=== PATIENT | female | born 1960 | race Caucasian/White ===

== ENCOUNTER → 2025-05-03 | Outpatient (CLI) | payer MEDICARE, OTHER, SELFPAY ==
[2025-05-03 18:19] LABS: Hematocrit 39.9 % (37-47); Hemoglobin 12.7 g/dL (12.0-15.0); Mean Corp Hgb Conc 31.8 g/dL (32-36); Mean Corpuscular Volume 84.9 fL (81-99); Mean Platelet Vol. 9.9 fl (6.2-12.0); Platelet Count 278 K/mm3 (150-450); RBC Distribution Width CV 14.6 % (11.6-14.6); RBC Distribution Width SD 45.5 fl (35.1-43.9)
[2025-05-03 19:02] LABS: Iron 40 ug/dL (50-170)
--- OUTSIDE RECORDS SUMMARY | 2025-05-03 23:56 | XMS RPT_ITS | CCD ---
Author Organization [facility] Care Team Providers Care Echo Tech Name Role Phone LOUIE COHEN, DR TRACEY Primary Care Physician [phone] ADAM COHEN, DR LAUREL Dunn Attending Unavailab Rosalia COHEN, DR TRACEY Primary Care Unavailable VALE ZHANG, JOHN Whitehead Attending Giorgio ZHANG, JOHN Whitehead Consulting Giorgio MEDINA MD, DR LAUREL Dunn Referring Unavailab Joan COHEN, DR LAUREL Dunn Admitting Unavailab Rosalia COHEN, DR TRACEY Primary Care Unavailable Chandni Mi Attending Unavailable Jamie SAUNDERS Admitting Unavailable Jamie SAUNDERS Primary Care Unavailable Jamie SAUNDERS Attending Unavailable KYUNG PALMA MD Admitting Unavailable KYUNG PALMA MD Primary Care Unavailable KYUNG PALMA MD Attending Unavailable Jamie SAUNDERS Admitting Unavailable Jamie SAUNDERS Primary Care Unavailable Jamie SAUNDERS Attending Unavailable CHINEDU GARCIA MD Attending Unavailable RAKESH GRAHAM Consulting Unavailable CHINEDU GARCIA MD Admitting Unavailable CHINEDU GARCIA MD Primary Care Unavailable PROVIDER, UNKNOWN Consulting Unavailable KYUNG PALMA MD Admitting Unavailable KYUNG PALMA MD Primary Care Unavailable KYUNG PALMA MD Attending Unavailable Allergies Allergy Classification Reported Allergen(s) Allergy Type Date of Onset Reaction(s) Facility (1 source) Adhesive Tape Drug allergy (disorder) 10-19-2024 [facility] Repository (1 source) Latex Drug allergy (disorder) 10-19-2024 [facility] Repository Medications Current Medications Medication Drug Class(es) Dates Sig (Normalized) Sig (Original) acetaminophen 500 mg oral tablet (1 source) Start: 3 End: 3 take 1 tablet by mouth once daily acetaminophen 500 mg oral tablet Dose : 1,000 mg = 2 tab(s), Oral, TID, PRN as needed for pain, not to exceed 3000 mg/day, X 14 day(s), # 100 tab(s), 0 Refill(s), 06/26/23 7:36:00 AM EDT, Pharmacy: [facility], 167.6, cm, 06/11/23 15:03:00 EDT, Height, kg, 06/11/23 15:03:00 EDT, Dosing Weight Start Date: 06/12/23 Stop Date: 06/26/23 Status: Ordered amLODIPine 2.5 mg oral tablet (2 sources) Dihydropyridine Calcium Channel Abram Start: 3 take 1 tablet by mouth once daily amLODIPine 2.5 mg oral tablet TAKE 1 TABLET BY MOUTH ONCE DAILY Start Date: 05/22/23 Status: Ordered aspirin 81 mg delayed release oral tablet (1 source) Platelet Aggregation Inhibitor, Nonsteroidal Anti-inflammatory Drug Start: 3 End: 3 take 1 tablet by mouth twice daily aspirin 81 mg oral delayed release tablet Dose : 81 mg = 1 tab(s), Oral, BID, Take 81 mg aspirin twice daily with food for 4 weeks postoperatively for DVT prophylaxis., # 60 tab(s), 0 Refill(s), Pharmacy: [facility], 167.6, cm, 06/11/23 15:03:00 EDT, Height, kg, 06/11/23 15:03:00 EDT, Dosing Weight Start Date: 06/12/23 Stop Date: 07/12/23 Status: Ordered docusate sodium 50 mg / sennosides, half-way 8.6 mg oral tablet (1 source) Start: 3 End: 3 take 1 tablet by mouth twice daily Senokot S 50 mg-8.6 mg oral tablet Dose = 2 tab(s), Oral, BID, Take until first bowel movement, then as needed, X 3 day(s), # 12 tab(s), 0 Refill(s), Pharmacy: [facility], 167.6, cm, 06/11/23 15:03:00 EDT, Height, kg, 06/11/23 15:03:00 EDT, Dosing Weight Start Date: 06/12/23 Stop Date: 06/15/23 Status: Ordered doxycycline hyclate 100 mg oral capsule (1 source) Tetracycline-class Drug Start: 3 End: 3 doxycycline hyclate 100 mg oral capsule Dose : 100 mg = 1 cap(s), Oral, q12h, X 14 day(s), # 28 cap(s), 0 Refill(s), 06/26/23 7:37:00 AM EDT, Pharmacy: [facility], 167.6, cm, 06/11/23 15:03:00 EDT, Height, 81.8, kg, 06/11/23 15:03:00 EDT, Dosing Weight Start Date: 06/12/23 Stop Date: 06/26/23 Status: Ordered hydroxychloroquine sulfate 200 mg oral tablet (2 sources) Antimalarial, Antirheumatic Agent Start: 3 Plaquenil 200 mg oral tablet Dose : 400 mg = 2 tab(s), Oral, qDay, # 180 tab(s), 0 Refill(s) Start Date: 05/22/23 Status: Ordered meloxicam 7.5 mg oral tablet (1 source) Nonsteroidal Anti-inflammatory Drug Start: 3 Mobic 7.5 mg oral tablet Dose : 7.5 mg = 1 tab(s), Oral, BIDM, Do not take any other nonsteroidal anti-inflammatories while on meloxicam/Mobic, # 60 tab(s), 0 Refill(s), Pharmacy: [facility], 167.6, cm, 06/11/23 15:03:00 EDT, Height, kg, 06/11/23 15:03:00 EDT, Dosing Weight Start Date: 06/12/23 Status: Ordered oxyCODONE hydrochloride 5 mg oral tablet (1 source) Opioid Agonist Start: 3 End: 3 take 1-2 tablets by mouth every four hours as needed for pain oxyCODONE 5 mg oral tablet ( IMMEDIATE release ) See Instructions, PRN as needed for pain, 1-2 tab(s) Oral q4h, # 42 tab(s), 0 Refill(s), 06/19/23 7:38:00 AM EDT, Pharmacy: [facility], History of revision of total replacement of left hip joint, 167.6, cm, 06/11/23 15:03:00 EDT, Height, 81.8, kg, 06/11/23 15:03:00 EDT, Dosing Weight Start Date: 06/12/23 Stop Date: 06/19/23 Status: Ordered pantoprazole 20 mg delayed release oral tablet (2 sources) Proton Pump Inhibitor Start: 3 pantoprazole 20 mg oral enteric coated tablet Dose : 20 mg = 1 tab(s), Oral, qDay, # 30 tab(s), 0 Refill(s) Start Date: 05/22/23 Status: Ordered sertraline 25 mg oral tablet (2 sources) Serotonin Reuptake Inhibitor Start: 3 Zoloft 25 mg oral tablet Dose : 25 mg = 1 tab(s), Oral, Daily, # 90 tab(s), 0 Refill(s) Start Date: 05/22/23 Status: Ordered Vitamin D3 25 mcg (1000 intl units) oral tablet (2 sources) Start: 3 Vitamin D3 25 mcg (1000 intl units) oral tablet Dose : 25 mcg = 1 tab(s), Oral, qDay, # 30 tab(s), 0 Refill(s) Start Date: 05/22/23 Status: Ordered Problems Active Problems Problem Classification Problem Date Documented Da te Episodic/Chronic Cardiac dysrhythmias (1 source) Sinus bradycardia; Translations: [Bradycardia, unspecified] Onset: 06-12-2023 Episodic Deficiency and other anemia (1 source) Iron deficiency anemia, unspecified; Translations: [Iron deficiency anemia, unspecified] Onset: 02-02-2025 Episodic Essential hypertension (1 source) Essential hypertension; Translations: [Essential (primary) hypertension] Onset: 06-11-2023 Chronic Fluid and electrolyte disorders (1 source) Hyperkalemia; Translations: [Hyperkalemia] Onset: 06-12-2023 Episodic Osteoarthritis (1 source) Osteoarthritis; Translations: [Unspecified osteoarthritis, unspecified site] Onset: 06-11-2023 Chronic Other connective tissue disease (1 source) Hip joint prosthesis present; Translations: [Presence of left artificial hip joint] Onset: 06-12-2023 Chronic Other screening for suspected conditions (not mental disorders or infectious disease) (1 source) Encounter for screening for lipoid disorders; Translations: [Encounter for screening for lipoid disorders] Onset: 02-02-2025 Episodic Prolapse of female genital organs (2 sources) Cystocele, unspecified; Translations: [Rectocele] Onset: 04-12-2025 Chronic Rheumatoid arthritis and related disease (1 source) Rheumatoid arthritis; Translations: [Rheumatoid arthritis, unspecified] Onset: 06-11-2023 Chronic Systemic lupus erythematosus and connective tissue disorders (1 source) Sicca syndrome, unspecified; Translations: [Sjogren syndrome, unspecified] Onset: 02-02-2025 Chronic Past or Other Problems Problem Classification Problem Date Documented Da te Episodic/Chronic Other aftercare (3 sources) Other household worker (current) drug therapy; Translations: [Other skilled nursing (current) drug therapy] Onset: 01-06-2025 Episodic Other hematologic conditions (1 source) Other abnormality of red blood cells; Translations: [Other abnormality of red blood cells] Onset: 08-19-2024 Episodic Results Test Name Value Interpretation Reference Range Facility CT HI RES CHEST W/O CONTRAST on 04-30-2025 CT HI RES CHEST W/O CONTRAST [place] [address] Patient: ABBY DE LOS SANTOS Phone#: : 1960 Age: 64 Gender: F Pt. Type: Out Account: [id number] Location: [facility] Ordering: CHINEDU GARCIA Exam Date: 04/30/2025/8:14 Family Phys: RAKESH GRAHAM Charge Code: 582822 Physician: [place] Order #: [id number] Dose#: 23.80 PROCEDURE: CT HI RES CHEST WITHOUT CONTRAST COMPARISON: None. INDICATIONS: Rheumatoid arthritis. TECHNIQUE: CT images were created without the administration of contrast material. All CT scans at this facility use dose modulation, iterative reconstruction, and/or weight based dosing when appropriate to reduce radiation dose to as low as reasonably achievable. IV CONTRAST: No IV contrast used,0ml TOTAL DOSE: 23.80 CTDIvol(mGy) FINDINGS: LUNGS: Multiple bilateral calcified granulomas are present. Granulomas vary in size from 2 millimeters to 18 millimeters. Possibility of sarcoidosis is raised. Multiple bilateral bulla are present. VASCULATURE: Normal. Thrombus cannot be excluded without intravenous contrast. LITTLE: Normal. No mass or adenopathy. MEDIASTINUM: Normal. No mass or adenopathy. CARDIAC: Normal. No enlargement, pericardial thickening, or significant calcification. PLEURA: Normal. No mass or effusion. AORTA: Normal. No aneurysm. CHEST WALL: Normal. No mass or axillary adenopathy. LIMITED ABDOMEN: Normal. Limited images of the upper abdomen are unremarkable. BONES: Normal. No bony lesion or fracture. OTHER: Negative. CONCLUSION: 1. Multiple scattered granulomatous nodules. Possibility of sarcoidosis is raised. 2. Multiple bulla present bilaterally. Dictated by: Miriam Albright MD on 04/30/2025 at 13:20 Continued Report - Page 2 of 2 Patient: ABBY DE LOS SANTOS Phone#: : 1960 Age: 64 Gender: F Pt. Type: Out Account: [id number] Location: [facility] Ordering: CHINEDU GARCIA Exam Date: 04/30/2025/8:14 Family Phys: RAKESH GRAHAM Charge Code: 500515 Physician: [place] Order #: [id number] Dose#: 23.80 Approved by: Miriam Albright MD on 04/30/2025 at 14:20 Normal [facility] BUN/CREAT eGFR (NON-)on 01-06-2025 AGE 64 years Normal [facility] Comment on above: Performed By: #### 2 97007 #### [facility],[address] [place] [address] BUN/CREAT eGFR (NON-) Normal [facility] Comment on above: Result Comment: BUN/ CREATININE eGFR NON-) Performed By: #### 2 49111 #### [facility],[address] [place] [address] Creatinine [Mass/Vol] 0.58 mg/dL Normal 0.55 - 1.02 [facility] Comment on above: Performed By: #### 2 48923 #### [address] [address] GFR/1.73 sq M.predicted among non-blacks MDRD (S/P/Bld) [Vol rate/Area] mL/min/{1.73_m2} Normal 60 - 999 [facility] Comment on above: Result Comment: ACCO RDING TO THE NATIONAL KIDNEY DISEASE EDUCATION PROGRAM(NKDE),A NORMAL eGFR IS A VALUE GREATER THAN OR EQUAL TO 60 ML/MIN/1.73 SQ METERS.KIDNEY DISEASE MAY BE PRESENT WHEN THE eGFR IS LESS THAN 60 ML/MIN/1.73 SQ METERS.VALUES LESS THEN 15 ML/MIN/1.73 SQ METERS INDICATE KIDNEY FAILURE.THIS TEST SHOULD ONLY BE USED FOR PATIENTS 18 AND OLDER. Performed By: #### 2 84062 #### [address] [address] Urea nitrogen [Mass/Vol] 15 mg/dL Normal 7 - 18 [facility] Comment on above: Performed By: #### 2 92464 #### [address] [address] C-REACTIVE PROTEINon 025 CRP 0.43 mg/dl Normal 0.00 - 0.90 [facility] Comment on above: Performed By: #### 2 21180 #### [address] [address] CBC + DIFFon 01-06-2025 Baso # 0.01 x10EE3/UL Normal 0.00 - 0.10 [facility] Comment on above: Performed By: #### 2 92650 #### [address] [address] Basophils/100 WBC (Bld) 0.2 % Normal 0.0 - 2.0 [facility] Comment on above: Performed By: #### 2 96217 #### [address] [address] CBC + DIFF Normal [facility] Comment on above: Result Comment: CBC- COMPLETE BLOOD COUNT Performed By: #### 2 71500 #### [facility],[address] [place] [address] EO # 0.10 x10EE3/UL Normal 0.00 - 0.50 [facility] Comment on above: Performed By: #### 2 65247 #### [place] [id number] Eosinophils/100 WBC (Bld) 2.6 % Normal 0.0 - 7.0 [facility] Comment on above: Performed By: #### 2 42382 #### [facility],[address] [place] [address] Erythrocyte distribution width (RBC) [Ratio] 15.7 % High 12.0 - 15.6 [facility] Comment on above: Performed By: #### 2 01135 #### [facility],[address] [place], [place] [id number] Hematocrit (Bld) [Volume fraction] 37.5 % Normal 34.0 - 46.0 [facility] Comment on above: Performed By: #### 2 00239 #### [facility],[address] [place], [place] [id number] Hemoglobin (Bld) [Mass/Vol] 13.1 g/dL Normal 12.0 - 16.0 [facility] Comment on above: Performed By: #### 2 28225 #### [address] [address] Lymph # 0.78 x10EE3/UL Low 0.80 - 2.80 [facility] Comment on above: Performed By: #### 2 38918 #### [facility],[address] [place] [address] Lymphocytes/100 WBC (Bld) 20.5 % Normal 20.0 - 45.0 [facility] Comment on above: Performed By: #### 2 67237 #### [facility],[address] [place] [address] MANUAL DIFF N/A Normal [facility] Comment on above: Performed By: #### 2 47833 #### [facility],[address] [place] [address] MCH (RBC) [Entitic mass] 29 pg Normal 27 - 33 [facility] Comment on above: Performed By: #### 2 02655 #### [facility],[address] [place] [address] MCHC 35 X10 3 Normal 32 - 36 [facility] Comment on above: Performed By: #### 2 75325 #### [facility],[address] [place] [address] MCV (RBC) [Entitic vol] 83 fL Normal 80 - 99 [facility] Comment on above: Performed By: #### 2 78289 #### [facility],[address] [place] [address] [place] # 0.31 x10EE3/UL Normal 0.20 - 1.00 [facility] Comment on above: Performed By: #### 2 97121 #### [facility],[address] [place] [address] MONOS % 8.1 % Normal 0.0 - 10.0 [facility] Comment on above: Performed By: #### 2 48510 #### [facility],[address] [place] [address] Morphology Khoi (Bld) [Interp] N/A Normal [facility] Comment on above: Performed By: #### 2 54058 #### [facility],[address] [place] [address] Neut # 2.61 x10EE3/UL Normal 1.50 - 7.10 [facility] Comment on above: Performed By: #### 2 89882 #### [facility],[address] [place], [place] [address] Neutrophils/100 WBC (Bld) 68.6 % Normal 46.0 - 76.0 [facility] Comment on above: Performed By: #### 2 61827 #### [facility],[address] [place], [place] [id number] PLATELET 266 x10EE3/UL Normal 150 - 450 [facility] Comment on above: Performed By: #### 2 14212 #### [facility],[address] [place] [address] Platelet mean volume (Bld) [Entitic vol] 8.3 fL Normal 6.6 - 10.5 [facility] Comment on above: Result Comment: AUTO MATED DIFFERENTIAL Performed By: #### 2 46360 #### [facility],[address] [place] [address] RBC 4.53 x 10EE6/UL Normal 4.10 - 5.[address] [facility] Comment on above: Performed By: #### 2 74892 #### [facility],[address] [place], [place] [phone] WBC 3.8 x 10EE3/UL Low 4.5 - 10.8 [facility] Comment on above: Performed By: #### 2 99091 #### [facility],[address] [place] [address] SEDRATEon 01-06-2025 SEDRATE 6 mm/hr Normal 0 - 30 [facility] Comment on above: Performed By: #### 2 18374 #### [facility],[address] [place] [address] SGOT (AST)on 01-06-2025 AST [Catalytic activity/Vol] 22 U/L Normal 13 - 39 [facility] Comment on above: Performed By: #### 2 79356 #### [facility],[address] [place] [address] SGPT (ALT)on 01-06-2025 ALT [Catalytic activity/Vol] 24 U/L Normal 16 - 63 [facility] Comment on above: Performed By: #### 2 78448 #### [facility],[address] [place] [id number] [facility] Office Visit Reporton 09-02-2024 [facility] Office Visit Report [facility] [place] [address] 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 Is patient in pain?: No Allergies adhesive tape (tape) Adverse Reaction (Mild, Verified 10/19/24 07:59) irritation latex Adverse Reaction (Mild, Verified 10/19/24 07:59) irritation Medications ???Medication ???Instructions ???Recorded ???Confirmed ???Type acetaminophen 500 mg tablet 500 mg PO Q6H PRN 09/02/24 09/02/24 History (Tylenol Extra Strength) amlodipine 5 mg tablet 5 mg PO QDAY 09/02/24 09/02/24 History antiarthritic combination no.2 900 mg PO 09/02/24 09/02/24 History mg tablet (glucosamine-chondroi tin) ferrous sulfate 325 mg (65 mg 325 mg PO QDAY 09/02/24 09/02/24 History iron) tablet hydroxychloroquine 200 mg tablet 200 mg PO BID 09/02/24 09/02/24 History (Plaquenil) pantoprazole 20 mg tablet,delayed 20 mg PO QDAY 09/02/24 09/02/24 History release prednisone 5 mg tablet 5 mg PO DIRECTED 09/02/24 09/02/24 History sertraline 25 mg tablet 25 mg PO QDAY 09/02/24 09/02/24 History Post menopausal: Yes Current gender identity: female [facility] Medical History History of blood transfusion Left tibial fracture Facial bone fracture Surgical History S/P ORIF (open reduction internal fixation) fracture H/O laminectomy History of laparotomy History of total vaginal hysterectomy (TVH) History of left hip replacement Family History Father Alcoholism Arthritis Autoimmune disorder Mother Cancer Fallopian tubes Myocardial infarction Sister Anesthesia complication Bleeding disorder Hypertension Osteoporosis Grandmother Diabetes Brother COPD (chronic obstructive pulmonary disease) Asbestos related Social History (Updated 10/19/24 @ 08:03 by Cary Garcia) adopted: No household members: spouse housing: house number of children: 1 service: No current occupational status: retired pets and animals: Yes pets and animals: dog(s) history of recent travel: No sexually active: Yes current gender identity: female Smoking Status: Former smoker how long ago did patient quit smokin years ago quit status: quit date established alcohol intake: current substance use type: does not use well-balanced diet: daily or most days caffeine: Yes Type: coffee Number of servings: 2 what type of physical activity do you participate in: other details: rarely mathew/hinduism: Congregation seatbelt use: always do you feel safe at home: Yes additional social history: - Bertrand HPI Encounter for routine gynecological examination Details: ABBY DE LOS SANTOS is a 63 year old who presents for annual exam. She has previous TVH due to heavy periods; she is unsure if ovaries were removed as well; no records for review thus far; request has been placed. She reports no issues or concerns today. Last PAP: 08/2013 History of abnormal PAP: None Last mammogram: 05/2024; normal. History of abnormal mammogram: none Colon cancer screening: Scheduled 10/23/24 on Saturday-Dr. Sharp. Other preventative health care screenings: PCP: Dr. Latouf. Stern. Female Reproductive History Questions: metorrhagia: No, sexually active: Yes, dyspareunia: No and PCB: No Menopausal Symptoms: No hot flashes, No night sweats, No weight change, No mood changes, No difficulty concentrating and No sleep problems ROS Const Constitutional: Denies chills, fatigue, fever(s), headache(s), night sweats or weight loss Eyes Eyes: Denies change in vision ENT ENT: Denies dizziness Cardio Card: Denies palpitations Resp Resp: Denies cough or dyspnea GI GI: Denies abdominal pain, constipation or nausea : Reports prolapse symptoms; Denies difficulty voiding, dysuria, hematuria, hot flashes, nipple discharge, pelvic pain, urinary incontinence, urinary urgency, vaginal discharge, vaginal dryness, vaginal odor or vaginal pruritus Skin Skin/Breast: Denies alopecia, rash, breast mass, breast pain, breast skin changes or nipple discharge Neuro Neuro: Denies dizziness Psych Psych: Denies anxiety, depression or difficulty concentrating Endo Endo: Denies cold intolerance, excessive sweating or heat intolerance Exam Const General: cooperative, healthy appearing, no acute distress and well groomed Nutritional Appearance: well nourished O (more content not included)... Normal [facility] CBC + DIFFon 08-19-2024 Baso # 0.02 x10EE3/UL Normal 0.00 - 0.10 [facility] Comment on above: Performed By: #### 2 10060 #### [facility],[address] [place], [place] [phone] Basophils/100 WBC (Bld) 0.5 % Normal 0.0 - 2.0 [facility] Comment on above: Performed By: #### 2 36772 #### [facility],[address] [place] [address] CBC + DIFF Normal [facility] Comment on above: Result Comment: CBC- COMPLETE BLOOD COUNT Performed By: #### 2 87508 #### [facility],[address] [place], [place] [phone] EO # 0.05 x10EE3/UL Normal 0.00 - 0.50 [facility] Comment on above: Performed By: #### 2 45384 #### [facility],[address] [place] [address] Eosinophils/100 WBC (Bld) 1.5 % Normal 0.0 - 7.0 [facility] Comment on above: Performed By: #### 2 26044 #### [facility],[address] [place], [place] [phone] Erythrocyte distribution width (RBC) [Ratio] 17.9 % High 12.0 - 15.6 [facility] Comment on above: Performed By: #### 2 82634 #### [facility],[address] [place] [address] Hematocrit (Bld) [Volume fraction] 38.5 % Normal 34.0 - 46.0 [facility] Comment on above: Performed By: #### 2 31644 #### [facility],[address] [place] [address] Hemoglobin (Bld) [Mass/Vol] 12.3 g/dL Normal 12.0 - 16.0 [facility] Comment on above: Performed By: #### 2 54503 #### [facility],[address] [place] [address] Lymph # 0.85 x10EE3/UL Normal 0.80 - 2.80 [facility] Comment on above: Performed By: #### 2 37757 #### [facility],[address] [place] [address] Lymphocytes/100 WBC (Bld) 23.7 % Normal 20.0 - 45.0 [facility] Comment on above: Performed By: #### 2 57241 #### [facility],[address] [place] [address] MANUAL DIFF N/A Normal [facility] Comment on above: Performed By: #### 2 84650 #### [facility],[address] [place], [place] [phone] MCH (RBC) [Entitic mass] 25 pg Low 27 - 33 [facility] Comment on above: Performed By: #### 2 70379 #### [facility],[address] [place] [address] MCHC 32 X10 3 Normal 32 - 36 [facility] Comment on above: Performed By: #### 2 32503 #### [facility],[address] [place] [address] MCV (RBC) [Entitic vol] 79 fL Low 80 - 99 [facility] Comment on above: Performed By: #### 2 28220 #### [facility],[address] [place] [address] [place] # 0.33 x10EE3/UL Normal 0.20 - 1.00 [facility] Comment on above: Performed By: #### 2 90213 #### [facility],[address] [place] [address] 89008 MONOS % 9.3 % Normal 0.0 - 10.0 [facility] Comment on above: Performed By: #### 2 37636 #### [facility],[address] [place] [address] 56901 Morphology Khoi (Bld) [Interp] N/A Normal [facility] Comment on above: Performed By: #### 2 92697 #### [facility],[address] [place] [address] 24796 Neut # 2.35 x10EE3/UL Normal 1.50 - 7.10 [facility] Comment on above: Performed By: #### 2 33870 #### [facility],[address] [place] [address] 31865 Neutrophils/100 WBC (Bld) 65.1 % Normal 46.0 - 76.0 [facility] Comment on above: Performed By: #### 2 31801 #### [facility],[address] [place] [address] 76454 PLATELET 284 x10EE3/UL Normal 150 - 450 [facility] Comment on above: Performed By: #### 2 61697 #### [facility],[address] [place] [address] 78331 Platelet mean volume (Bld) [Entitic vol] 8.3 fL Normal 6.6 - 10.5 [facility] Comment on above: Result Comment: AUTO MATED DIFFERENTIAL Performed By: #### 2 41657 #### [facility],[address] [place] [address] 55894 RBC 4.85 x 10EE6/UL Normal 4.10 - 5.[address] [facility] Comment on above: Performed By: #### 2 58539 #### [facility],[address] [place] [address] 83761 WBC 3.6 x 10EE3/UL Low 4.5 - 10.8 [facility] Comment on above: Performed By: #### 2 19591 #### [facility],[address] [place] [address] 78298 FERRITINon 08-19-2024 Ferritin [Mass/Vol] 21 ng/mL Normal 8 - 388 [facility] Comment on above: Performed By: #### 2 62292 #### [facility],[address] [place] [address] 64247 IRON AND TIBCon 08-19-2024 %SATURATION 10 % Normal [facility] Comment on above: Performed By: #### 2 52690 #### [facility],[address] [place] [address] 02095 Iron [Mass/Vol] 43 ug/dL Low 50 - 170 [facility] Comment on above: Performed By: #### 2 22208 #### [facility],[address] [place] [address] 10424 TIBC 442 ug/dl Normal 250 - 450 [facility] Comment on above: Performed By: #### 2 88001 #### [facility],[address] [place] [address] 00925 UIBC 399 ug/dL High 155 - 355 [facility] Comment on above: Performed By: #### 2 58354 #### [facility],[address] [place] [address] 83463 BUN/CREAT eGFR (NON-)on 07-07-2024 AGE 63 years Normal [facility] Comment on above: Performed By: #### 2 36906 #### [facility],[address] [place] [address] 68046 BUN/CREAT eGFR (NON-) Normal [facility] Comment on above: Result Comment: BUN/ CREATININE eGFR NON-) Performed By: #### 2 72591 #### [facility],[address] [place] [address] Creatinine [Mass/Vol] 0.64 mg/dL Normal 0.55 - 1.02 [facility] Comment on above: Performed By: #### 2 66355 #### [facility],[address] [place], [place] [address] GFR/1.73 sq M.predicted among non-blacks MDRD (S/P/Bld) [Vol rate/Area] mL/min/{1.73_m2} Normal 60 - 999 [facility] Comment on above: Result Comment: ACCO RDING TO THE NATIONAL KIDNEY DISEASE EDUCATION PROGRAM(NKDE),A NORMAL eGFR IS A VALUE GREATER THAN OR EQUAL TO 60 ML/MIN/1.73 SQ METERS.KIDNEY DISEASE MAY BE PRESENT WHEN THE eGFR IS LESS THAN 60 ML/MIN/1.73 SQ METERS.VALUES LESS THEN 15 ML/MIN/1.73 SQ METERS INDICATE KIDNEY FAILURE.THIS TEST SHOULD ONLY BE USED FOR PATIENTS 18 AND OLDER. Performed By: #### 2 47141 #### [facility],[address] [place] [address] 47031 Urea nitrogen [Mass/Vol] 14 mg/dL Normal 7 - 18 [facility] Comment on above: Performed By: #### 2 31736 #### [facility],[address] [place] [address] 51557 C-REACTIVE PROTEINon 024 CRP 0.92 mg/dl High 0.00 - 0.90 [facility] Comment on above: Performed By: #### 2 41314 #### [facility],[address] [place], [place] [address] CBC + DIFFon 07-07-2024 Baso # 0.02 x10EE3/UL Normal 0.00 - 0.10 [facility] Comment on above: Performed By: #### 2 43465 #### [facility],[address] [place] [address] 73522 Basophils/100 WBC (Bld) 0.5 % Normal 0.0 - 2.0 [facility] Comment on above: Performed By: #### 2 93304 #### [facility],[address] [place] [address] 61083 CBC + DIFF Normal [facility] Comment on above: Result Comment: CBC- COMPLETE BLOOD COUNT Performed By: #### 2 38276 #### [facility],[address] [place] [address] EO # 0.07 x10EE3/UL Normal 0.00 - 0.50 [facility] Comment on above: Performed By: #### 2 11588 #### [facility],[address] [place] [address] 81575 Eosinophils/100 WBC (Bld) 1.4 % Normal 0.0 - 7.0 [facility] Comment on above: Performed By: #### 2 58246 #### [facility],[address] [place], [place] [address] Erythrocyte distribution width (RBC) [Ratio] 16.6 % High 12.0 - 15.6 [facility] Comment on above: Performed By: #### 2 24474 #### [facility],[address] [place] [address] Hematocrit (Bld) [Volume fraction] 38.1 % Normal 34.0 - 46.0 [facility] Comment on above: Performed By: #### 2 68392 #### [facility],[address] [place] [address] 65882 Hemoglobin (Bld) [Mass/Vol] 12.4 g/dL Normal 12.0 - 16.0 [facility] Comment on above: Performed By: #### 2 64952 #### [facility],[address] [place] [address] Lymph # 1.03 x10EE3/UL Normal 0.80 - 2.80 [facility] Comment on above: Performed By: #### 2 71162 #### [facility],[address] [place], [place] [address] Lymphocytes/100 WBC (Bld) 21.1 % Normal 20.0 - 45.0 [facility] Comment on above: Performed By: #### 2 51856 #### [facility],[address] [place] [address] MANUAL DIFF N/A Normal [facility] Comment on above: Performed By: #### 2 93040 #### [facility],[address] [place] [address] MCH (RBC) [Entitic mass] 25 pg Low 27 - 33 [facility] Comment on above: Performed By: #### 2 09783 #### [facility],[address] [place] [address] 95378 MCHC 33 X10 3 Normal 32 - 36 [facility] Comment on above: Performed By: #### 2 66781 #### [facility],[address] [place] [address] 13370 MCV (RBC) [Entitic vol] 76 fL Low 80 - 99 [facility] Comment on above: Performed By: #### 2 95415 #### [facility],[address] [place] [address] 16227 Marin # 0.35 x10EE3/UL Normal 0.20 - 1.00 [facility] Comment on above: Performed By: #### 2 31570 #### [facility],[address] [place] [address] 71245 MONOS % 7.0 % Normal 0.0 - 10.0 [facility] Comment on above: Performed By: #### 2 88232 #### [facility],[address] [place] [address] 54006 Morphology Khoi (Bld) [Interp] N/A Normal [facility] Comment on above: Performed By: #### 2 50430 #### [facility],[address] [place] [address] 29910 Neut # 3.44 x10EE3/UL Normal 1.50 - 7.10 [facility] Comment on above: Performed By: #### 2 34860 #### [facility],[address] [place] [address] 79085 Neutrophils/100 WBC (Bld) 70.1 % Normal 46.0 - 76.0 [facility] Comment on above: Performed By: #### 2 96721 #### [facility],[address] [place] [address] 85991 PLATELET 294 x10EE3/UL Normal 150 - 450 [facility] Comment on above: Performed By: #### 2 60338 #### [facility],[address] [place] [address] 76802 Platelet mean volume (Bld) [Entitic vol] 8.2 fL Normal 6.6 - 10.5 [facility] Comment on above: Result Comment: AUTO MATED DIFFERENTIAL Performed By: #### 2 18534 #### [facility],[address] [place] [address] 37791 RBC 5.04 x 10EE6/UL Normal 4.10 - 5.[address] [facility] Comment on above: Performed By: #### 2 49854 #### [facility],[address] [place] [address] 64240 WBC 4.9 x 10EE3/UL Normal 4.5 - 10.8 [facility] Comment on above: Performed By: #### 2 30608 #### [facility],[address] [place] [address] 57731 SEDRATEon 07-07-2024 SEDRATE 7 mm/hr Normal 0 - 30 [facility] Comment on above: Performed By: #### 2 63330 #### [facility],[address] [place], [place] [address] SGOT (AST)on 07-07-2024 AST [Catalytic activity/Vol] 21 U/L Normal 13 - 39 [facility] Comment on above: Performed By: #### 2 91676 #### [facility],[address] [place], [place] [address] SGPT (ALT)on 07-07-2024 ALT [Catalytic activity/Vol] 18 U/L Normal 16 - 63 [facility] Comment on above: Performed By: #### 2 31921 #### [facility],[address] [place] [address] .Auto Diffon 06-12-2023 Basophil, Absolute 0.0 10 3/mcL Normal 0.0-0.2 [facility] ([place]) Comment on above: Performed By: #### A DIFF, ANEU, BMP, CBC, GFR #### [address] [address] Basophils/100 WBC (Bld) 0.1 % Normal 0.0-2.5 [facility] ([place]) Comment on above: Performed By: #### A DIFF, ANEU, BMP, CBC, GFR #### [address] [address] Eosinophil, Absolute 0.0 10 3/mcL Normal 0.0-0.4 [facility] ([place]) Comment on above: Performed By: #### A DIFF, ANEU, BMP, CBC, GFR #### [address] [address] Eosinophils/100 WBC (Bld) 0.0 % Normal 0.0-7.0 [facility] ([place]) Comment on above: Performed By: #### A DIFF, ANEU, BMP, CBC, GFR #### [address] [address] Lymphocyte, Absolute 0.6 10 3/mcL Low 0.8-3.9 [facility] ([place]) Comment on above: Performed By: #### A DIFF, ANEU, BMP, CBC, GFR #### [address] [address] Lymphocytes/100 WBC (Bld) 6.7 % Low 10.0-50.0 [facility] ([place]) Comment on above: Performed By: #### A DIFF, ANEU, BMP, CBC, GFR #### [address] [address] Monocyte, Absolute 0.5 10 3/mcL Normal 0.2-1.0 [facility] ([place] Comment on above: Performed By: #### A DIFF, ANEU, BMP, CBC, GFR #### [address] [address] Monocytes/100 WBC (Bld) 6.2 % Normal 1.7-13.0 [facility] ([place]) Comment on above: Performed By: #### A DIFF, ANEU, BMP, CBC, GFR #### [address] [address] Neutrophils/100 WBC (Bld) 87.0 % High 37.0-80.0 [facility] ([place]) Comment on above: Performed By: #### A DIFF, ANEU, BMP, CBC, GFR #### [address] [address] .GFRon 06-12-2023 GFR Non- 86 ml/min/1.73sqm Normal [facility] ([place]) Comment on above: Result Comment: GFR Population mean for , Non- Americans Ages 20-29 = 116 mL/min/1.73 sq.m. Ages 30-39 = 107 mL/min/1.73 sq.m. Ages 40-49 = 99 mL/min/1.73 sq.m. Ages 50-59 = 93 mL/min/1.73 sq.m. Ages 60-69 = 85 mL/min/1.73 sq.m. Ages 70+ = 75 mL/min/1.73 sq.m. Chronic Kidney Disease: Less than 60 mL/min/1.73 square meters End Stage Renal Disease: Less than 15 mL/min/1.73 square meters Performed By: #### A DIFF, ANEU, BMP, CBC, GFR #### [address] [address] GFR 104 ml/min/1.73sqm Normal [facility] ([place]) Comment on above: Result Comment: GFR Population mean for , Non- Americans Ages 20-29 = 116 mL/min/1.73 sq.m. Ages 30-39 = 107 mL/min/1.73 sq.m. Ages 40-49 = 99 mL/min/1.73 sq.m. Ages 50-59 = 93 mL/min/1.73 sq.m. Ages 60-69 = 85 mL/min/1.73 sq.m. Ages 70+ = 75 mL/min/1.73 sq.m. Chronic Kidney Disease: Less than 60 mL/min/1.73 square meters End Stage Renal Disease: Less than 15 mL/min/1.73 square meters Performed By: #### A DIFF, ANEU, BMP, CBC, GFR #### [address] [address] .NEUABSon 06-12-2023 Neutrophil, Absolute 7.5 10 3/mcL High 2.9-6.2 [facility] ([place]) Comment on above: Performed By: #### A DIFF, ANEU, BMP, CBC, GFR #### [address] [address] BMPon 06-12-2023 BUN/Creatinine Ratio 14 ratio Normal 7-27 [facility] ([place]) Comment on above: Performed By: #### A DIFF, ANEU, BMP, CBC, GFR #### [address] [address] Calcium [Mass/Vol] 8.3 mg/dL Low 8.4-10.2 [facility] ([place]) Comment on above: Performed By: #### A DIFF, ANEU, BMP, CBC, GFR #### [address] [address] Chloride [Moles/Vol] 106 mmol/L Normal 98-107 [facility] ([place]) Comment on above: Performed By: #### A DIFF, ANEU, BMP, CBC, GFR #### [address] [address] CO2 [Moles/Vol] 30 mmol/L Normal 23-31 [facility] ([place]) Comment on above: Performed By: #### A DIFF, ANEU, BMP, CBC, GFR #### [address] [address] Creatinine [Mass/Vol] 0.69 mg/dL Normal 0.55-1.02 [facility] ([place]) Comment on above: Performed By: #### A DIFF, ANEU, BMP, CBC, GFR #### [address] [address] Electrolyte Balance 5.0 mEq/L Normal 4.0-15.0 [facility] ([place]) Comment on above: Performed By: #### A DIFF, ANEU, BMP, CBC, GFR #### [address] [address] Glucose [Mass/Vol] 111 mg/dL Normal 80-115 [facility] ([place]) Comment on above: Performed By: #### A DIFF, ANEU, BMP, CBC, GFR #### [address] [address] Potassium [Moles/Vol] 5.5 mmol/L High 3.5-5.1 [facility] ([place]) Comment on above: Performed By: #### A DIFF, ANEU, BMP, CBC, GFR #### [address] [address] Sodium [Moles/Vol] 141 mmol/L Normal 136-145 [facility] ([place]) Comment on above: Performed By: #### A DIFF, ANEU, BMP, CBC, GFR #### [address] [address] Urea nitrogen [Mass/Vol] 10 mg/dL Normal 7-18 [facility] ([place]) Comment on above: Performed By: #### A DIFF, ANEU, BMP, CBC, GFR #### [address] [address] CBCon 06-12-2023 Erythrocyte distribution width (RBC) [Ratio] 15.8 % High 11.5-14.5 [facility] ([place]) Comment on above: Performed By: #### A DIFF, ANEU, BMP, CBC, GFR #### [address] [address] Hematocrit (Bld) [Volume fraction] 34.1 % Low 37.0-47.0 [facility] ([place]) Comment on above: Performed By: #### A DIFF, ANEU, BMP, CBC, GFR #### [place] [id number] Hgb 11.2 G/dL Low 12.0-16.0 [facility] ([place] Comment on above: Performed By: #### A DIFF, ANEU, BMP, CBC, GFR #### [address] [address] MCH (RBC) [Entitic mass] 26.9 pg Low 27.0-31.2 [facility] ([place]) Comment on above: Performed By: #### A DIFF, ANEU, BMP, CBC, GFR #### [place] [id number] MCHC 32.9 G/dL Low 33.0-37.0 [facility] ([place] Comment on above: Performed By: #### A DIFF, ANEU, BMP, CBC, GFR #### [address] [address] MCV (RBC) [Entitic vol] 81.6 fL Normal 80.0-94.0 [facility] ([place]) Comment on above: Performed By: #### A DIFF, ANEU, BMP, CBC, GFR #### [address] [address] Platelet 220 10 3/mcL Normal 130-400 [facility] ([place] Comment on above: Performed By: #### A DIFF, ANEU, BMP, CBC, GFR #### [place] [id number] Platelet mean volume (Bld) [Entitic vol] 8.3 fL Normal 7.4-10.4 [facility] ([place]) Comment on above: Performed By: #### A DIFF, ANEU, BMP, CBC, GFR #### [place] [address] [place], [place] [address] RBC 4.18 10 6/mcL Low 4.20-5.40 [facility] ([place]) Comment on above: Performed By: #### A DIFF, ANEU, BMP, CBC, GFR #### [place] [address] [place], [place] [address] WBC 8.7 10 3/mcL Normal 4.6-10.8 [facility] ([place]) Comment on above: Performed By: #### A DIFF, ANEU, BMP, CBC, GFR #### [address] [address] LABORATORYOrdered By: SYSTEM SYSTEM on 06-12-2023 Basophil, Absolute 0.0 103/mcL Invalid Interpretation Code 0.0 - 0.2 10^3/mcL AO Workflow SS Basophils/100 WBC (Bld) 0.1 % Invalid Interpretation Code 0.0 - 2.5 % AO Workflow SS Calcium [Mass/Vol] 8.3 mg/dL Invalid Interpretation Code 8.4 - 10.2 mg/dL AO ADM SS Chloride [Moles/Vol] 106 mmol/L Invalid Interpretation Code 98 - 107 mmol/L AO ADM SS CO2 [Moles/Vol] 30 mmol/L Invalid Interpretation Code 23 - 31 mmol/L AO ADM SS Creatinine [Mass/Vol] 0.69 mg/dL Invalid Interpretation Code 0.55 - 1.02 mg/dL AO ADM SS Electrolyte Balance 5.0 mEq/L Invalid Interpretation Code 4.0 - 15.0 mEq/L AO ADM SS Eosinophil, Absolute 0.0 103/mcL Invalid Interpretation Code 0.0 - 0.4 10^3/mcL AO Workflow SS Eosinophils/100 WBC (Bld) 0.0 % Invalid Interpretation Code 0.0 - 7.0 % AO Workflow SS Erythrocyte distribution width (RBC) [Ratio] 15.8 % Invalid Interpretation Code 11.5 - 14.5 % AO Workflow SS GFR/1.73 sq M.predicted among blacks MDRD (S/P/Bld) [Vol rate/Area] 104 ml/min/1.73sqm Invalid Interpretation Code AO Chemistry S Comment on above: Interpretive Data: GFR Population mean for , Non- Americans Ages 20-29 = 116 mL/min/1.73 sq.m. Ages 30-39 = 107 mL/min/1.73 sq.m. Ages 40-49 = 99 mL/min/1.73 sq.m. Ages 50-59 = 93 mL/min/1.73 sq.m. Ages 60-69 = 85 mL/min/1.73 sq.m. Ages 70+ = 75 mL/min/1.73 sq.m. Chronic Kidney Disease: Less than 60 mL/min/1.73 square meters End Stage Renal Disease: Less than 15 mL/min/1.73 square meters GFR/1.73 sq M.predicted among non-blacks MDRD (S/P/Bld) [Vol rate/Area] 86 ml/min/1.73sqm Invalid Interpretation Code AO Chemistry S Comment on above: Interpretive Data: GFR Population mean for , Non- Americans Ages 20-29 = 116 mL/min/1.73 sq.m. Ages 30-39 = 107 mL/min/1.73 sq.m. Ages 40-49 = 99 mL/min/1.73 sq.m. Ages 50-59 = 93 mL/min/1.73 sq.m. Ages 60-69 = 85 mL/min/1.73 sq.m. Ages 70+ = 75 mL/min/1.73 sq.m. Chronic Kidney Disease: Less than 60 mL/min/1.73 square meters End Stage Renal Disease: Less than 15 mL/min/1.73 square meters Glucose [Mass/Vol] 111 mg/dL Invalid Interpretation Code 80 - 115 mg/dL AO ADM SS Hematocrit (Bld) [Volume fraction] 34.1 % Invalid Interpretation Code 37.0 - 47.0 % AO Workflow SS Hemoglobin (Bld) [Mass/Vol] 11.2 G/dL Invalid Interpretation Code 12.0 - 16.0 G/dL AO Workflow SS Lymphocyte, Absolute 0.6 103/mcL Invalid Interpretation Code 0.8 - 3.9 10^3/mcL AO Workflow SS Lymphocytes/100 WBC (Bld) 6.7 % Invalid Interpretation Code 10.0 - 50.0 % AO Workflow SS MCH (RBC) [Entitic mass] 26.9 pg Invalid Interpretation Code 27.0 - 31.2 pg AO Workflow SS MCHC 32.9 G/dL Invalid Interpretation Code 33.0 - 37.0 G/dL AO Workflow SS MCV (RBC) [Entitic vol] 81.6 fL Invalid Interpretation Code 80.0 - 94.0 fL AO Workflow SS Monocyte, Absolute 0.5 103/mcL Invalid Interpretation Code 0.2 - 1.0 10^3/mcL AO Workflow SS Monocytes/100 WBC (Bld) 6.2 % Invalid Interpretation Code 1.7 - 13.0 % AO Workflow SS Neutrophil, Absolute 7.5 103/mcL Invalid Interpretation Code 2.9 - 6.2 10^3/mcL AO Workflow SS Neutrophils/100 WBC (Bld) 87.0 % Invalid Interpretation Code 37.0 - 80.0 % AO Workflow SS Platelet mean volume (Bld) [Entitic vol] 8.3 fL Invalid Interpretation Code 7.4 - 10.4 fL AO Workflow SS Platelets (Bld) [#/Vol] 220 103/mcL Invalid Interpretation Code 130 - 400 10^3/mcL AO Workflow SS Potassium [Moles/Vol] 5.5 mmol/L Invalid Interpretation Code 3.5 - 5.1 mmol/L AO ADM SS RBC (Bld) [#/Vol] 4.18 106/mcL Invalid Interpretation Code 4.20 - 5.40 10^6/mcL AO Workflow SS Sodium [Moles/Vol] 141 mmol/L Invalid Interpretation Code 136 - 145 mmol/L AO ADM SS Urea nitrogen [Mass/Vol] 10 mg/dL Invalid Interpretation Code 7 - 18 mg/dL AO ADM SS Urea nitrogen/Creatinine [Mass ratio] 14 ratio Invalid Interpretation Code 7 - 27 ratio AO ADM SS WBC (Bld) [#/Vol] 8.7 103/mcL Invalid Interpretation Code 4.6 - 10.8 10^3/mcL AO Workflow SS XR FLUORO 1-2 HRS TECH TIMEo n 06-12-2023 XR FLUORO 1-2 HRS TECH TIME ORIGINAL Images acquired, not reported on this accession number. Normal [facility] ([place]) Gel ABOon 06-11-2023 ABO/Rh Interp Positive Invalid Interpretation Code [facility] ([place]) Comment on above: Performed By: #### A NSG, ABOG ####[id number] [place], [place] [address] Gel ABSon 06-11-2023 Antibody Screen Gel Negative Normal [facility] ([place]) Comment on above: Performed By: #### A JOCELYNN ENGLISH ####[id number] [place], [place] [address] LABORATORYOrdered By: Hermilo Ford on 06-11-2023 ABO/Rh Interp Positive Invalid Interpretation Code AO BB SS Antibody Screen Gel Negative ABSC (06/11/23 8:47 AM) Invalid Interpretation Code AO BB SS No Panel Informationon 06-11 AFS Acid Fast Smear from Concentrated Specimen: Negative [facility] Culture Tissue No growth to date [facility] FUNSM No fungal elements observed by calcofluor white stain. [facility] GS 2+ White Blood Cells No organisms seen. [facility] AFS Acid Fast Smear from Concentrated Specimen: Negative [facility] Culture Tissue No growth to date [facility] FUNSM No fungal elements observed by calcofluor white stain. [facility] GS 2+ Polymorphonuclear cells No organisms seen. [facility] AFS Acid Fast Smear from Concentrated Specimen: Negative [facility] Culture Tissue No growth to date [facility] FUNSM No fungal elements observed by calcofluor white stain. [facility] GS 2+ White Blood Cells No organisms seen. [facility] XR HIP LEFT W/PELVIS 4 VIEWS on 06-11-2023 XR HIP LEFT W/PELVIS 4 VIEWS ORIGINAL EXAMINATION: 3 XRAY VIEWS OF THE LEFT HIP.06/11/2023 2:21 pm COMPARISON: None HISTORY: ORDERING SYSTEM PROVIDED HISTORY: Reason for Exam: Status Post Arthroplasty FINDINGS: The pelvis appears intact. Left hip arthroplasty is in near anatomic alignment. Expected periarticular and subcutaneous gas are noted. No acute fracture or dislocation. IMPRESSION: Expected postoperative findings of left hip arthroplasty. Interpreted by: James Baetty DO Preliminary Report By: James Beatty DO Electronically signed By James Beatty DO Dictated Date: 06/11/2023 2:45:21 PM Prelim Date: 06/11/2023 2:46:00 PM Sign Date: 06/11/2023 2:46:00 PM Ordering Provider: LAUREL MEDINA [facility] ([place]) XR CHEST 2 VIEWSon 3 XR CHEST 2 VIEWS ORIGINAL EXAMINATION: TWO XRAY VIEWS OF THE CHEST05/22/2023 2:16 pm COMPARISON: None HISTORY: ORDERING SYSTEM PROVIDED HISTORY: Reason for Exam: Pre-admission testing, URI 3 weeks ago. Long history of smoking FINDINGS: Heart and mediastinum: Cardiomediastinal silhouette is normal. Lungs and pleura: No consolidation or edema. No effusion or pneumothorax. Calcified granuloma in the left lower lobe. Bones: No acute bony abnormality. Degenerative spine. Mildly prominent costochondral calcifications. IMPRESSION: No acute cardiopulmonary process. I have personally reviewed the images of this examination and agree with the resident's findings and interpretation. Interpreted by: Fernando Mcgovern MD Preliminary Report By: Narendra Martini Electronically signed By Fernando Mcgovern MD Dictated Date: 05/23/2023 2:09:13 PM Prelim Date: 05/23/2023 4:28:47 PM Sign Date: 05/23/2023 4:28:47 PM Ordering Provider: LAUREL MEDINA [facility] ([place]) .Auto Diffon 05-22-2023 Basophil, Absolute 0.0 10 3/mcL Normal 0.0-0.2 [facility] ([place]) Comment on above: Performed By: #### A BOG, ADIFF, GFR, ANEU, CBC, BMP, ALB, ANSG ####[address] [place], [place] [address] Basophils/100 WBC (Bld) 0.6 % Normal 0.0-2.5 [facility] ([place]) Comment on above: Performed By: #### A BOG, ADIFF, GFR, ANEU, CBC, BMP, ALB, ANSG ####[address] [place], [place] [address] Eosinophil, Absolute 0.1 10 3/mcL Normal 0.0-0.4 [facility] ([place]) Comment on above: Performed By: #### A BOG, ADIFF, GFR, ANEU, CBC, BMP, ALB, ANSG ####Chance [address] [place], [place] [address] Eosinophils/100 WBC (Bld) 3.0 % Normal 0.0-7.0 [facility] ([place]) Comment on above: Performed By: #### A BOG, ADIFF, GFR, ANEU, CBC, BMP, ALB, ANSG ####Chance [address] [place], [place] [address] Lymphocyte, Absolute 0.9 10 3/mcL Normal 0.8-3.9 [facility] ([place]) Comment on above: Performed By: #### A BOG, ADIFF, GFR, ANEU, CBC, BMP, ALB, ANSG ####Chance [id number] [place], [place] [address] Lymphocytes/100 WBC (Bld) 20.7 % Normal 10.0-50.0 [facility] ([place]) Comment on above: Performed By: #### A BOG, ADIFF, GFR, ANEU, CBC, BMP, ALB, ANSG ####[address]ance [address] [place], [place] [address] Monocyte, Absolute 0.4 10 3/mcL Normal 0.2-1.0 [facility] ([place]) Comment on above: Performed By: #### A BOG, ADIFF, GFR, ANEU, CBC, BMP, ALB, ANSG ####[address]ance [id number] [place], [place] [address] Monocytes/100 WBC (Bld) 8.3 % Normal 1.7-13.0 [facility] ([place]) Comment on above: Performed By: #### A BOG, ADIFF, GFR, ANEU, CBC, BMP, ALB, ANSG ####Chance [address] [place], [place] [address] Neutrophils/100 WBC (Bld) 67.4 % Normal 37.0-80.0 [facility] ([place]) Comment on above: Performed By: #### A BOG, ADIFF, GFR, ANEU, CBC, BMP, ALB, ANSG ####Chance [address] [place], [place] [address] .GFRon 05-22-2023 GFR 108 ml/min/1.73sqm Normal [facility] ([place]) Comment on above: Result Comment: GFR Population mean for , Non- Americans Ages 20-29 = 116 mL/min/1.73 sq.m. Ages 30-39 = 107 mL/min/1.73 sq.m. Ages 40-49 = 99 mL/min/1.73 sq.m. Ages 50-59 = 93 mL/min/1.73 sq.m. Ages 60-69 = 85 mL/min/1.73 sq.m. Ages 70+ = 75 mL/min/1.73 sq.m. Chronic Kidney Disease: Less than 60 mL/min/1.73 square meters End Stage Renal Disease: Less than 15 mL/min/1.73 square meters Performed By: #### A BOG, ADIFF, GFR, ANEU, CBC, BMP, ALB, ANSG ####Chance [address] [place], [place] [address] GFR Non- 89 ml/min/1.73sqm Normal [facility] ([place]) Comment on above: Result Comment: GFR Population mean for , Non- Americans Ages 20-29 = 116 mL/min/1.73 sq.m. Ages 30-39 = 107 mL/min/1.73 sq.m. Ages 40-49 = 99 mL/min/1.73 sq.m. Ages 50-59 = 93 mL/min/1.73 sq.m. Ages 60-69 = 85 mL/min/1.73 sq.m. Ages 70+ = 75 mL/min/1.73 sq.m. Chronic Kidney Disease: Less than 60 mL/min/1.73 square meters End Stage Renal Disease: Less than 15 mL/min/1.73 square meters Performed By: #### A BOG, ADIFF, GFR, ANEU, CBC, BMP, ALB, ANSG ####[address] [place], [place] [address] .NEUABSon 05-22-2023 Neutrophil, Absolute 3.0 10 3/mcL Normal 2.9-6.2 [facility] ([place]) Comment on above: Performed By: #### A BOG, ADIFF, GFR, ANEU, CBC, BMP, ALB, ANSG ####[address]ance [address] [place], [place] [address] ALBon 05-22-2023 Albumin Level 4.3 G/dL Normal 3.4-4.8 [facility] ([place]) Comment on above: Performed By: #### A BOG, ADIFF, GFR, ANEU, CBC, BMP, ALB, ANSG ####[address]ance [address] [place], [place] [address] BMPon 05-22-2023 BUN/Creatinine Ratio 27 ratio Normal 7-27 [facility] ([place]) Comment on above: Performed By: #### A BOG, ADIFF, GFR, ANEU, CBC, BMP, ALB, ANSG ####Chance [address] [place], [place] [address] Calcium [Mass/Vol] 9.3 mg/dL Normal 8.4-10.2 [facility] ([place]) Comment on above: Performed By: #### A BOG, ADIFF, GFR, ANEU, CBC, BMP, ALB, ANSG ####[address] [place], [place] [address] Chloride [Moles/Vol] 104 mmol/L Normal 98-107 [facility] ([place]) Comment on above: Performed By: #### A BOG, ADIFF, GFR, ANEU, CBC, BMP, ALB, ANSG ####[address]ance [address] [place], [place] [address] CO2 [Moles/Vol] 28 mmol/L Normal 23-31 [facility] ([place]) Comment on above: Performed By: #### A BOG, ADIFF, GFR, ANEU, CBC, BMP, ALB, ANSG ####[address] [place], [place] [address] Creatinine [Mass/Vol] 0.67 mg/dL Normal 0.55-1.02 [facility] ([place]) Comment on above: Performed By: #### A BOG, ADIFF, GFR, ANEU, CBC, BMP, ALB, ANSG ####[address] [place], [place] [address] Electrolyte Balance 9.0 mEq/L Normal 4.0-15.0 [facility] ([place]) Comment on above: Performed By: #### A BOG, ADIFF, GFR, ANEU, CBC, BMP, ALB, ANSG ####[address] [place], [place] [address] Glucose [Mass/Vol] 90 mg/dL Normal 80-115 [facility] ([place]) Comment on above: Performed By: #### A BOG, ADIFF, GFR, ANEU, CBC, BMP, ALB, ANSG ####[address] [place], [place] [address] Potassium [Moles/Vol] 4.8 mmol/L Normal 3.5-5.1 [facility] ([place]) Comment on above: Performed By: #### A BOG, ADIFF, GFR, ANEU, CBC, BMP, ALB, ANSG ####[address]ance [address] [place], [place] [address] Sodium [Moles/Vol] 141 mmol/L Normal 136-145 [facility] ([place]) Comment on above: Performed By: #### A BOG, ADIFF, GFR, ANEU, CBC, BMP, ALB, ANSG ####[address] [place], [place] [address] Urea nitrogen [Mass/Vol] 18 mg/dL Normal 7-18 [facility] ([place]) Comment on above: Performed By: #### A BOG, ADIFF, GFR, ANEU, CBC, BMP, ALB, ANSG ####[address] [place], [place] [address] CBCon 05-22-2023 Erythrocyte distribution width (RBC) [Ratio] 15.7 % High 11.5-14.5 [facility] ([place]) Comment on above: Order Comment: Pre-A dmission Testing Performed By: #### A BOG, ADIFF, GFR, ANEU, CBC, BMP, ALB, ANSG ####[address] [place], [place] [address] Hematocrit (Bld) [Volume fraction] 40.6 % Normal 37.0-47.0 [facility] ([place]) Comment on above: Order Comment: Pre-A dmission Testing Performed By: #### A BOG, ADIFF, GFR, ANEU, CBC, BMP, ALB, ANSG ####[address] [place], [place] [address] Hgb 13.1 G/dL Normal 12.0-16.0 [facility] ([place]) Comment on above: Order Comment: Pre-A dmission Testing Performed By: #### A BOG, ADIFF, GFR, ANEU, CBC, BMP, ALB, ANSG ####[address] [place], [place] [address] MCH (RBC) [Entitic mass] 26.5 pg Low 27.0-31.2 [facility] ([place]) Comment on above: Order Comment: Pre-A dmission Testing Performed By: #### A BOG, ADIFF, GFR, ANEU, CBC, BMP, ALB, ANSG ####[address] [place], [place] [address] MCHC 32.2 G/dL Low 33.0-37.0 [facility] ([place]) Comment on above: Order Comment: Pre-A dmission Testing Performed By: #### A BOG, ADIFF, GFR, ANEU, CBC, BMP, ALB, ANSG ####[address] [place], [place] [address] MCV (RBC) [Entitic vol] 82.4 fL Normal 80.0-94.0 [facility] ([place]) Comment on above: Order Comment: Pre-A dmission Testing Performed By: #### A BOG, ADIFF, GFR, ANEU, CBC, BMP, ALB, ANSG ####[address] [place], [place] [address] Platelet 259 10 3/mcL Normal 130-400 [facility] ([place]) Comment on above: Order Comment: Pre-A dmission Testing Performed By: #### A BOG, ADIFF, GFR, ANEU, CBC, BMP, ALB, ANSG ####[address] [place], [place] [address] Platelet mean volume (Bld) [Entitic vol] 8.1 fL Normal 7.4-10.4 [facility] ([place]) Comment on above: Order Comment: Pre-A dmission Testing Performed By: #### A BOG, ADIFF, GFR, ANEU, CBC, BMP, ALB, ANSG ####[address] [place], [place] [address] RBC 4.92 10 6/mcL Normal 4.20-5.40 [facility] ([place]) Comment on above: Order Comment: Pre-A dmission Testing Performed By: #### A BOG, ADIFF, GFR, ANEU, CBC, BMP, ALB, ANSG ####[address] [place], [place] [address] WBC 4.4 10 3/mcL Low 4.6-10.8 [facility] ([place]) Comment on above: Order Comment: Pre-A dmission Testing Performed By: #### A BOG, ADIFF, GFR, ANEU, CBC, BMP, ALB, ANSG ####[address] [place], [place] [address] Gel ABOon 05-22-2023 ABO/Rh Interp Positive Invalid Interpretation Code [facility] ([place]) Comment on above: Performed By: #### A BOG, ADIFF, GFR, ANEU, CBC, BMP, ALB, ANSG ####[address] [place], [place] [address] Gel ABSon 05-22-2023 Antibody Screen Gel Negative Normal [facility] ([place]) Comment on above: Performed By: #### A BOG, ADIFF, GFR, ANEU, CBC, BMP, ALB, ANSG ####[address] [place], [place] [address] LABORATORYOrdered By: Marcia Butterfield on 05-22-2023 ABO/Rh Interp Positive Invalid Interpretation Code AO BB SS Antibody Screen Gel Negative ABSC (05/22/23 1:52 PM) Invalid Interpretation Code AO BB SS LABORATORYOrdered By: SYSTEM SYSTEM on 05-22-2023 Albumin BCP dye [Mass/Vol] 4.3 G/dL Invalid Interpretation Code 3.4 - 4.8 G/dL AO ADM SS Basophil, Absolute 0.0 103/mcL Invalid Interpretation Code 0.0 - 0.2 10^3/mcL AO Workflow SS Basophils/100 WBC (Bld) 0.6 % Invalid Interpretation Code 0.0 - 2.5 % AO Workflow SS Calcium [Mass/Vol] 9.3 mg/dL Invalid Interpretation Code 8.4 - 10.2 mg/dL AO ADM SS Chloride [Moles/Vol] 104 mmol/L Invalid Interpretation Code 98 - 107 mmol/L AO ADM SS CO2 [Moles/Vol] 28 mmol/L Invalid Interpretation Code 23 - 31 mmol/L AO ADM SS Creatinine [Mass/Vol] 0.67 mg/dL Invalid Interpretation Code 0.55 - 1.02 mg/dL AO ADM SS Electrolyte Balance 9.0 mEq/L Invalid Interpretation Code 4.0 - 15.0 mEq/L AO ADM SS Eosinophil, Absolute 0.1 103/mcL Invalid Interpretation Code 0.0 - 0.4 10^3/mcL AO Workflow SS Eosinophils/100 WBC (Bld) 3.0 % Invalid Interpretation Code 0.0 - 7.0 % AO Workflow SS Erythrocyte distribution width (RBC) [Ratio] 15.7 % Invalid Interpretation Code 11.5 - 14.5 % AO Workflow SS GFR/1.73 sq M.predicted among blacks MDRD (S/P/Bld) [Vol rate/Area] 108 ml/min/1.73sqm Invalid Interpretation Code AO Chemistry S Comment on above: Interpretive Data: GFR Population mean for , Non- Americans Ages 20-29 = 116 mL/min/1.73 sq.m. Ages 30-39 = 107 mL/min/1.73 sq.m. Ages 40-49 = 99 mL/min/1.73 sq.m. Ages 50-59 = 93 mL/min/1.73 sq.m. Ages 60-69 = 85 mL/min/1.73 sq.m. Ages 70+ = 75 mL/min/1.73 sq.m. Chronic Kidney Disease: Less than 60 mL/min/1.73 square meters End Stage Renal Disease: Less than 15 mL/min/1.73 square meters GFR/1.73 sq M.predicted among non-blacks MDRD (S/P/Bld) [Vol rate/Area] 89 ml/min/1.73sqm Invalid Interpretation Code AO Chemistry S Comment on above: Interpretive Data: GFR Population mean for , Non- Americans Ages 20-29 = 116 mL/min/1.73 sq.m. Ages 30-39 = 107 mL/min/1.73 sq.m. Ages 40-49 = 99 mL/min/1.73 sq.m. Ages 50-59 = 93 mL/min/1.73 sq.m. Ages 60-69 = 85 mL/min/1.73 sq.m. Ages 70+ = 75 mL/min/1.73 sq.m. Chronic Kidney Disease: Less than 60 mL/min/1.73 square meters End Stage Renal Disease: Less than 15 mL/min/1.73 square meters Glucose [Mass/Vol] 90 mg/dL Invalid Interpretation Code 80 - 115 mg/dL AO ADM SS Hematocrit (Bld) [Volume fraction] 40.6 % Invalid Interpretation Code 37.0 - 47.0 % AO Workflow SS Hemoglobin (Bld) [Mass/Vol] 13.1 G/dL Invalid Interpretation Code 12.0 - 16.0 G/dL AO Workflow SS Lymphocyte, Absolute 0.9 103/mcL Invalid Interpretation Code 0.8 - 3.9 10^3/mcL AO Workflow SS Lymphocytes/100 WBC (Bld) 20.7 % Invalid Interpretation Code 10.0 - 50.0 % AO Workflow SS MCH (RBC) [Entitic mass] 26.5 pg Invalid Interpretation Code 27.0 - 31.2 pg AO Workflow SS MCHC 32.2 G/dL Invalid Interpretation Code 33.0 - 37.0 G/dL AO Workflow SS MCV (RBC) [Entitic vol] 82.4 fL Invalid Interpretation Code 80.0 - 94.0 fL AO Workflow SS Monocyte, Absolute 0.4 103/mcL Invalid Interpretation Code 0.2 - 1.0 10^3/mcL AO Workflow SS Monocytes/100 WBC (Bld) 8.3 % Invalid Interpretation Code 1.7 - 13.0 % AO Workflow SS Neutrophil, Absolute 3.0 103/mcL Invalid Interpretation Code 2.9 - 6.2 10^3/mcL AO Workflow SS Neutrophils/100 WBC (Bld) 67.4 % Invalid Interpretation Code 37.0 - 80.0 % AO Workflow SS Platelet mean volume (Bld) [Entitic vol] 8.1 fL Invalid Interpretation Code 7.4 - 10.4 fL AO Workflow SS Platelets (Bld) [#/Vol] 259 103/mcL Invalid Interpretation Code 130 - 400 10^3/mcL AO Workflow SS Potassium [Moles/Vol] 4.8 mmol/L Invalid Interpretation Code 3.5 - 5.1 mmol/L AO ADM SS RBC (Bld) [#/Vol] 4.92 106/mcL Invalid Interpretation Code 4.20 - 5.40 10^6/mcL AO Workflow SS Sodium [Moles/Vol] 141 mmol/L Invalid Interpretation Code 136 - 145 mmol/L AO ADM SS Urea nitrogen [Mass/Vol] 18 mg/dL Invalid Interpretation Code 7 - 18 mg/dL AO ADM SS Urea nitrogen/Creatinine [Mass ratio] 27 ratio Invalid Interpretation Code 7 - 27 ratio AO ADM SS WBC (Bld) [#/Vol] 4.4 103/mcL Invalid Interpretation Code 4.6 - 10.8 10^3/mcL AO Workflow SS LABORATORYOrdered By: Kevin Hillman on 05-22-2023 MRSA DNA EDGAR+probe Ql (Unsp spec) Detected 1 *ABN* (05/22/23 1:52 PM) Invalid Interpretation Code Not Detected Auto Viro/Sero SS Comment on above: Result Comment: [place] [id number] MRSA PCR Int Staph aureus DNA detected by Real-Time Polymerase Chain Reaction (PCR). Organism viability can not be determined since free bacterial DNA may persist in the absence of viable organisms.As with all PCR based in vitro diagnostic tests, extremely low levels of target below the limit of detection of the assay may be detected, but results may not be reproducible, and the clinical significance unknown.Infection control will be notified. Invalid Interpretation Code Auto Viro/Sero SS MRSAPCRon 05-22-2023 MRSA (PCR) Detected Abnormal Not Detected [facility] ([place]) Comment on above: Result Comment: [place] s [id number] Performed By: #### M RSAPCR ####[address] [place] [id number] MRSA PCR Int Normal [facility] ([place]) Comment on above: Result Comment: Stap h aureus DNA detected by Real-Time Polymerase Chain Reaction (PCR). Organism viability can not be determined since free bacterial DNA may persist in the absence of viable organisms. As with all PCR based in vitro diagnostic tests, extremely low levels of target below the limit of detection of the assay may be detected, but results may not be reproducible, and the clinical significance unknown. Infection control will be notified. See Below Performed By: #### M RSAPCR ####[address] [place] [id number] Vital Signs Date Time Vital Sign Value Performing Clinician Mallory grimm 06-12-2023 12:02-0400 Body temperature 97.52 [degF] DR LAUREL MEDINA MD [facility] 06-12-2023 12:02-0400 Diastolic Blood Pressure Non-Invasive [address] LAUREL MEDINA MD [facility] 06-12-2023 12:02-0400 Heart rate 48 /min DR LAUREL MEDINA MD [facility] 06-12-2023 12:02-0400 Respiratory rate 16 /min DR LAUREL MEDINA MD [facility] 06-12-2023 12:02-0400 Systolic Blood Pressure Non-Invasive [address] LAUREL MEDINA MD [facility] 06-12-2023 06:15-0400 Body temperature 97.88 [degF] DR LAUREL MEDINA MD [facility] 06-12-2023 06:15-0400 Diastolic Blood Pressure Non-Invasive [address] LAUREL MEDINA MD [facility] 06-12-2023 06:15-0400 Heart rate 51 /min DR LAUREL MEDINA MD [facility] 06-12-2023 06:15-0400 Respiratory rate 16 /min DR LAUREL MEDINA MD [facility] 06-12-2023 06:15-0400 Systolic Blood Pressure Non-Invasive [address] LAUREL MEDINA MD [facility] 06-12-2023 04:36-0400 Body temperature 97.7 [degF] DR LAUREL MEDINA MD [facility] 06-12-2023 04:36-0400 Diastolic Blood Pressure Non-Invasive [address] LAUREL MEDINA MD [facility] 06-12-2023 04:36-0400 Heart rate 48 /min DR LAUREL MEDINA MD [facility] 06-12-2023 04:36-0400 Respiratory rate 16 /min DR LAUREL MEDINA MD [facility] 06-12-2023 04:36-0400 Systolic Blood Pressure Non-Invasive [address] LAUREL MEDINA MD [facility] 06-11-2023 23:37-0400 Heart rate 61 /min DR LAUREL MEDINA MD [facility] 06-11-2023 19:00-0400 Heart rate 62 /min DR LAUREL MEDINA MD [facility] 06-11-2023 15:23-0400 Heart rate 58 /min DR LAUREL MEDINA MD [facility] 06-11-2023 15:03-0400 Body height 167.[address] LAUREL MEDINA MD [facility] 06-11-2023 15:03-0400 Body weight 81.[address] LAUREL MEDINA MD [facility] 06-11-2023 15:03-0400 Body weight 29.12 kg/m2 DR LAUREL MEDINA MD [facility] 06-11-2023 13:52-0400 Body temperature 96.08 [degF] DR LAUREL MEDINA MD [facility] 06-11-2023 13:30-0400 Respiratory Rate - Anes 11 br/min DR LAUREL MEDINA MD [facility] 06-11-2023 13:25-0400 Respiratory Rate - Anes 10 br/min DR LAUREL MEDINA MD [facility] 06-11-2023 13:20-0400 Respiratory Rate - Anes 10 br/min DR LAUREL MEDINA MD [facility] 06-11-2023 08:35-0400 Blood Pressure Cuff Size DR LAUREL MEDINA MD [facility] 06-11-2023 08:35-[address] LAUREL MEDINA MD [facility] 06-11-2023 08:35-[address] LAUREL Leone [facility] 06-11-2023 08:35-0400 Body height 167.[address] LAUREL MEDINA MD [facility] 06-11-2023 08:35-0400 Body temperature 96.62 [degF] DR LAUREL MEDINA MD [facility] 06-11-2023 08:35-0400 Body weight 81.[address] LAUREL MEDINA MD [facility] 06-11-2023 08:35-0400 Body weight 29.12 kg/m2 DR LAUREL MEDINA MD [facility] 05-22-2023 13:16-0400 Blood Pressure Cuff Size DR LAUREL MEDINA MD [facility] 05-22-2023 13:16-[address] LAUREL MEDINA MD [facility] 05-22-2023 13:16-[address] LAUREL Leone [facility] 05-22-2023 13:16-0400 Body height 167.[address] LAUREL MEDINA MD [facility] 05-22-2023 13:16-0400 Body weight 79.[address] LAUREL MEDINA MD [facility] 05-22-2023 13:16-0400 Body weight 28.3 kg/m2 DR LAUREL MEDINA MD [facility] 05-22-2023 13:16-0400 Diastolic Blood Pressure Non-Invasive [address] LAUREL MEDINA MD [facility] 05-22-2023 13:16-0400 Heart rate 59 /min DR LAUREL MEDINA MD [facility] 05-22-2023 13:16-0400 Systolic Blood Pressure Non-Invasive [address] LAUREL MEDINA MD [facility] Encounters Encounter Date Encounter Type Care Provider Facility Start: 04-30-2025 End: 04-30-2025 ambulatory CHINEDU COHEN [facility] Start: 04-12-2025 Encounter for gynecological examination (general) (routine) [facility]: 02-02-[facility]25 ambulatory KYUNG COHEN [facility] Start: 01-06-2025 End: 01-06-2025 ambulatory [facility] Start: 10-19-2024 End: 10-19-2024 ambulatory [facility] Facility[facility] Start: 08-19-2024 End: 08-19-2024 ambulatory KYUNG COHEN [facility] Start: 07-07-2024 End: 07-07-2024 ambulatory [facility] Start: 06-11-2023 End: 06-12-2023 Evaluation and management of inpatient JOHN COLLAZO [employer] Facility:[facility] Start: 06-11-2023 End: 06-12-2023 Evaluation and management of inpatient DR LAUREL MEDINA MD [facility] Start: 05-22-2023 End: 05-23-[address] LAUREL MEDINA MD Facility:[facility] Start: 05-22-2023 End: 05-22-[address] LAUREL MEDINA MD [facility] Procedures Date Procedure Procedure Detail Performing Clinician Start: 06-11-2023 Revision of left tot al hip arthroplasty DR LAUREL MEDINA MD Hysterectomy DR LAUREL Fisher MD Index finger structu re (body structure) DR LAUREL MEDINA MD Comment on above: RIGHT Laminectomy DR LAUREL Fisher MD Comment on above: L5-S1 Laparotomy DR LAUREL Fisher MD Comment on above: X3 Open reduction of fr acture with internal fixation DR LAUREL MEDINA MD Comment on above: LEFT TIB/FIB Operation on facial bone DR LAUREL MEDINA MD Repair of musculoten dinous cuff of shoulder DR LAUREL MEDINA MD Comment on above: LEFT Total replacement of hip DR LAUREL MEDINA MD Payers Date Payer Category Payer Private Health Insurance [id number] 2024 Medicare [id number] 2024 Self-pay 2023 Unknown [id number] 1959 Unknown [id number] 2.16.8 [id number] 1959 Unknown [id number] 2.16.8 [id number] 1959 Unknown [id number] 2.16.8 [id number] 1959 Unknown [id number] 2.16.8 [id number] 1959 Unknown [id number] 2.16.8 [id number] 1959 Unknown [id number] 2.16.8 [id number] 1959 Unknown [id number] 2.16.8 [id number] Unknown [id number] 2.16.8 [id number] Social History Date Type Detail Facility Start: 05-22-2023 Tobacco smoking status Never s moked tobacco (finding) [facility] Sex Assigned At Sex [facility] Functional Status Date Assessment Result Facility 06-12-2023 Functional Status Front wheeled walker [facility] 06-12-2023 Functional Status 3 [facility] 06-12-2023 Functional Status Door open, Room check performed [facility] 06-12-2023 Functional Status [facility] 06-11-2023 Functional Status [facility] 06-11-2023 Functional Status [facility] 06-11-2023 Functional Status [facility] 06-11-2023 Functional Status [facility] 06-11-2023 Functional Status Single level home [facility] 06-11-2023 Functional Status ice chips and sips take n [facility]-11-2023 [facility] Status Sensory Deficits None A [facility] Mental Status Date Assessment Result Facility 06-12-2023 Mental Status Oriented x 4 [facility] 06-12-2023 Mental Status [facility] 06-11-2023 Mental Status [facility] 06-11-2023 Mental Status [facility] Clinical Notes 05-18-2023 to 08-08-2023 Note Date & Type Note Facility 08-08-2023 Note . MICRO - Microbiology PROCEDURE: Acid Fast Bacilli Culture w Stain if Ind [*1] SOURCE: Tissue BODY SITE: Hip L COLLECTED DATE/TIME: 06/11/2023 12:05 EDT RECEIVED DATE/TIME: 06/11/2023 21:14 EDT START DATE/TIME: 06/11/2023 21:14 EDT FREE TEXT SOURCE: 1. ANTERIOR SYNOVIUM FINAL REPORTS Final Report [] Verified Date/Time/Personnel: 08/08/2023 15:42 EDT No growth of Acid Fast Bacilli PRELIMINARY REPORTS Preliminary Report [] Verified Date/Time/Personnel: 07/25/2023 09:54 EDT No growth of Acid Fast Bacilli to date. Final report to follow at 8 weeks. STAINS AFS [] Verified Date/Time/Personnel: 06/12/2023 13:04 EDT Acid Fast Smear from Concentrated Specimen: Negative Performing Locations *1: This test was performed at: [address], [id number]- , [facility] ([place]) 08-08-2023 Note . MICRO - Microbiology PROCEDURE: Acid Fast Bacilli Culture w Stain if Ind [*1] SOURCE: Tissue BODY SITE: Hip L COLLECTED DATE/TIME: 06/11/2023 12:11 EDT RECEIVED DATE/TIME: 06/11/2023 21:14 EDT START DATE/TIME: 06/11/2023 21:14 EDT FREE TEXT SOURCE: 3. ACETABULAR MEMBRANE FINAL REPORTS Final Report [] Verified Date/Time/Personnel: 08/08/2023 15:42 EDT No growth of Acid Fast Bacilli PRELIMINARY REPORTS Preliminary Report [] Verified Date/Time/Personnel: 07/25/2023 09:54 EDT No growth of Acid Fast Bacilli to date. Final report to follow at 8 weeks. STAINS AFS [] Verified Date/Time/Personnel: 06/12/2023 13:04 EDT Acid Fast Smear from Concentrated Specimen: Negative Performing Locations *1: This test was performed at: [address], [facility]- , [facility] ([place]) 08-08-2023 Note . MICRO - Microbiology PROCEDURE: Acid Fast Bacilli Culture w Stain if Ind [*1] SOURCE: Tissue BODY SITE: Hip L COLLECTED DATE/TIME: 06/11/2023 12:26 EDT RECEIVED DATE/TIME: 06/11/2023 21:15 EDT START DATE/TIME: 06/11/2023 21:15 EDT FREE TEXT SOURCE: 2. FEMORAL HEAD MEMBRANE FINAL REPORTS Final Report [] Verified Date/Time/Personnel: 08/08/2023 15:42 EDT No growth of Acid Fast Bacilli PRELIMINARY REPORTS Preliminary Report [] Verified Date/Time/Personnel: 07/25/2023 09:54 EDT No growth of Acid Fast Bacilli to date. Final report to follow at 8 weeks. STAINS AFS [] Verified Date/Time/Personnel: 06/12/2023 13:04 EDT Acid Fast Smear from Concentrated Specimen: Negative Performing Locations *1: This test was performed at: [address], [facility]- , [facility] ([place]) 07-09-2023 Note . MICRO - Microbiology PROCEDURE: Fungal Culture with Stain if Ind [*1] SOURCE: Tissue BODY SITE: Hip L COLLECTED DATE/TIME: 06/11/2023 12:05 EDT RECEIVED DATE/TIME: 06/11/2023 21:14 EDT START DATE/TIME: 06/11/2023 21:14 EDT FREE TEXT SOURCE: 1. ANTERIOR SYNOVIUM FINAL REPORTS Final Report [] Verified Date/Time/Personnel: 07/09/2023 08:46 EDT No fungus isolated in 4 weeks. PRELIMINARY REPORTS Preliminary Report [] Verified Date/Time/Personnel: 06/14/2023 07:36 EDT No fungus isolated to date. Final report to follow. STAINS FUNSM [] Verified Date/Time/Personnel: 06/12/2023 13:06 EDT No fungal elements observed by calcofluor white stain. Performing Locations *1: This test was performed at: [address], [facility]- , [facility] ([place]) 07-09-2023 Note . MICRO - Microbiology PROCEDURE: Fungal Culture with Stain if Ind [*1] SOURCE: Tissue BODY SITE: Hip L COLLECTED DATE/TIME: 06/11/2023 12:26 EDT RECEIVED DATE/TIME: 06/11/2023 21:15 EDT START DATE/TIME: 06/11/2023 21:15 EDT FREE TEXT SOURCE: 2. FEMORAL HEAD MEMBRANE FINAL REPORTS Final Report [] Verified Date/Time/Personnel: 07/09/2023 08:46 EDT No fungus isolated in 4 weeks. PRELIMINARY REPORTS Preliminary Report [] Verified Date/Time/Personnel: 06/14/2023 07:36 EDT No fungus isolated to date. Final report to follow. STAINS FUNSM [] Verified Date/Time/Personnel: 06/12/2023 13:06 EDT No fungal elements observed by calcofluor white stain. Performing Locations *1: This test was performed at: [address], [facility] , [facility] ([place]) 07-09-2023 Note . MICRO - Microbiology PROCEDURE: Fungal Culture with Stain if Ind [*1] SOURCE: Tissue BODY SITE: Hip L COLLECTED DATE/TIME: 06/11/2023 12:11 EDT RECEIVED DATE/TIME: 06/11/2023 21:14 EDT START DATE/TIME: 06/11/2023 21:14 EDT FREE TEXT SOURCE: 3. ACETABULAR MEMBRANE FINAL REPORTS Final Report [] Verified Date/Time/Personnel: 07/09/2023 08:46 EDT No fungus isolated in 4 weeks. PRELIMINARY REPORTS Preliminary Report [] Verified Date/Time/Personnel: 06/14/2023 07:36 EDT No fungus isolated to date. Final report to follow. STAINS FUNSM [] Verified Date/Time/Personnel: 06/12/2023 13:06 EDT No fungal elements observed by calcofluor white stain. Performing Locations *1: This test was performed at: [address], [facility]- , [facility] ([place]) 06-18-2023 Note . MICRO - Microbiology PROCEDURE: Culture Tissue [*1] SOURCE: Tissue BODY SITE: Hip L COLLECTED DATE/TIME: 06/11/2023 12:26 EDT RECEIVED DATE/TIME: 06/11/2023 21:15 EDT START DATE/TIME: 06/11/2023 21:15 EDT FREE TEXT SOURCE: 3. ACETABULAR MEMBRANE FINAL REPORTS Final Report [] Verified Date/Time/Personnel: 06/18/2023 07:13 EDT No aerobes or anaerobes isolated at 7 days. PRELIMINARY REPORTS Preliminary Report [] Verified Date/Time/Personnel: 06/12/2023 11:44 EDT No growth to date STAINS GS [] Verified Date/Time/Personnel: 06/11/2023 23:11 EDT 2+ White Blood Cells No organisms seen. Performing Locations *1: This test was performed at: [address], [facility]- , [facility] ([place]) 06-18-2023 Note . MICRO - Microbiology PROCEDURE: Culture Tissue [*1] SOURCE: Tissue BODY SITE: Hip L COLLECTED DATE/TIME: 06/11/2023 12:11 EDT RECEIVED DATE/TIME: 06/11/2023 21:14 EDT START DATE/TIME: 06/11/2023 21:14 EDT FREE TEXT SOURCE: 1. ANTERIOR SYNOVIUM FINAL REPORTS Final Report [] Verified Date/Time/Personnel: 06/18/2023 07:11 EDT No aerobes or anaerobes isolated at 7 days. PRELIMINARY REPORTS Preliminary Report [] Verified Date/Time/Personnel: 06/12/2023 11:43 EDT No growth to date STAINS GS [] Verified Date/Time/Personnel: 06/11/2023 23:10 EDT 2+ Polymorphonuclear cells No organisms seen. Performing Locations *1: This test was performed at: [address], [facility]- , [facility] ([place]) 06-18-2023 Note . MICRO - Microbiology PROCEDURE: Culture Tissue [*1] SOURCE: Tissue BODY SITE: Hip L COLLECTED DATE/TIME: 06/11/2023 12:05 EDT RECEIVED DATE/TIME: 06/11/2023 21:14 EDT START DATE/TIME: 06/11/2023 21:14 EDT FREE TEXT SOURCE: 2. FEMORAL HEAD MEMBRANE FINAL REPORTS Final Report [] Verified Date/Time/Personnel: 06/18/2023 07:11 EDT No aerobes or anaerobes isolated at 7 days. PRELIMINARY REPORTS Preliminary Report [] Verified Date/Time/Personnel: 06/12/2023 11:43 EDT No growth to date STAINS GS [] Verified Date/Time/Personnel: 06/11/2023 23:13 EDT 2+ White Blood Cells No organisms seen. Performing Locations *1: This test was performed at: , [address] [place] [address], [id number] , [facility] ([place]) 06-12-2023 Note Discharge Instructions Thank you for allowing [facility] to assist you with your healthcare needs. The following is important discharge information regarding your hospital visit. Your Care Team Dr Medina Your Diagnosis Bradycardia History of revision of total replacement of left hip joint HTN (hypertension) Hyperkalemia Osteoarthritis Rheumatoid arthritis What to do next Follow Up Appointments Follow Up with RUTH LUCAS PA-C, Orthopedic When 06/24/2023 09:45 AM EDT Why: This is your post-op appointment. Follow-up as scheduled. Where: [facility] [address] [place] [id number]- Follow Up with [facility] When 06/14/2023 09:00 AM EDT Why: This is your first physical therapy appointment. Follow-up as scheduled. Where: [address] [place] [phone] The Following Activity and Diet Have Been Ordered for You Diet: No changes were made to your diet. Activity: Weight bearing as tolerated. The Following Treatments Have Been Ordered for You Discharge Labs No qualifying data available. Discharge Radiology No qualifying data available. Other Therapies No qualifying data available. Post Acute Orders No qualifying data available. Allergies No Known Medication Allergies Medications Please ask your primary doctor or pharmacist before taking any other medication not listed, including over the counter drugs, herbal medications, vitamins and or supplements as they may interact with your home medications. What How Much When Why Instructions Last Dose New acetaminophen (acetaminophen 500 mg oral tablet) 2 tab(s) by mouth Three (3) times a day as needed for as needed for pain Duration: 14 Days not to exceed 3000 mg/ day Pickup at [facility] [id number] 8/9/23 at 12n New aspirin (aspirin 81 mg oral delayed release tablet) 1 tab(s) by mouth Two (2) times a day Duration: 30 Days Take 81 mg aspirin twice daily with food for 4 weeks postoperatively for DVT prophylaxis. Pickup at [facility] 1724 06/12/23 at 0809 New docusate-senna (Senokot S 50 mg-8.6 mg oral tablet) 2 tab(s) by mouth Two (2) times a day Duration: 3 Days Take until first bowel movement, then as needed Pickup at [facility] 1724 06/12/23 at 0809 New doxycycline (doxycycline hyclate 100 mg oral capsule) 1 cap by mouth Every 12 hours Duration: 14 Days Pickup at [facility] 172 06/12/23 at 0809 New meloxicam (Mobic 7.5 mg oral tablet) 1 tab(s) by mouth Twice daily with meals Do not take any other nonsteroidal anti-inflammatories while on meloxicam/ Mobic Pickup at [facility] 1724 start tomorrow New oxyCODONE (oxyCODONE 5 mg oral tablet ( IMMEDIATE release )) See instructions History of revision of total replacement of left hip joint 1-2 tab(s) Oral q4h Pickup at [facility] 1724 06/12/23 at 0809 Unchanged amLODIPine (amLODIPine 2.5 mg oral tablet) TAKE 1 TABLET BY MOUTH ONCE DAILY 06/12/23 at 0809 Unchanged cholecalciferol (Vitamin D3 25 mcg (1000 intl units) oral tablet) 1 tab(s) by mouth Once a day none today Unchanged hydroxychloroquine (Plaquenil 200 mg oral tablet) 2 tab(s) by mouth Once a day 06/12/23 at 0809 Unchanged pantoprazole (pantoprazole 20 mg oral enteric coated tablet) 1 tab(s) by mouth Once a day 06/12/23 at 0545 Unchanged sertraline (Zoloft 25 mg oral tablet) 1 tab(s) by mouth Every day 06/12/23 at 0809 Pharmacy Information [facility]: [address] [place], [place] [id number] [phone] Please take this list to your next doctor s visit. Bring all medications you take, including over the counter medications, herbals and other supplements with you to your doctor s visit. Patients and families are reminded to discard old lists and to update any records with all medication providers or retail pharmacies. Education Materials [facility] Post-operative Instructions PLEASE FOLLOW [facility] POST-OP INSTRUCTIONS GIVEN WATCH FOR SIGNS OF INFECTION: call the office ([phone]) if experencing any of the following: (Usually appears 36-48 hours after surgery) Increased temperature (101 degrees Fahrenheit or higher) Redness or swelling Increased uncontrolled pain Foul odor or drainage Calf discomfort Significant swelling Or if having any chest pain, shortness of breath, or difficulty breathing or swallowing call the office or go the nearest Emergency Room. If you have any questions, please call your doctor at the number listed on your follow up instructions. Form: 338A (63804) R: 03/10 Additional Information VACCINATE! IT SAVES LIVES! Members of the community who have not yet received the COVID-19 vaccine and would like to receive it can visit one of [facility] vaccine clinics. There are many vaccine clinic locations within the [facility]. For locations and available times, please visit [email or web address].o hio.gov/. It is important to note that some COVID mobile vaccine clinics are held outdoors and may be canceled in rainy or stormy conditions. To learn more about pediatric vaccinations (ages 5-11), we invite you to visit the [facility] webpage. [email or web address] [email or web address] To learn more about the COVID-19 vaccine, we invite you to visit the CDC website for a list of frequently asked questions.https://www.cdc.gov/co ronavirus/2019-ncov/vaccines/faq .html [facility] Patient [facility] Access Instructions: Stay connected with your healthcare team and access your personal medical information anytime with the [facility] Patient Portal. Please follow the directions below to create your [facility] account: 1.Access the email account you provided upon registration to the hospital/physician office.2.Look for an invitation email from .3.Open the email and access the invitation link: Accept Invitation to [facility].4.Fill in the required casper to create your account. To access your account, visit [email or web address]. Click the blue button labeled Access Patient Portal and then log in with the username and password that you created in the steps above. You will be able to view your test results, lab results, a summary of your visits, upcoming appointments and more. There is also a convenient messaging option where you can send secure messages to your provider. In addition, you will have the ability to download any documents or summaries to your computer and/or send the information securely to a physician. Remember that your healthcare information is confidential, so carefully consider who you will allow to register on the [facility] Patient Portal for access to your information. You can also access the [facility] Patient Portal on the [facility] christine. Simply click on Patient Portal and then log into your account. If you would like to receive a full copy of your medical records, please contact the Medical Records Department by calling [phone], Saturday through Saturday between 8 a.m. and 4:30 p.m. HOW TO SAFELY DISPOSE OF PRESCRIPTION MEDICATIONS Please use one of the following methods to safely dispose of your unused medications. 1.Use a drug disposal kit: the drug disposal pouch allows you to safely discard your old and unused drugs. Ask your nurse to give you one when you are discharged.2.Visit a local take-back location: Many local pharmacies and police departments have programs that collect old and unwanted prescription drugs. Call your local pharmacy or go to http://FedBid.Auctions by Wallace/[email or web address] to find one close to you.3.Make use of household items: Use cat litter or old coffee grounds to dispose medications if other options are not available. Mix your drugs with these household products, seal them in an airtight container and throw it into the garbage. Call [facility]: [phone] to be sure your drugs can be disposed of in this way. Some medicines may require a different approach.4.Never flush your medications down the toilet. IF YOU HAVE BEEN PRESCRIBED AN OPIOID FOR PAIN If you have been prescribed an opioid (such as hydrocodone, oxycodone or morphine), it is critical to understand the possible side effects and risks of opioid pain medications. Even when taken as directed, opioids can have several side effects including: Tolerance, meaning you might need to take more of a medication for the same pain relief. Nausea, vomiting and/or constipation. Sleepiness, dizziness, dry mouth, confusion, depression or itching. Physical dependence, meaning you have withdrawal symptoms when a medication is stopped, can develop within a few days. KNOW YOUR RESPONSIBILITIES It is important to know exactly how much and how often to take the opioid pain medications you are prescribed. Never take opioids in higher amounts or more often than prescribed. Do not combine opioids with alcohol or other drugs that cause drowsiness, such as benzodiazepines, also known as benzos, including diazepam and alprazolam, muscle relaxants or sleep aids. Never sell or share prescription opioids. This is illegal. Store opioids in a secure place and out of reach of others (including children, family, friends and visitors). The last page of this document has been signed and retained as a CHART COPY. Signatures Patient Education Materials 5 - [facility] Post-op Instruction 06/2017 (00539) Medication Leaflets My discharge plan and instructions have been reviewed and explained to me and I,ABBY DE LOS SANTOS understand my current condition and have read and understand these discharge instructions. I have received a written copy of the plan/instructions. If I have questions, I am aware that I should contact my doctor. Patient/Director Of Primary Care Signature: Date/Time: Relationship to Patient: Witness Name/Signature: Date/Time: [facility] 06-12-2023 Hospital Discharg e instructions Patient Education 06/12/2023 07:36:03 5 - [facility] Post-op Instruction 06/2017 (35192) [facility] Post-operative Instructions PLEASE FOLLOW [facility] POST-OP INSTRUCTIONS GIVEN WATCH FOR SIGNS OF INFECTION: call the office ([phone]) if experencing any of the following: (Usually appears 36-48 hours after surgery) Increased temperature (101 degrees Fahrenheit or higher) Redness or swelling Increased uncontrolled pain Foul odor or drainage Calf discomfort Significant swelling Or if having any chest pain, shortness of breath, or difficulty breathing or swallowing call the office or go the nearest Emergency Room. If you have any questions, please call your doctor at the number listed on your follow up instructions. Form: 338A (55408) R: 03/10 Follow Up Care 05/20/2023 12:40:04 With:[facility] Address: [address] [place] [phone] When:06/14/2023 09:00:00 Comments:This is your first physical therapy appointment. Follow-up as scheduled. With:RUTH LUCAS PA-C, Orthopedic Address: [facility] [address] [place] [phone]- When:06/24/2023 09:45:00 Comments:This is your post-op appointment. Follow-up as scheduled. [facility] 06-12-2023 Note Date of Service June 12, 2023 Subjective The patient was sitting in bed upon examination. Patient denies any chest pain, shortness of breath, dizziness, lightheadedness, nausea or vomiting, or calf pain. No adverse overnight events. Pain has been controlled on medications. Patient overall is doing very well this morning. She has no significant complaints. Her pain has been well-controlled. She is only required 1 oxycodone so far. She does complain of some thigh soreness. She had a slight increase in her potassium but is currently asymptomatic on clinical exam. Objective Vitals and Measurements T: 36.5 C (Oral) TMIN: 35.6 C (Temporal Artery) TMAX: 36.5 C (Oral) HR: 48(Apical) RR: 16 BP: 128/68 SpO2: 95% HT: 167.6 cm WT: 81.8 kg BMI: 29.12 Intake and Output 7AM Yesterday to 7AM Today Intake and Output (Last 24 hours) Intake Administration Information 1914. Supplement Intake 240.00 Output Intra-Op EBL 250.00 Urine Count 3.00 Total Summary Total Intake 2155.85 Total Output 250.00 Fluid Balance 1905.85 Physical Exam Vital signs stable, afebrile. Currently on room air in no distress. She did require CPAP overnight SCDs and YOLI hose are in place bilaterally Left hip is soft and supple Patient is able to plantarflex and dorsiflex actively Sensation is intact to saphenous, sural, superficial and deep peroneal, and tibial distribution Dressing is clean dry and intact Negative signs and symptoms of DVT, negative Homans bilaterally Weight Dosing Weight: 81.8 kg (06/11/23) Dosing Weight: 81.8 kg (06/11/23) Medications Medications (25) Active Scheduled: (15) acetaminophen 500 mg Tablet 1,000 mg 2 tab(s), Oral, q6h amLODIPine 5 mg tablet 2.5 mg 0.5 tab(s), Oral, qDay aspirin 81 mg EC 81 mg 1 tab(s), Oral, BIDM bisacodyl 5 mg EC tablet 10 mg 2 tab(s), Oral, Once docusate sodium 100 mg Capsule 100 mg 1 cap(s), Oral, BID docusate-senna (Senokot S) 50 mg-8.6 mg Tablet 2 tab(s), Oral, BID doxycycline hyclate 100 mg Capsule 100 mg 1 cap(s), Oral, q12h famotidine 20 mg tablet 20 mg 1 tab(s), Oral, qDay hydroxychloroquine 200 mg tablet 400 mg 2 tab(s), Oral, qDay magnesium hydroxide 8% Suspension 30 mL UD 30 mL, Oral, Daily meloxicam 7.5 mg tablet 7.5 mg 1 tab(s), Oral, BIDM multivitamin (Myadec) with minerals Therapeutic Multiple Vitamins with Minerals Tablet 1 tab(s), Oral, qDayM ondansetron 2 mg/ 1 mL 2 mL INJ 4 mg 2 mL, IV Push, q8h pantoprazole 20 mg EC tablet 20 mg 1 tab(s), Oral, qDay sertraline 50 mg tablet 25 mg 0.5 tab(s), Oral, Daily Continuous: (0) PRN: (10) acetaminophen 325 mg Tablet 650 mg 2 tab(s), Oral, q4h diphenhydramine 25 mg tablet 25 mg 1 tab(s), Oral, q6h diphenhyDRAMINE 50 mg/mL (1 mL) INJ 25 mg 0.5 mL, IV Push, q6h ketorolac 30 mg/mL (1 mL) vial 15 mg 0.5 mL, IV Push, q6h morphine 2 mg/mL 1 mL syringe 2 mg 1 mL, IV Push, q1h ondansetron 2 mg/ 1 mL 2 mL INJ 4 mg 2 mL, IV Push, q8h oxycodone 5 mg tablet (immediate release) 5 mg 1 tab(s), Oral, q4h oxycodone 5 mg tablet (immediate release) 10 mg 2 tab(s), Oral, q4h prochlorperazine 10 mg/2 mL vial 5 mg 1 mL, IV Push, q6h sodium biphosphate-sodium phosphate 19 gm-7 gm Enema 133 mL, Rectal, qDay Lab Results 06/12 05:21 WBC: 8.7 Hgb: 11.2 L Hct: 34.1 L Platelet: 220 Neutrophil %: 87.0 H Glucose Level: 111 Sodium Level: 141 Potassium Level: 5.5 H BUN: 10 Creatinine Lvl (s): 0.69 EKG No qualifying data available. Assessment/Plan HTN (hypertension) Osteoarthritis Rheumatoid arthritis 1. Status post left revision total hip arthroplasty involving femoral and acetabular component postop day #1 2. Continue pain medications: Tylenol, meloxicam, oxycodone. Do not take any other nonsteroidal anti-inflammatories while on meloxicam/Mobic 3. DVT prophylaxis: Take 81 mg aspirin twice daily with food for 4 weeks postoperatively for DVT prophylaxis. 4. Physical therapy: Weightbearing as tolerated with walker 5. H & H: 11.2/34.1, asymptomatic. Postoperative anemia from surgery without intraoperative complications. At this time there is no need for treatment. 6. Continue antibiotics while following cultures: Patient will continue with doxycycline for 2 weeks postoperatively while following cultures. Microbiology results were reviewed and there is currently been no growth and no organisms seen. I discussed with the patient potential side effects with the doxycycline including hypersensitivity to the sunlight and must take appropriate precautions. Also recommended probiotic while taking the antibiotic for 2 weeks postoperatively. Patient voiced understanding and agreement. 7. Encouraged incentive spirometry 8. Continue postoperative medical management per medicine: Patient did have slight increase in her potassium and currently is 5.5. At preop potassium was 4.8. She is currently asymptomatic. I would appreciate recommendations from medicine at this time for discharge planning. 9. Disposition: Orthopedically patient is doing well this morning. Her pain has been well-controlled. Plan will be for possible discharge home this afternoon as long as she has cleared by medicine, pain is well-controlled, and she tolerates physical therapy. We discussed anterior hip precautions. She also inquired about driving. Explained to the patient she can begin driving once she has stopped all narcotics and she can walk 100 feet without the use of cane or walker. She would like her medications E scribed to [facility] in [facility]. She has outpatient physical therapy established. She will follow-up her postoperative instructions. I did explain to her that we will continue to follow the microbiology specimens and if there are any changes we will contact her if she has been discharged from the hospital. Otherwise upon discharge if she does have any complications she will contact our office. I have reviewed the [place] Automated Rx Reporting System (OARRS) report for this patient for refill pattern and other prescriber involvement as part of the appropriate surveillance for the provision of acute and chronic controlled medications. The report was requested and reviewed on the date of this entry, and was considered in the prescribing process This dictation was created using voice recognition software. Phonetic and/or grammatical errors may exist. Digitally Signed by RUTH LUCAS PA-C on 06/12/2023 07:35 AM [facility] 06-11-2023 Note ORIGINAL EXAMINATION: 3 XRAY VIEWS OF THE LEFT HIP.06/11/2023 2:21 pm COMPARISON: None HISTORY: ORDERING SYSTEM PROVIDED HISTORY: Reason for Exam: Status Post Arthroplasty FINDINGS: The pelvis appears intact. Left hip arthroplasty is in near anatomic alignment. Expected periarticular and subcutaneous gas are noted. No acute fracture or dislocation. IMPRESSION: Expected postoperative findings of left hip arthroplasty. Interpreted by: James Beatty DO Preliminary Report By: James Beatty DO Electronically signed By James Beatty DO Dictated Date: 06/11/2023 2:45:21 PM Prelim Date: 06/11/2023 2:46:00 PM Sign Date: 06/11/2023 2:46:00 PM Ordering Provider: LAUREL MEDINA [facility] 06-11-2023 Note ORIGINAL Images acquired, not reported on this accession number. [facility] 06-11-2023 Anesthesiology Consult note Patient: ABBY DE LOS SANTOS Age: 62 years Sex: Female : 1960 Associated Diagnoses: None Author: FRANCINE OCASIO Preoperative Information Time of last food or liquid consumption: 06/11/2023 00:00:00 Anesthesia history Patient's history: negative. Family's history: negative. Review of Systems Ear/Nose/Mouth/Throat: Negative. Respiratory: Sleep apnea. Cardiovascular: Negative. Gastrointestinal: Reflux, obese. Genitourinary: Negative. Endocrine: Negative. Musculoskeletal: OA. Integumentary: Negative. Neurologic: Negative. Health Status Allergies: Allergic Reactions (Selected) No Known Medication Allergies, Allergies (1) ActiveReaction No Known Medication AllergiesNone Documented Current medications: (Selected) Inpatient Medications Ordered Betadine 10% topical solution: 17.5 mL, mL/hr, Topical (INT), PREOP pharm Decadron: 10 mg, 1 mL, IV Push, AsDirected LR 1,000 mL: 20 mL/hr, Intravenous, Stop: 06/11/23 23:59:00 EDT Naropin 100 mg + Toradol 15 mg + EPINEPHrine 1 mg/mL injectable solution 0.3 mg + morphine 2.5 mg...: 100 mg, 20 mL, mL/hr, Other, PREOP pharm Naropin 100 mg + Toradol 15 mg + EPINEPHrine 1 mg/mL injectable solution 0.3 mg + morphine 2.5 mg...: 100 mg, 20 mL, mL/hr, Other, PREOP pharm ceFAZolin: 2 gram(s), 200 mL/hr, IV Piggyback, PREOP pharm heparin 5000 units/mL injection: 30,000 unit(s), 6 mL, 0 mL/hr, Miscellaneous, PREOP pharm tranexamic acid 1 g / 100 mL 0.7% NaCl PMX: 1 gram(s), 100 mL, 300 mL/hr, IV Piggyback, AsDirected tranexamic acid 1 g / 100 mL 0.7% NaCl PMX: 1 gram(s), 100 mL, 300 mL/hr, IV Piggyback, AsDirected Documented Medications Documented Plaquenil 200 mg oral tablet: 400 mg, 2 tab(s), Oral, qDay, 180 tab(s), 0 Refill(s) Vitamin D3 25 mcg (1000 intl units) oral tablet: 25 mcg, 1 tab(s), Oral, qDay, 30 tab(s), 0 Refill(s) Zoloft 25 mg oral tablet: 25 mg, 1 tab(s), Oral, Daily, 90 tab(s), 0 Refill(s) amLODIPine 2.5 mg oral tablet: TAKE 1 TABLET BY MOUTH ONCE DAILY pantoprazole 20 mg oral enteric coated tablet: 20 mg, 1 tab(s), Oral, qDay, 30 tab(s), 0 Refill(s), Medications (9) Active Scheduled: (8) ceFAZolin 2 gram(s), IV Piggyback, PREOP pharm dexamethasone 10 mg/mL (1mL) SDV 10 mg 1 mL, IV Push, AsDirected heparin 30,000 unit(s) 6 mL, Miscellaneous, PREOP pharm povidone iodine topical 17.5 mL, Topical (INT), PREOP pharm ropivacaine 100 mg + ketorolac 15 mg + epinephrine 0.3 mg + morphine 2.5 mg 100 mg 20 mL, Other, PREOP pharm ropivacaine 100 mg + ketorolac 15 mg + epinephrine 0.3 mg + morphine 2.5 mg 100 mg 20 mL, Other, PREOP pharm tranexamic acid PMX 1 gram(s) 100 mL, IV Piggyback, AsDirected tranexamic acid PMX 1 gram(s) 100 mL, IV Piggyback, AsDirected Continuous: (1) Lactated Ringers 1,000 mL 1,000 mL, Intravenous, 20 mL/hr PRN: (0) Problem list: Active Problems (7) Campos's palsy GERD (gastroesophageal reflux disease) Osteoarthritis Pneumonia Rheumatoid arthritis Sjogren's disease Sleep apnea Histories Past Medical History: No active or resolved past medical history items have been selected or recorded. Family History: No family history items have been selected or recorded. Procedure history: Hysterectomy ([id number]). Open reduction and internal fixation of fracture ([id number]). Comments: 05/22/2023 13:04 China Taylor RN LEFT TIB/FIB Facial bone operation ([id number]). Index finger ([id number]). Comments: 05/22/2023 13:05 China Taylor RN RIGHT Laparotomy ([id number]). Comments: 05/22/2023 13:05 China Taylor RN X3 Laminectomy ([id number]). Comments: 05/22/2023 13:04 China Taylor RN L5-S1 Rotator cuff repair ([id number]). Comments: 05/22/2023 13:05 China Taylor RN LEFT Total hip replacement ([id number]). Social History Social & Psychosocial Habits Alcohol 05/22/2023 Use: Current Frequency: 1-2 times per month Substance Abuse 05/22/2023 Use: Never Tobacco 05/22/2023 Tobacco Use: Never (less than 100 in l Home/Environment 05/22/2023 Domestic Concerns None Living situation: Home/Independent . Physical Examination Vital Signs 06/11/2023 11:35 EDT Heart Rate Monitored 56 bpm bpm Respiratory Rate - Anes 13 br/min br/min Systolic Blood Pressure Non-Invasive 108 mmHg mmHg Diastolic Blood Pressure Non-Invasive 66 mmHg mmHg 06/11/2023 11:30 EDT Heart Rate Monitored 58 bpm bpm Respiratory Rate - Anes 4 br/min br/min Systolic Blood Pressure Non-Invasive 127 mmHg mmHg Diastolic Blood Pressure Non-Invasive 73 mmHg mmHg 06/11/2023 11:25 EDT Respiratory Rate - Anes 0 br/min br/min Systolic Blood Pressure Non-Invasive 171 mmHg mmHg Diastolic Blood Pressure Non-Invasive 94 mmHg mmHg 06/11/2023 11:20 EDT Respiratory Rate - Anes 0 br/min br/min Systolic Blood Pressure Non-Invasive 201 mmHg mmHg Diastolic Blood Pressure Non-Invasive 90 mmHg mmHg 06/11/2023 8:35 EDT Temperature Temporal Artery 35.9 DegC Apical Heart Rate 61 bpm Respiratory Rate 14 br/min Systolic Blood Pressure Non-Invasive 165 mmHg HI Diastolic Blood Pressure Non-Invasive 88 mmHg Blood Pressure Method Automatic Blood Pressure Location Left arm Blood Pressure Cuff Size Medium Vital Signs(last 24 hrs) Last Charted Heart Rate [id number] bpm (JUN 11 11:35) Resp Rate 14 br/min (JUN 11:35) [id number] mmHg (JUN 11:35) DBP66 mmHg (JUN 11:35) BMI29.12 (JUN 11:35) Measurements from flowsheet : Measurements 06/11/2023 8:35 EDT Height 167.6 cm Admission Weight 81.8 kg Weight Method Stated [place] Body Weight 59.26 kg Body Mass Index 29.12 kg/m2 Body Mass Index 29.12 kg/m2 Pain assessment: Pain Assessment 06/11/2023 8:35 EDT Primary Pain Intensity 0 Pain Scale Type 0-10 Pain scale . General: Alert and oriented. Airway: Normal temporomandibular joint mobility. Mallampati classification: II (soft palate, fauces, uvula visible). Head: Normocephalic. Dentition Evaluation: Own teeth. Neck: Supple. Respiratory: Lungs are clear to auscultation. Cardiovascular: Normal rate. Heart Sounds: Normal. Gastrointestinal: Soft. Musculoskeletal Normal range of motion. Integumentary: Intact. Neurologic: Alert, Oriented. Review / Management Results review: No qualifying data available , Lab results 06/11/2023 11:38 EDT SN - CAt - Case Attendee SN - CAt - Case Attendee SN - CAt - Role Performed Other 06/11/2023 11:38 EDT SN - SP - Prep Agents Chloraprep SN - SP - HR - Method Clipped in OR 06/11/2023 11:37 EDT SN - LA - Route of Administration Local SN - LA - Route of Administration Local SN - LA - By (Single) SN - LA - By (Single) SN - LA - By (Single) SN - LA - By (Single) 06/11/2023 11:35 EDT Heart Rate Monitored 56 bpm bpm Respiratory Rate - Anes 13 br/min br/min Systolic Blood Pressure Non-Invasive 108 mmHg mmHg Diastolic Blood Pressure Non-Invasive 66 mmHg mmHg Oxygen Saturation 100 % % 06/11/2023 11:30 EDT Heart Rate Monitored 58 bpm bpm Respiratory Rate - Anes 4 br/min br/min Systolic Blood Pressure Non-Invasive 127 mmHg mmHg Diastolic Blood Pressure Non-Invasive 73 mmHg mmHg Oxygen Saturation 94 % % 06/11/2023 11:25 EDT Respiratory Rate - Anes 0 br/min br/min Systolic Blood Pressure Non-Invasive 171 mmHg mmHg Diastolic Blood Pressure Non-Invasive 94 mmHg mmHg 06/11/2023 11:20 EDT Respiratory Rate - Anes 0 br/min br/min Systolic Blood Pressure Non-Invasive 201 mmHg mmHg Diastolic Blood Pressure Non-Invasive 90 mmHg mmHg SN - CTm - Anesthesia Start Time Anesthesia Start 06/11/2023 11:13 EDT SN - XI - X-Ray Type C-Arm 06/11/2023 11:11 EDT SN - Proc - Actual Procedure REVISION LEFT TOTAL HIP ARTHROPLASTY, ANTERIOR APPROACH 06/11/2023 11:10 EDT SN - Irl - Irrigant Normal Saline SN - Irl - Irrigant Normal Saline SN - Irl - Irrigant Sterile Water SN - IrI - Volume In 500 mL SN - IrI - Volume In 450 mL SN - Irl - Additive BETADINE (POVIDONE IODINE) SOLUT SN - Irl - Additive IRRIGATION CHG 0.05% IRRISEPT 12/CA [id number] SN - IrI - Volume Out 500 mL SN - IrI - Volume Out 450 mL 06/11/2023 11:08 EDT SN - PP - Body Position Supine Standard Intra-op 06/11/2023 11:06 EDT SN - Assess - LOC Alert, Awake SN - Assess - Orientation Oriented X 3 SN - Assess - Post-op Skin Integrity Intact/Dry 06/11/2023 11:03 EDT SN - GCD - Post-operative Diagnosis DISLOCATION OF INTERNAL HIP PROSTHESIS, LEFT SN - GCD - Case Level Level 5 06/11/2023 11:01 EDT SN - CAt - Case Attendee SN - CAt - Case Attendee SN - CAt - Case Attendee SN - CAt - Case Attendee SN - CAt - Case Attendee SN - CAt - Case Attendee SN - CAt - Case Attendee SN - CAt - Case Attendee SN - CAt - Case Attendee SN - CAt - Case Attendee SN - CAt - Case Attendee SN - CAt - Case Attendee SN - CAt - Case Attendee SN - CAt - Case Attendee SN - CAt - Case Attendee SN - CAt - Case Attendee SN - CAt - Case Attendee SN - CAt - Case Attendee SN - CAt - Role Performed Primary Surgeon SN - CAt - Role Performed Wallpaper Remover Steam 2 SN - CAt - Role Performed Wallpaper Remover Steam 1 SN - CAt - Role Performed Scrub 1 SN - CAt - Role Performed Picker Feeder 1 SN - CAt - Role Performed HUMAN RESOURCES PROFESSIONAL SN - CAt - Role Performed Corporate Webmaster SN - CAt - Role Performed Physician Gut Dropper SN - CAt - Role Performed Unionmelt Operator 06/11/2023 9:06 EDT SN - Preop - CTm Pt in SDS Room 06/11/2023 8:28 SN - Preop - CTm Pt Ready for OR/Proced 06/11/2023 9:06 06/11/2023 8:53 EDT celecoxib 400 mg mg 06/11/2023 8:49 EDT famotidine 20 mg mg vancomycin 1,250 mg mg Lactated Ringers Injection 1,000 mL mL Sodium Chloride 0.9% 250 mL mL 06/11/2023 8:47 EDT ABO/Rh Interp O POS Antibody Screen Gel Negative ABSC Forearm Left 06/11/2023 20 gauge Peripheral IV Activity: Insert new site Peripheral IV Dressing Condition: Clean, Dry, Intact Peripheral IV Dressing Activity: Applied, Transparent dressing Peripheral IV Line Status/Patency: Flushes easily Peripheral IV Site Condition: No complications Peripheral IV Equipment: Extension set, PRN Adaptor 06/11/2023 8:39 EDT IV Present Present Allergies No Anesthesia Extension Set Applied Yes Microscopist On Yes Consent Form Signed Yes Patient Dressed In Hospital gown CHG Preoperative Wash/Wipe Night before procedure, Day of procedure, Site specific wipe Preop Nasal Swab Povidone-Iodine CHG Skin Prep Completed for Eligible Surgery History & Physical Update On Chart Yes History & Physical On Chart Yes Obstructive Sleep Apnea Assess Completed Yes Belongings At Bedside Glasses, Pants, Shirt, Shoes, Undergarments NPO Status Maintained Allergy Band on and Verified No Patient ID Band on and Verified Yes Implants Verified Yes Pacemaker/AICD Verified Yes Site Verified by Patient/Family Yes Anesthesia Consent Signed Yes Blood Consent Signed Yes Last Fluid Intake 06/10/2023 20:00 Last Food Intake 06/10/2023 18:00 Last Void 06/11/2023 8:41 Patient Cleared for Surgery By KYUNG PALMA MD 06/11/2023 8:35 EDT Designated Person #1 We May Share RAMÓN DE LOS SANTOS [phone] Designated Person #1 Relationship Spouse Privacy Restrictions Requested None Height 167.6 cm Admission Weight 81.8 kg Weight Method Stated [place] Body Weight 59.26 kg Body Mass Index 29.12 kg/m2 Body Mass Index 29.12 kg/m2 Temperature Temporal Artery 35.9 DegC Apical Heart Rate 61 bpm Respiratory Rate 14 br/min Systolic Blood Pressure Non-Invasive 165 mmHg HI Diastolic Blood Pressure Non-Invasive 88 mmHg Blood Pressure Method Automatic Blood Pressure Location Left arm Blood Pressure Cuff Size Medium Primary Pain Intensity 0 Pain Scale Type 0-10 Pain scale Heart Rhythm Regular Respirations Unlabored Respiratory Pattern Regular Oxygen Therapy Room air Oxygen Saturation 95 % Abdomen Description Non-distended Abdomen Palpation Non-Tender Bowel Sounds All Quadrants Present Urinary Elimination Voiding, no difficulties Status No, per patient Skin Temperature Warm Skin Description [place], Dry Skin Integrity Intact Neurological Symptoms Patient denies Extremity Movement Equal Characteristics of Speech Clear Level of Consciousness Alert Strength All Extremities Strong Tone All Extremities Normal Sensation All Extremities Intact Affect/Behavior Appropriate Orientation Oriented x 4 Sensory Deficits None Sleep Apnea Snore No Sleep Apnea Tired No Sleep Apnea Obstruction No Sleep Apnea Pressure Yes Sleep Apnea BMI No Sleep Apnea Age Yes Sleep Apnea Neck No Sleep Apnea Gender No Sleep Apnea Score 2 High Risk for Sleep Apnea No Diagnosed With Sleep Apnea No Advanced Directives No - refuses information Infectious Disease Symptoms Patient states no symptoms Infectious Disease Recent Exposure No Alcohol and Drug Use No Employee of Institutional Living No Health Care Employee No History of Exposure to TB No History of Positive Chest X-Ray for TB No History of Positive TB Skin Test No Homeless No Known Immunosuppression No Recent Immigrant No Resident of Institutional Living No Bloody Sputum No Fatigue No Fever No Loss of Appetite No Night Sweats No Persistent Cough > 3 Weeks No Weight Loss No Barriers to Learning None evident Teaching Method Explanation, Printed materials Preferred Spoken Language Mauritanian Preferred Written Language Mauritanian Teaching Evaluation Verbalizes/Nonverbally indicates understanding Safety Brochure Information Reviewed Unable to complete Chance Zayas Video Viewed No Information Given by Patient Patient's Current Physicians Patient's Current Physicians Discharge To, Anticipated Home independently Prev Test Positive/Diagnosis w/COVID-19 No Current Quarantine/Isolated any Illness No Any Contact with Sick Animals/Birds No Traveled Anywhere in Last 30 Days No Lost Weight Unintentionally Recently No Eat Poorly Due to Decreased Appetite No Total MST Score 0 No Personal Devices, Patient Valuables Glasses Anesthesia/Transfusions Prior anesthesia Admission Note-Nursing Same Day Patient History 06/11/2023 8:30 EDT citric acid-sodium citrate Not Done: Not Appropriate at this Time (Not Done) . Assessment and Plan [employer] Anesthesiologists (ASA) physical status classification: Class II. Anesthetic Preoperative Plan Premedication: intravenous. Anesthetic technique: Spinal. Induction: intravenously. Maintenance airway: 40% FM. Regional: Spinal. Postoperative pain management: Per surgeon. Informed consent: signed by patient. Digitally Signed by FRACNINE OCASIO on 06/11/2023 11:48 AM [facility] 05-18-2023 Note . MICRO - Microbiology PROCEDURE: Blood Culture (bacterial) [*1] SOURCE: Blood BODY SITE: COLLECTED DATE/TIME: 05/12/2023 01:36 EDT RECEIVED DATE/TIME: 05/13/2023 08:03 EDT START DATE/TIME: 05/13/2023 08:04 EDT FREE TEXT SOURCE: refrigerated overnight FINAL REPORTS Final Report [] Verified Date/Time/Personnel: 05/18/2023 08:59 EDT Blood Culture: No Growth at 5 days. PRELIMINARY REPORTS Preliminary Report [] Verified Date/Time/Personnel: 05/13/2023 08:59 EDT Culture has been received in lab and is no growth to date. Routine cultures are held for 5 days. Performing Locations *1: This test was performed at: [address] ([place]) 05-18-2023 Note . MICRO - Microbiology PROCEDURE: Blood Culture (bacterial) [*1] SOURCE: Blood BODY SITE: COLLECTED DATE/TIME: 05/12/2023 02:50 EDT RECEIVED DATE/TIME: 05/13/2023 08:05 EDT START DATE/TIME: 05/13/2023 08:06 EDT FREE TEXT SOURCE: refrigerated overnight FINAL REPORTS Final Report [] Verified Date/Time/Personnel: 05/18/2023 08:59 EDT Blood Culture: No Growth at 5 days. PRELIMINARY REPORTS Preliminary Report [] Verified Date/Time/Personnel: 05/13/2023 08:59 EDT Culture has been received in lab and is no growth to date. Routine cultures are held for 5 days. Performing Locations *1: This test was performed at: , [address] [place] [address], [place], [address] , [place] [facility] ([place]) Evaluation + Plan note Future Appointments [facility] Hospital course Narrative No data available for this section [facility] Hospital Discharge instructions No data available for this section [facility] Progress note No data available for this section [facility] Summary Purpose Family History No Family History Records Found Advance Directives No Advanced Directives Records FoundNo Advanced Directives Records FoundNo Advanced Directives Records Found Additional Source Comments Patient Care team informatio n (unrecognized section and content) Care Team Personnel Name: KYUNG PALMA MD Member Role: Primary Care Physician Address: Address: [address] [place] [address]- Care Team Related Persons Name: BERTRAND DE LOS SANTOS Care Team Personnel Name: KYUNG PALMA MD Member Role: Primary Care Physician Address: Address: [address] [place], [place] [id number]- Care Team Related Persons Name: BERTRAND DE LOS SANTOS INFORMATION SOURCE (unrecogn ized section and content) DATE CREATED AUTHOR 08/12/2023 [facility] ([place]) DATE CREATED AUTHOR AUTHOR'S ORGANIZ ATION 04/13/[address] [facility] DATE CREATED AUTHOR AUTHOR'S ORGANIZ ATION 05/01/2025 [facility] FOR RECORDS PERTAINING TO PATIENTS WHO ARE OR HAVE BEEN ENROLLED IN A CHEMICAL DEPENDENCY/SUBSTANCEABUSE PROGRAM, SOME INFORMATION MAY BE OMITTED. This clinical summary was aggregated from multiple sources. Caution should be exercised in using it in the provision of clinical care. This summary normalizes information from multiple sources, and as a consequence, information in this document may materially change the coding, format and clinical context of patient data. In addition, data may be omitted in some cases. CLINICAL DECISIONS SHOULD BE BASED ON THE PRIMARY CLINICAL RECORDS. [facility] [facility]. provides no warranty or guarantee of the accuracy or completeness of information in this document.
== END | disposition home or self-care (01) ==
LOC: MTLAB 14:08
PROVIDERS: PCP Internal Medicine; Referring Provider Internal Medicine Gastroenterology; Visit Provider Internal Medicine Gastroenterology
DX: K62.5 Hemorrhage of anus and rectum (principal)
CPT/HCPCS: 36415; 83540; 85027

== ENCOUNTER → 2025-10-27 | Outpatient (CLI) | payer MEDICARE, OTHER, SELFPAY ==
--- OUTSIDE RECORDS SUMMARY | 2025-10-27 13:16 | XMS RPT_ITS | CCD ---
Author Organization [facility] Care Team Providers Care Public Health Officer Name Role Phone ELENA COHEN, DR TRACEY Primary Care Physician ADAM COHEN, DR LAUREL Dunn Attending Unavailab farzad PARKER MD, DR TRACEY Primary Care Unavailable VALE WOODALLSENIOR TAX ANALYST, JOHN Whitehead Attending Giorgio ZHANG, JOHN Whitehead Consulting Giorgio MEDINA MD, DR LAUREL Dunn Referring Unavailab farzad MEDINA MD, DR LAUREL Dunn Admitting Unavailab farzad PARKER MD, DR TRACEY Primary Care Unavailable Elena COHEN, Dr. Tracey Primary Care Provider Aron COHEN, Dr. Cherry Attending Provider Aron COHEN, Dr. Cherry Referring Provider Chandni Mi Attending Unavailable Dilip Ruiz Referring Unavailable Dilip Ruiz Attending Unavailable Kyung Parker Primary Care Unavailable February SENIOR TAX ANALYST Primary Care Unavailable BCFebruary SENIOR TAX ANALYST Attending Unavailable BCFebruary SENIOR TAX ANALYST Admitting Unavailable RAKESH GRAHAM K Consulting Unavailable PROVIDER, UNKNOWN Consulting Unavailable CHINEDU GRACIA MD Primary Care Unavailable CHINEDU GARCIA MD Attending Unavailable RAKESH GRAHAM K Consulting Unavailable CHINEDU GARCIA MD Admitting Unavailable PROVIDER, UNKNOWN Consulting Unavailable BCFebruary SENIOR TAX ANALYST Primary Care Unavailable BCFebruary SENIOR TAX ANALYST Attending Unavailable BCFebruary SENIOR TAX ANALYST Admitting Unavailable GLADYS RAKESH K Consulting Unavailable PROVIDER, UNKNOWN Consulting Unavailable DILIP RUIZ Primary Care Unavailable DILIP RUIZ Attending Unavailable DILIP RUIZ Admitting Unavailable KYUNG PARKER MD Primary Care Unavailable KYUNG PARKER MD Attending Unavailable KYUNG PARKER MD Admitting Unavailable GLADYS RAKESH K Consulting Unavailable PROVIDER, UNKNOWN Consulting Unavailable BCFebruary [facility] Primary Care Unavailable BC, FEBRUARY SENIOR TAX ANALYST Attending Unavailable BC, FEBRUARY SENIOR TAX ANALYST Admitting Unavailable BC, FEBRUARY [facility] Primary Care Unavailable BC, FEBRUARY [facility] Attending Unavailable BC, FEBRUARY [facility] Admitting Unavailable RAKESH GRAHAM Consulting Unavailable PROVIDER, UNKNOWN Consulting Unavailable KYUNG PARKER MD Primary Care Unavailable KYUNG PARKER MD Attending Unavailable KYUNG PARKER MD Admitting Unavailable Jamie SAUNDERS Primary Care Unavailable Jamie SAUNDERS Attending Unavailable Jamie SAUNDERS Admitting Unavailable Jamie SAUNDERS Primary Care Unavailable Jamie SAUNDERS Attending Unavailable Jamie SAUNDERS Admitting Unavailable BC, FEBRUARY SENIOR TAX ANALYST Primary Care Unavailable BC, FEBRUARY [facility] Attending Unavailable BC, FEBRUARY [facility] Admitting Unavailable RAKESH GRAHAM Consulting Unavailable PROVIDER, UNKNOWN Consulting Unavailable DR KYUNG PARKER MD Primary Care Unavailable RADHA COHEN, CHINEDU Garcia Attending Unavailable LILLIANA CHING MD Consulting Unavailable Allergies Allergy Classification Reported Allergen(s) Allergy Type Date of Onset Reaction(s) Facility (2 sources) Adhesive Tape; Translations: [adhesive tape] Propensity to adverse reactions 4 [facility] (1 source) Latex Propensity to adverse reactions 4 [facility] (1 source) Latex Drug allergy (disorder) [address] [place] [address] Repository Medications Current Medications Medication Drug Class(es) Dates Sig (Normalized) Sig (Original) acetaminophen 500 mg oral tablet (2 sources) Start: 09-02-2024 take 1 tablet by mouth every six hours as needed Acetaminophen (Tylenol Extra Strength) 500 mg tablet Active 500 mg PO EVERY 6 HOURS as needed September 02, 2024 12:00am Start: 06-12-2023 End: 06-26-2023 take 1 tablet by mouth once daily acetaminophen 500 mg oral tablet Dose : 1,000 mg = 2 tab(s), Oral, TID, PRN as needed for pain, not to exceed 3000 mg/day, X 14 day(s), # 100 tab(s), 0 Refill(s), 06/26/23 7:36:00 AM EDT, Pharmacy: [id number], 167.6, cm, 06/11/23 15:03:00 EDT, Height, kg, 06/11/23 15:03:00 EDT, Dosing Weight Start Date: 06/12/23 Stop Date: 06/26/23 Status: Ordered amLODIPine 5 mg oral tablet (4 sources) Dihydropyridine Calcium Channel Abram Start: 08-20-2025 amLODIPine 5 mg oral tablet Dose : 5 mg = 1 tab(s), Oral, qDay, 0 Refill(s) Start Date: 08/20/25 Status: Ordered Medication Dispense Status: Completed Total Allowed Fills: 1 Fills Dispensed: 0 Start: 09-02-2024 take 1 tablet by adiel th once daily Amlodipine 5 mg tablet Active 5 mg PO daily September 02, 2024 12:00am Start: 05-22-2023 take 1 tablet by adiel th once daily amLODIPine 2.5 mg oral tablet TAKE 1 TABLET BY MOUTH ONCE DAILY Start Date: 05/22/23 Status: Ordered Antiarthritic Combination No.2 (Glucosamine-Chondroitin) 900 mg tablet (1 source) Start: 09-02-2024 Antiarthritic Combination No.2 (Glucosamine-Chondroitin) 900 mg tablet Active mg PO September 02, 2024 12:00am aspirin 81 mg delayed release oral tablet (1 source) Platelet Aggregation Inhibitor, Nonsteroidal Anti-inflammat ory Drug Start: 06-12-2023 End: 07-12-2023 take 1 tablet by mouth twice daily aspirin 81 mg oral delayed release tablet Dose : 81 mg = 1 tab(s), Oral, BID, Take 81 mg aspirin twice daily with food for 4 weeks postoperatively for DVT prophylaxis., # 60 tab(s), 0 Refill(s), Pharmacy: [id number], 167.6, cm, 06/11/23 15:03:00 EDT, Height, kg, 06/11/23 15:03:00 EDT, Dosing Weight Start Date: 06/12/23 Stop Date: 07/12/23 Status: Ordered balsalazide disodium 750 mg oral capsule (1 source) Aminosalicylat e Start: 08-20-2025 balsalazide 750 mg oral capsule Dose : 2,250 mg = 3 cap(s), Oral, TID, 0 Refill(s) Start Date: 08/20/25 Status: Ordered Medication Dispense Status: Completed Total Allowed Fills: 1 Fills Dispensed: 0 Chondroitin Sulfates / Glucosamine (1 source) Start: 08-20-2025 take 1 capsule by mouth once daily Glucosamine Chondroitin Dose = 2 cap(s), Oral, qDay, 0 Refill(s) Start Date: 08/20/25 Status: Ordered Medication Dispense Status: Completed Total Allowed Fills: 1 Fills Dispensed: 0 docusate sodium 50 mg / sennosides, senior living 8.6 mg oral tablet (1 source) Start: 06-12-2023 End: 06-15-2023 take 1 tablet by mouth twice daily Senokot S 50 mg-8.6 mg oral tablet Dose = 2 tab(s), Oral, BID, Take until first bowel movement, then as needed, X 3 day(s), # 12 tab(s), 0 Refill(s), Pharmacy: [id number], 167.6, cm, 06/11/23 15:03:00 EDT, Height, kg, 06/11/23 15:03:00 EDT, Dosing Weight Start Date: 06/12/23 Stop Date: 06/15/23 Status: Ordered doxycycline hyclate 100 mg oral capsule (1 source) Tetracycline-c lass Drug Start: 06-12-2023 End: 06-26-2023 doxycycline hyclate 100 mg oral capsule Dose : 100 mg = 1 cap(s), Oral, q12h, X 14 day(s), # 28 cap(s), 0 Refill(s), 06/26/23 7:37:00 AM EDT, Pharmacy: [facility], 167.6, cm, 06/11/23 15:03:00 EDT, Height, 81.8, kg, 06/11/23 15:03:00 EDT, Dosing Weight Start Date: 06/12/23 Stop Date: 06/26/23 Status: Ordered ferrous sulfate 325 mg delayed release oral tablet (2 sources) Start: 08-20-2025 ferrous sulfate 325 mg (65 mg elemental iron) oral delayed release tablet Dose : 325 mg = 1 tab(s), Oral, qDay, 0 Refill(s) Start Date: 08/20/25 Status: Ordered Medication Dispense Status: Completed Total Allowed Fills: 1 Fills Dispensed: 0 Start: 09-02-2024 take 1 tablet by mouth once da jun Ferrous Sulfate 325 mg (65 mg iron) tablet Active 325 mg PO daily September 02, 2024 12:00am hydroxychloroquine sulfate 200 mg oral tablet (4 sources) Antimalarial, Antirheumatic Agent Start: 05-22-2023 take 1 tablet by mouth twice daily Hydroxychloroquine (Plaquenil) 200 mg tablet Active 200 mg PO TWICE A DAY September 02, 2024 12:00am meloxicam 7.5 mg oral tablet (1 source) Nonsteroidal Anti-inflammatory Drug Start: 06-12-2023 Mobic 7.5 mg oral tablet Dose : 7.5 mg = 1 tab(s), Oral, BIDM, Do not take any other nonsteroidal anti-inflammatories while on meloxicam/Mobic, # 60 tab(s), 0 Refill(s), Pharmacy: [facility], 167.6, cm, 06/11/23 15:03:00 EDT, Height, kg, 06/11/23 15:03:00 EDT, Dosing Weight Start Date: 06/12/23 Status: Ordered mesalamine 66.7 mg/ml enema (1 source) Aminosalicylate Start: 08-20-2025 mesalamine 4 g/60 mL rectal enema Dose : 4 gram(s) = 1 EA, Rectal, qHS, # 1 EA, 0 Refill(s) Start Date: 08/20/25 Status: Ordered Medication Dispense Status: Completed Quantity: 1.0 Unit: EA Total Allowed Fills: 1 Fills Dispensed: 0 mometasone furoate 0.05 mg/actuat metered dose nasal spray (1 source) Corticosteroid Start: 08-20-2025 take 1 dose nasal route once daily Nasonex 50 mcg/inh nasal spray Dose = 1 spray(s), Nostril, each, qDay, # 17 gram(s), 0 Refill(s) Start Date: 08/20/25 Status: Ordered Medication Dispense Status: Completed Quantity: 17.0 Unit: g Total Allowed Fills: 1 Fills Dispensed: 0 oxyCODONE hydrochloride 5 mg oral tablet (1 source) Opioid Agonist Start: 06-12-2023 End: 06-19-2023 take 1-2 tablets by mouth every four hours as needed for pain oxyCODONE 5 mg oral tablet ( IMMEDIATE release ) See Instructions, PRN as needed for pain, 1-2 tab(s) Oral q4h, # 42 tab(s), 0 Refill(s), 06/19/23 7:38:00 AM EDT, Pharmacy: [id number], History of revision of total replacement of left hip joint, 167.6, cm, 06/11/23 15:03:00 EDT, Height, 81.8, kg, 06/11/23 15:03:00 EDT, Dosing Weight Start Date: 06/12/23 Stop Date: 06/19/23 Status: Ordered pantoprazole 20 mg delayed release oral tablet (4 sources) Proton Pump Inhibitor Start: 05-22-2023 take 1 tablet by mouth once daily Pantoprazole 20 mg tablet,delayed release (DR/EC) Active 20 mg PO daily September 02, 2024 12:00am predniSONE 5 mg oral tablet (1 source) Start: 09-02-2024 Prednisone 5 mg tablet Active 5 mg PO As Directed September 02, 2024 12:00am PRN sertraline 25 mg oral tablet (4 sources) Serotonin Reuptake Inhibitor Start: 05-22-2023 take 1 tablet by mouth once daily Sertraline 25 mg tablet Active 25 mg PO daily September 02, 2024 12:00am turmeric extract 500 mg oral capsule (1 source) Start: 08-20-2025 turmeric 500 mg oral capsule Dose : 500 mg = 1 cap(s), Oral, Daily, 0 Refill(s) Start Date: 08/20/25 Status: Ordered Medication Dispense Status: Completed Total Allowed Fills: 1 Fills Dispensed: 0 Vitamin C 500 mg oral tablet (1 source) Start: 08-20-2025 Vitamin C 500 mg oral tablet Dose : 1,000 mg = 2 tab(s), Oral, qDay, 0 Refill(s) Start Date: 08/20/25 Status: Ordered Medication Dispense Status: Completed Total Allowed Fills: 1 Fills Dispensed: 0 Vitamin D3 25 mcg (1000 intl units) oral tablet (2 sources) Start: 05-22-2023 Vitamin D3 25 mcg (1000 intl units) oral tablet Dose : 25 mcg = 1 tab(s), Oral, qDay, # 30 tab(s), 0 Refill(s) Start Date: 05/22/23 Status: Ordered Problems Active Problems Problem Classification Problem Date Documented Da te Episodic/Chronic Cardiac dysrhythmias (1 source) Sinus bradycardia; Translations: [Bradycardia, unspecified] Onset: 3 Episodic Deficiency and other anemia (1 source) Iron deficiency anemia, unspecified; Translations: [Iron deficiency anemia, unspecified] Onset: 5 Episodic Esophageal disorders (1 source) Gastroesophageal reflux disease; Translations: [Gastro-esophageal reflux disease without esophagitis] 09-02-2024 Chronic Essential hypertension (2 sources) Essential hypertension; Translations: [Essential (primary) hypertension] Onset: 3 Chronic Fluid and electrolyte disorders (1 source) Hyperkalemia; Translations: [Hyperkalemia] Onset: 3 Episodic Gastrointestinal hemorrhage (1 source) Hemorrhage of anus and rectum; Translations: [Hemorrhage of anus and rectum] Onset: 5 Episodic Osteoarthritis (3 sources) Osteoarthritis; Translations: [Unspecified osteoarthritis, unspecified site] Onset: 3 Chronic Other connective tissue disease (1 source) Hip joint prosthesis present; Translations: [Presence of left artificial hip joint] Onset: 3 Chronic Other ear and sense organ disorders (1 source) Hearing difficulty; Translations: [Unspecified hearing loss, unspecified ear] 09-02-2024 Chronic Other screening for suspected conditions (not mental disorders or infectious disease) (1 source) Encounter for screening for lipoid disorders; Translations: [Encounter for screening for lipoid disorders] Onset: 5 Episodic Prolapse of female genital organs (3 sources) Cystocele; Translations: [Cystocele, unspecified] Onset: 5 10-19-2024 Chronic Comment on above: stage 3 cystocele; s tage 2 rectocele Rheumatoid arthritis and related disease (2 sources) Rheumatoid arthritis; Translations: [Rheumatoid arthritis, unspecified] Onset: 3 Chronic Spondylosis; intervertebral disc disorders; other back problems (1 source) Back problem; Translations: [Dorsopathy, unspecified] 09-02-2024 Episodic Systemic lupus erythematosus and connective tissue disorders (2 sources) Sjogren's syndrome; Translations: [Sicca syndrome, unspecified] Onset: 09-02-2024 Chronic Past or Other Problems Problem Classification Problem Date Documented Da te Episodic/Chronic Other aftercare (3 sources) Other group home (current) drug therapy; Translations: [Other non destructive evaluation manager (current) drug therapy] Onset: 01-06-2025 Episodic Other hematologic conditions (1 source) Other abnormality of red blood cells; Translations: [Other abnormality of red blood cells] Onset: 08-19-2024 Episodic Results Test Name Value Interpretation Reference Range Facility Final Surgical Pathology Rep kasandra 08-24-2025 Final Surgical Pathology Report . Pathology Reports Accession: Collected Date/Time: Received Date/Time: Pathologist: [id number] 08/20/2025 11:20 EDT 08/20/2025 14:08 EDT JEFF NICHOLSON MD Final Surgical Pathology Report DIAGNOSIS: LUNG NODULE, NEEDLE CORE BIOPSY: - NODULAR AMYLOIDOSIS. CONGO RED STAIN SHOWS APPLE GREEN BIREFRINGENCE UNDER POLARIZED LIGHT CLINICAL INFORMATION: RLL NODULE Procedure: LUNG BX SPECIMEN: A RIGHT LUNG - 6 CORES GROSS DESCRIPTION: All parts labelled with patient name and [id number] Received in formalin labelled lung Are multiple red cylindrical lung core biopsies and core fragments ranging from less than 0.1 to 0.5 cm. TS-1 Isak Coronado, Pathologists' Electrostatic Paint Operator (ASCP) Performed by ISAK CORONADO MICROSCOPIC DESCRIPTION: The microscopic examination is performed, except in the case of Gross Only. Verified by Pathology Report verified by [facility] JEFF NICHOLSON Sign out Date: 08/24/2025 13:05 Performing Lab: [facility], [address] [place] [address] Pathology Dept Disclaimer If ancillary studies were utilized, the following Laboratory Developed Test (LDT) disclaimer will apply: Under CLIA requirements, [facility] Pathology Laboratory is qualified to perform high complexity testing. For all ancillary, histochemical, in situ hybridization and immunostains, the controls are reviewed by the case pathologist, prior to and/or concurrent with the patients results to ensure appropriate staining the meets the performance specifications considered acceptable for patient testing. Performance characteristics of immunohistochemical and chromogenic in situ hybridization tests have been determined by [facility]. These tests are used for clinical purposes, they should not be regarded as investigational or for research. Normal [facility] .Auto Diffon 08-20-2025 Basophil, Absolute 0.0 10 3/mcL Normal 0.0-0.3 [facility] Comment on above: Performed By: #### A DIFF, CBC, ANEU, PRO #### [address] [address] Basophils/100 WBC (Bld) 0.6 % Normal 0.0-2.5 [facility] Comment on above: Performed By: #### A DIFF, CBC, ANEU, PRO #### [address] [address] Eosinophil, Absolute 0.1 10 3/mcL Normal 0.0-0.7 [facility] Comment on above: Performed By: #### A DIFF, CBC, ANEU, PRO #### [address] [address] Eosinophils/100 WBC (Bld) 2.4 % Normal 0.0-6.0 [facility] Comment on above: Performed By: #### A DIFF, CBC, ANEU, PRO #### [address] [address] Lymphocyte, Absolute 0.6 10 3/mcL Low 0.9-4.3 [facility] Comment on above: Performed By: #### A DIFF, CBC, ANEU, PRO #### [address] [address] Lymphocytes/100 WBC (Bld) 19.2 % Low 20.0-40.0 [facility] Comment on above: Performed By: #### A DIFF, CBC, ANEU, PRO #### [address] [address] Monocyte, Absolute 0.4 10 3/mcL Normal 0.1-1.4 [facility] Comment on above: Performed By: #### A DIFF, CBC, ANEU, PRO #### [address] [address] Monocytes/100 WBC (Bld) 10.7 % Normal 2.0-13.0 [facility] Comment on above: Performed By: #### A DIFF, CBC, ANEU, PRO #### [address] [address] Neutrophils/100 WBC (Bld) 67.1 % Normal 50.0-75.0 [facility] Comment on above: Performed By: #### A DIFF, CBC, ANEU, PRO #### [address] [address] .NEUABSon 08-20-2025 Neutrophil, Absolute 2.2 10 3/mcL Low 2.3-8.1 [facility] Comment on above: Performed By: #### A DIFF, CBC, ANEU, PRO #### [address] [address] CBCon 08-20-2025 Erythrocyte distribution width (RBC) [Ratio] 16.0 % High 11.5-15.5 [facility] Comment on above: Performed By: #### A DIFF, CBC, ANEU, PRO #### [place] [address] Hematocrit (Bld) [Volume fraction] 38.8 % Normal 34.0-46.0 [facility] Comment on above: Performed By: #### A DIFF, CBC, ANEU, PRO #### [place] [address] Hgb 12.3 G/dL Normal 12.0-16.0 [facility] Comment on above: Performed By: #### A DIFF, CBC, ANEU, PRO #### [address] [address] MCH (RBC) [Entitic mass] 26.4 pg Low 27.0-33.0 [facility] Comment on above: Performed By: #### A DIFF, CBC, ANEU, PRO #### [place] [address] MCHC 31.7 G/dL Low 32.0-36.0 [facility] Comment on above: Performed By: #### A DIFF, CBC, ANEU, PRO #### [place] [address] MCV (RBC) [Entitic vol] 83.4 fL Normal 80.0-99.0 [facility] Comment on above: Performed By: #### A DIFF, CBC, ANEU, PRO #### [facility] [address] [place] [address] Platelet 234 10 3/mcL Normal 150-450 [facility] Comment on above: Performed By: #### A DIFF, CBC, ANEU, PRO #### [facility] [address] [place] [address] Platelet mean volume (Bld) [Entitic vol] 7.4 fL Normal 6.6-10.5 [facility] Comment on above: Performed By: #### A DIFF, CBC, ANEU, PRO #### [facility] [address] [place] [address] RBC 4.65 10 6/mcL Normal 4.10-5.30 [facility] Comment on above: Performed By: #### A DIFF, CBC, ANEU, PRO #### [address] [address] WBC 3.3 10 3/mcL Low 4.5-10.8 [facility] Comment on above: Performed By: #### A DIFF, CBC, ANEU, PRO #### [facility] [address] [place] [id number] IR BIOPSY LUNGon 08-20-2025 IR BIOPSY LUNG ORIGINAL EXAMINATION: SP BX LUNG PERCUT [id number]/20/2025 2:09 pm SP BX LUNG PERCUT NEEDLE COMPARISON: CT chest dated 04/30/2025 CT abdomen pelvis dated 05/27/2025 HISTORY: ORDERING SYSTEM PROVIDED HISTORY: Reason for Exam: RUL NODULE 20 min sedation, 6 cores TECHNIQUE: INTERVENTIONALIST(S): Lilliana Ching MD CONSENT: The patient/patient's POA/next of kin was informed of the nature of the proposed procedure. The purposes, alternatives, risks, and benefits were explained and discussed. All questions were answered and consent was obtained. SEDATION: Moderate conscious IV sedation services (supervision of administration, induction, and maintenance) were provided by the physician performing the procedure for 20 mins. The physician was assisted by an independent trained observer, an interventional radiology nurse, in the continuous monitoring of patient level of consciousness and physiologic status. RADIATION EXPOSURE: DLP: 299.06 mGy*cm MEDICATION: None. TIME OUT: A time out was performed immediately prior to procedure start with the interventional team, correctly identifying the patient name, date of , MRN, procedure, anatomy (including marking of site and side), patient position, procedure consent form, relevant laboratory and imaging test results, antibiotic administration, safety precautions, and procedure-specific equipment needs. COMPLICATIONS: No immediate adverse events identified. FINDINGS: The patient was position in the right lateral decubitus position. Limited axial CT images were obtained through the chest for the purposes of needle guidance were taken. The images demonstrate a partially calcified nodule within the right lower lobe, which was targeted for CT-guided biopsy. Patient was prepped in the usual sterile manner. Lidocaine was used for local anesthesia. Six passes were made using a 20 g cutting needle via a coxial needle technique. A BioSentry device was utilized to prevent enlarging pneumothorax formation. Postprocedure images demonstrated no evidence of sizeable pneumothorax. A small perilesional hemorrhage was identified. The specimens were sent to pathology for further analysis. The patient tolerated the procedure well without any immediate complications. A chest x-ray is to be performed 2 hours after the procedure. Patient remained asymptomatic following the procedure. IMPRESSION: 1. Uncomplicated CT-guided biopsy of a right lower lobe partially calcified pulmonary nodule. The patient tolerated the procedure well without any immediate complications. The specimens were sent to pathology for further analysis. Interpreted by: Lilliana Ching Preliminary Report By: Lilliana Ching Electronically signed By Lilliana Ching Dictated Date: 08/20/2025 4:37:54 PM Prelim Date: 08/20/2025 4:39:32 PM Sign Date: 08/20/2025 4:39:32 PM Ordering Provider: CHINEDU GARCIA [facility] MAIN LABORATORYOrdered By: SYSTEM SYSTEM on 08-20-2025 Basophils (Bld) [#/Vol] 0.0 103/mcL Normal 0.0 - 0.3 10^3/mcL AH Workflow SS Basophils/100 WBC (Bld) 0.6 % Normal 0.0 - 2.5 % AH Workflow SS Eosinophils (Bld) [#/Vol] 0.1 103/mcL Normal 0.0 - 0.7 10^3/mcL AH Workflow SS Eosinophils/100 WBC (Bld) 2.4 % Normal 0.0 - 6.0 % AH Workflow SS Erythrocyte distribution width (RBC) [Ratio] 16.0 % High 11.5 - 15.5 % Workflow SS Hematocrit (Bld) [Volume fraction] 38.8 % Normal 34.0 - 46.0 % Workflow SS Hemoglobin (Bld) [Mass/Vol] 12.3 G/dL Normal 12.0 - 16.0 G/dL Workflow SS Lymphocytes (Bld) [#/Vol] 0.6 103/mcL Low 0.9 - 4.3 10^3/mcL Workflow SS Lymphocytes/100 WBC (Bld) 19.2 % Low 20.0 - 40.0 % Workflow SS MCH (RBC) [Entitic mass] 26.4 pg Low 27.0 - 33.0 pg Workflow SS MCHC 31.7 G/dL Low 32.0 - 36.0 G/dL Workflow SS MCV (RBC) [Entitic vol] 83.4 fL Normal 80.0 - 99.0 fL Workflow SS Monocytes (Bld) [#/Vol] 0.4 103/mcL Normal 0.1 - 1.4 10^3/mcL Workflow SS Monocytes/100 WBC (Bld) 10.7 % Normal 2.0 - 13.0 % Workflow SS Neutrophils (Bld) [#/Vol] 2.2 103/mcL Low 2.3 - 8.1 10^3/mcL Workflow SS Neutrophils/100 WBC (Bld) 67.1 % Normal 50.0 - 75.0 % Workflow SS Platelet mean volume (Bld) [Entitic vol] 7.4 fL Normal 6.6 - 10.5 fL Workflow SS Platelets (Bld) [#/Vol] 234 103/mcL Normal 150 - 450 10^3/mcL Workflow SS PT Coag (PPP) [Time] 10.9 s Normal 9.0 - 1 4.4 seconds [facility] Comment on above: Interpretive Data: E ffective 05/18/08, Protime results may be affected by some antibiotics (i.e. Ciprofloxacin, Azithromycin, Bactrim) which may potentiate the action of oral anticoagulants, with further increases in Protime/INR. PT International Ratio 0.9 ratio Invalid Interpretation Code [facility] Comment on above: Interpretive Data: Trudi bailey [employer] (CHEST, 1992, 102:312S-25S) recommended therapeutic range for oral anticoagulant therapy is: LOW RISK: Prophylaxis of venous thrombosis INR: 2.0-3.0 Treatment of pulmonary embolism 2.0-3.0 Prevention of systemic embolism 2.0-3.0 HIGH RISK: Mechanical prosthetic valves 2.5-3.5 RBC (Bld) [#/Vol] 4.65 106/mcL Normal 4.10 - 5.3 0 10^6/mcL AH Workflow SS WBC (Bld) [#/Vol] 3.3 103/mcL Low 4.5 - 10.8 10^3/mcL AH Workflow SS PROon 08-20-2025 INR Coag (PPP) [Relative time] 0.9 {INR} Normal [facility] Comment on above: Result Comment: [employer] (CHEST, 1991, 102:312S-25S) recommended therapeutic range for oral anticoagulant therapy is: LOW RISK: Prophylaxis of venous thrombosis INR: 2.0-3.0 Treatment of pulmonary embolism 2.0-3.0 Prevention of systemic embolism 2.0-3.0 HIGH RISK: Mechanical prosthetic valves 2.5-3.5 Performed By: #### A DIFF, CBC, ANEU, PRO #### [facility] [address] [place] [address] 50685 PT Coag (PPP) [Time] 10.9 s Normal 9.0-14.4 [facility] Comment on above: Result Comment: Effe ctive 05/18/08, Protime results may be affected by some antibiotics (i.e. Ciprofloxacin, Azithromycin, Bactrim) which may potentiate the action of oral anticoagulants, with further increases in Protime/INR. Performed By: #### A DIFF, CBC, ANEU, PRO #### [facility] [address] [place] [address] 10716 XR CHEST 1 VIEWon 08-20-2025 XR CHEST 1 VIEW ORIGINAL EXAMINATION: ONE XRAY VIEW OF THE CHEST 08/20/2025 1:41 pm COMPARISON: May 22, 2023 HISTORY: ORDERING SYSTEM PROVIDED HISTORY: Reason for Exam: lung biopsy FINDINGS: Heart is normal in size and there is no vascular congestion present. Minimal infiltrative changes present at the lateral right lung base, presumably post biopsy change. No pleural fluid or air seen. No other contributory finding. IMPRESSION: No post biopsy pneumothorax seen. Interpreted by: Sinan Casas MD Preliminary Report By: Sinan Casas MD Electronically signed By Sinan Casas MD Dictated Date: 08/20/2025 1:50:17 PM Prelim Date: 08/20/2025 1:51:17 PM Sign Date: 08/20/2025 1:51:17 PM Ordering Provider: LILLIANA CHING [facility] OVA & PARASITE EXAM [CCL]on 06-18-2025 OVA AND PARASITE EXAM See Below [facility] Comment on above: Result Comment: OVA AND PARASITE EXAM No Parasites Seen This test can not identify the presence of Cryptosporidium, Cyclospora or Cystoisospora (order CRYSPO); Microsporidia (order MICSPO) or consider ordering STGIPI (molecular test to detect common infectious causes of diarrhea). A single negative test result does not rule out a parasitic infection. Due to intermittent shedding of parasites, it is recommended that three specimens collected over a 7 day period are submitted to improve detection sensitivity. SOURCE: Stool [facility] [address] [place] [address] Bo Lilly III, M.D. [id number] Performed By: #### 2 [id number] #### [place] [id number] C DIFF COMPLETEon 06-15-2025 C DIFF COMPLETE C DIFF COMPLETE 0{ C-DIFF TOXIN _NEGATIVE__ (NRL: NEGATIVE ) 06/15/25.1109.JLN. C-DIFF AG NEGATIVE INTERNAL NEG QC PASS INTERNAL POS QC PASS EXTERNAL QC DONE? YES INTERPRETATION: POSITIVE Ag,POSITIVE Tox = C. Diff is present & producing toxins POSITIVE Ag,NEGATIVE Tox = C. Diff is present NEGATICE Ag,NEGATICE Tox = C. Diff is not present A low percentage of specimens may test negative for antigen but positive for toxin. A fresh specimen should be resumbitted for retesting. [facility] Comment on above: Performed By: #### 2 95419 #### [address] [address] C-REACTIVE PROTEINon 025 CRP 0.67 mg/dl Normal 0.00 - 0.90 [facility] Comment on above: Performed By: #### 2 45524 #### [facility],[address] [place] [address] CBC + DIFFon 06-07-2025 Baso # 0.01 x10EE3/UL Normal 0.00 - 0.10 [facility] Comment on above: Performed By: #### 2 95427 #### [facility],[address] [place], [place] [id number] Basophils/100 WBC (Bld) 0.2 % Normal 0.0 - 2.0 [facility] Comment on above: Performed By: #### 2 66022 #### [facility],[address] [place] [address] CBC + DIFF Normal [facility] Comment on above: Result Comment: CBC- COMPLETE BLOOD COUNT Performed By: #### 2 18626 #### [facility],[address] [place] [address] EO # 0.28 x10EE3/UL Normal 0.00 - 0.50 [facility] Comment on above: Performed By: #### 2 18370 #### [facility],[address] [place] [address] 34556 Eosinophils/100 WBC (Bld) 4.3 % Normal 0.0 - 7.0 [facility] Comment on above: Performed By: #### 2 71543 #### [facility],[address] [place] [address] Erythrocyte distribution width (RBC) [Ratio] 15.9 % High 12.0 - 15.6 [facility] Comment on above: Performed By: #### 2 65491 #### [facility],[address] [place] [address] Hematocrit (Bld) [Volume fraction] 35.5 % Normal 34.0 - 46.0 [facility] Comment on above: Performed By: #### 2 10264 #### [facility],[address] [place] [address] 23911 Hemoglobin (Bld) [Mass/Vol] 11.7 g/dL Low 12.0 - 16.0 [facility] Comment on above: Performed By: #### 2 30688 #### [facility],[address] [place], [place] [id number] Lymph # 1.11 x10EE3/UL Normal 0.80 - 2.80 [facility] Comment on above: Performed By: #### 2 70195 #### [facility],[address] [place] [address] 04874 Lymphocytes/100 WBC (Bld) 17.3 % Low 20.0 - 45.0 [facility] Comment on above: Performed By: #### 2 26570 #### [facility],[address] [place], [place] [id number] MANUAL DIFF N/A Normal [facility] Comment on above: Performed By: #### 2 10877 #### [facility],[address] [place] [address] 74423 MCH (RBC) [Entitic mass] 27 pg Normal 27 - 33 [facility] Comment on above: Performed By: #### 2 49262 #### [facility],[address] [place] [address] 99125 MCHC 33 X10 3 Normal 32 - 36 [facility] Comment on above: Performed By: #### 2 84477 #### [facility],[address] [place] [address] 38427 MCV (RBC) [Entitic vol] 82 fL Normal 80 - 99 [facility] Comment on above: Performed By: #### 2 87509 #### [facility],[address] [place] [address] 82046 [place] # 0.69 x10EE3/UL Normal 0.20 - 1.00 [facility] Comment on above: Performed By: #### 2 33731 #### [facility],[address] [place] [address] 24252 MONOS % 10.7 % High 0.0 - 10.0 [facility] Comment on above: Performed By: #### 2 23500 #### [facility],[address] [place] [address] 55159 Morphology Khoi (Bld) [Interp] N/A Normal [facility] Comment on above: Performed By: #### 2 22234 #### [facility],[address] [place] [address] 47057 Neut # 4.31 x10EE3/UL Normal 1.50 - 7.10 [facility] Comment on above: Performed By: #### 2 49607 #### [facility],[address] [place] [address] 95308 Neutrophils/100 WBC (Bld) 67.4 % Normal 46.0 - 76.0 [facility] Comment on above: Performed By: #### 2 94101 #### [facility],[address] [place] [address] 09893 PLATELET 258 x10EE3/UL Normal 150 - 450 [facility] Comment on above: Performed By: #### 2 88521 #### [facility],[address] [place] [address] 34122 Platelet mean volume (Bld) [Entitic vol] 7.2 fL Normal 6.6 - 10.5 [facility] Comment on above: Result Comment: AUTO MATED DIFFERENTIAL Performed By: #### 2 19115 #### [facility],[address] [place] [address] 55136 RBC 4.33 x 10EE6/UL Normal 4.10 - 5.30 [facility] Comment on above: Performed By: #### 2 73650 #### [facility],[address] [place] [address] 14937 WBC 6.4 x 10EE3/UL Normal 4.5 - 10.8 [facility] Comment on above: Performed By: #### 2 80897 #### [facility],[address] [place] [address] 78690 CMP with eGFRon 06-07-2025 AGE 64 years Normal [facility] Comment on above: Performed By: #### 2 84590 #### [facility],[address] [place] [address] 52655 Albumin [Mass/Vol] 3.5 g/dL Normal 3.4 - 5.0 [facility] Comment on above: Performed By: #### 2 40618 #### [facility],[address] [place] [address] 76424 Albumin/Globulin [Mass ratio] 1.1 {ratio} Normal 0.9 - 1.6 [facility] Comment on above: Performed By: #### 2 28155 #### [facility],[address] [place] [address] 24502 ALK PHOS 23 U/L Low 46 - 116 [facility] Comment on above: Performed By: #### 2 02463 #### [facility],[address] [place] [address] 30234 ALT [Catalytic activity/Vol] 24 U/L Normal 16 - 63 [facility] Comment on above: Performed By: #### 2 36634 #### [facility],[address] [place] [address] 13866 Anion gap [Moles/Vol] 11 mmol/L Normal 10 - 20 [facility] Comment on above: Performed By: #### 2 22392 #### [facility],[address] [place] [address] 31205 AST [Catalytic activity/Vol] 25 U/L Normal 13 - 39 [facility] Comment on above: Performed By: #### 2 31467 #### [facility],[address] [place] [address] 30429 B/C RATIO 11 ratio Normal 0 - 30 [facility] Comment on above: Performed By: #### 2 65396 #### [facility],[address] [place] [address] 64860 Bilirubin [Mass/Vol] 0.5 mg/dL Normal 0.2 - 1.0 [facility] Comment on above: Performed By: #### 2 72130 #### [facility],[address] [place] [address] 49737 Calcium [Mass/Vol] 8.5 mg/dL Normal 8.5 - 10.1 [facility] Comment on above: Performed By: #### 2 19827 #### [facility],[address] [place] [address] 80633 Chloride [Moles/Vol] 105 mmol/L Normal 98 - 107 [facility] Comment on above: Performed By: #### 2 64451 #### [facility],[address] [place] [address] 28864 CMP with eGFR Normal [facility] Comment on above: Result Comment: COMP REHENSIVE METABOLIC PANEL Performed By: #### 2 78142 #### [facility],[address] [place] [address] 51715 CO2 [Moles/Vol] 28.2 mmol/L Normal 21.0 - 32.0 [facility] Comment on above: Performed By: #### 2 06549 #### [facility],[address] [place] [address] 64652 Creatinine [Mass/Vol] 0.64 mg/dL Normal 0.55 - 1.02 [facility] Comment on above: Performed By: #### 2 47783 #### [facility],[address] [place] [address] 90272 GFR/1.73 sq M.predicted among non-blacks MDRD (S/P/Bld) [Vol rate/Area] mL/min/{1.73_m2} Normal 60 - 999 [facility] Comment on above: Performed By: #### 2 56919 #### [facility],[address] [place] [address] 04847 Result Comment: ACCO RDING TO THE NATIONAL KIDNEY DISEASE EDUCATION PROGRAM(NKDE), A NORMAL eGFR IS A VALUE GREATER THAN OR EQUAL TO 60 ML/MIN/1.73 SQ METERS. CHRONIC KIDNEY DISEASE: <60mL/MIN/1.73 SQ METERS KIDNEY FAILURE: <15mL/MIN/1.73 SQ METERS THIS TEST SHOULD ONLY BE USED FOR PATIENTS 18 YEARS OF AGE AND OLDER. Globulin (S) [Mass/Vol] 3.3 g/dL Normal 1.5 - 3.8 [facility] Comment on above: Performed By: #### 2 34219 #### [address] [address] Glucose [Mass/Vol] 73 mg/dL Low 74 - 106 [facility] Comment on above: Performed By: #### 2 98806 #### [address] [address] Potassium [Moles/Vol] 3.9 mmol/L Normal 3.5 - 5.1 [facility] Comment on above: Performed By: #### 2 89318 #### [address] [address] Protein [Mass/Vol] 6.8 g/dL Normal 6.4 - 8.2 [facility] Comment on above: Performed By: #### 2 30851 #### [facility],[address] [place] [address] 25537 Sodium [Moles/Vol] 140 mmol/L Normal 136 - 145 [facility] Comment on above: Performed By: #### 2 38074 #### [address] [address] Urea nitrogen [Mass/Vol] 7 mg/dL Normal 7 - 18 [facility] Comment on above: Performed By: #### 2 39449 #### [facility],[address] [place] [address] 30513 SEDRATEon 08-04-2025 SEDRATE 20 mm/hr Normal 0 - 30 [facility] Comment on above: Performed By: #### 2 73616 #### [facility],[address] [place] [address] ABDOMEN/PELVIS Won 2024 CT ABDOMEN/PELVIS W [address] [address] Patient: ABBY DE LOS SANTOS Phone#: : 1960 Age: 64 Gender: F Pt. Type: Out Account: [id number] Location: [facility] Ordering: DESEAN James YANCEY Exam Date: 05/27/2025/14:54 Family Phys: RAKESH GLADYS Charge Code: [id number] Physician: Brooke Order #: [id number] Dose#: 18.20 mGy PROCEDURE: CT ABDOMEN/PELVIS WITH CONTRAST COMPARISON: [facility], CT, HI RES CHEST W/O CON, 04/30/2025, 8:14. [facility], CT, CHEST PE W CON, 05/12/2023, 3:07. INDICATIONS: lower abdom pain TECHNIQUE: After obtaining the patient's consent, CT images were created with non-ionic intravenous contrast and oral contrast material. All CT scans at this facility use dose modulation, iterative reconstruction, and/or weight based dosing when appropriate to reduce radiation dose to as low as reasonably achievable. IV CONTRAST: Omnipaque 350,80ml TOTAL DOSE: 18.20 CTDIvol(mGy) FINDINGS: LIVER: Normal. No enlargement, atrophy, abnormal density, or significant focal lesion. BILIARY: Gallbladder is present. PANCREAS: Normal. No lesion, fluid collection, ductal dilatation, or atrophy. SPLEEN: Normal. No enlargement or focal lesion. Splenule is present adjacent to the lower pole. KIDNEYS: Kidneys enhance and excrete contrast symmetrically. Hydronephrosis. Low- attenuation lesions throughout the kidneys, too small to characterize; five on the right and three on the left. ADRENALS: Normal. No mass or enlargement. AORTA/VASCULAR: No aortic aneurysm. RETROPERITONEUM: There are reactive. Aortic lymph nodes. BOWEL/MESENTERY: Oral contrast is present in the stomach, small and large bowel. Oral contrast reaches the hepatic flexure. There is moderate to large stool burden. The appendix is unremarkable in size it contains air. The perirectal fat is hazy and indistinct. There are few small perirectal lymph nodes. There is mild thickening of the rectal wall and sigmoid colon. There is thickening of a segment of the sigmoid colon, series 2, image 66 and series 6 Continued Report - Page 2 of 2 Patient: ABBY DE LOS SANTOS Phone#: : 1960 Age: 64 Gender: F Pt. Type: Out Account: [id number] Location: [facility] Ordering: FebruaryCOX MONETT Exam Date: 05/27/2025/14:54 Family Phys: RAKESH GRAHAM Charge Code: [id number] Physician: Brooke Order #: [id number] Dose#: 18.20 mGy image 77 to 72 which may represent diverticulitis versus colitis, cannot exclude underlying lesion. ABDOMINAL WALL: Small fat containing umbilical hernia URINARY BLADDER: Urinary bladder is partially filled. PELVIC NODES: Normal. No adenopathy. PELVIC ORGANS: Uterus is absent. No adnexal mass. BONES: Left hip arthroplasty streak artifact limits evaluation at the involved levels. Right hip degenerative change with large subchondral cysts in the femoral head and femoral head spurring. Multilevel disc height loss, specifically T12- L1, L1-2, L2-3, and L5-S1. Facet arthropathy in the lumbar spine. LUNG BASES: Multiple pleural cysts in the lung bases. Calcified granulomas in the lower lobes. Partially calcified nodules in the lower lobes. 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 The left a partially calcified nodule measures 1.2 x 0.7 cm. Largest right lower lobe imaged partially calcified nodule measures 2.2 x 1.5 cm, series 2, image 11, previously 1.6 x 1.2 cm. OTHER: Negative. CONCLUSION: 1. Thickening of the sigmoid colon to the rectum. Findings most concerning for proctocolitis; differential also includes diverticulitis though no focal inflamed diverticulum identified. 2. When the patient's acute symptoms have resolved recommend correlation with colorectal cancer screening as several non-specific perirectal lymph nodes are identified. 3. Multiple lung cysts and calcified and partially calcified pleural nodules. 4. Constipation Dictated by: Iliana Mathis MD on 05/27/2025 at 15:31 Approved by: Iliana Mathis MD on 05/27/2025 at 15:50 Normal [facility] CBC + DIFFon 05-24-2025 Baso # 0.02 x10EE3/UL Normal 0.00 - 0.10 [facility] Comment on above: Performed By: #### 2 94139 #### [facility],[address] [place] [address] Basophils/100 WBC (Bld) 0.3 % Normal 0.0 - 2.0 [facility] Comment on above: Performed By: #### 2 89352 #### [facility],[address] [place] [address] CBC + DIFF Normal [facility] Comment on above: Result Comment: CBC- COMPLETE BLOOD COUNT Performed By: #### 2 54964 #### [facility],[address] [place] [address] EO # 0.36 x10EE3/UL Normal 0.00 - 0.50 [facility] Comment on above: Performed By: #### 2 37708 #### [facility],[address] [place] [address] 74561 Eosinophils/100 WBC (Bld) 6.1 % Normal 0.0 - 7.0 [facility] Comment on above: Performed By: #### 2 67525 #### [facility],[address] [place], [place] [id number] Erythrocyte distribution width (RBC) [Ratio] 15.1 % Normal 12.0 - 15.6 [facility] Comment on above: Performed By: #### 2 57034 #### [facility],[address] [place] [address] Hematocrit (Bld) [Volume fraction] 37.3 % Normal 34.0 - 46.0 [facility] Comment on above: Performed By: #### 2 10604 #### [facility],[address] [place] [address] 32119 Hemoglobin (Bld) [Mass/Vol] 12.9 g/dL Normal 12.0 - 16.0 [facility] Comment on above: Performed By: #### 2 86167 #### [facility],[address] [place], [place] [address] Lymph # 0.94 x10EE3/UL Normal 0.80 - 2.80 [facility] Comment on above: Performed By: #### 2 68298 #### [facility],[address] [place], [place] [address] Lymphocytes/100 WBC (Bld) 15.8 % Low 20.0 - 45.0 [facility] Comment on above: Performed By: #### 2 05693 #### [facility],[address] [place], [place] [id number] MANUAL DIFF N/A Normal [facility] Comment on above: Performed By: #### 2 73855 #### [facility],[address] [place] [address] 23277 MCH (RBC) [Entitic mass] 28 pg Normal 27 - 33 [facility] Comment on above: Performed By: #### 2 77589 #### [facility],[address] [place] [address] 71757 MCHC 35 X10 3 Normal 32 - 36 [facility] Comment on above: Performed By: #### 2 99253 #### [facility],[address] [place] [address] 99337 MCV (RBC) [Entitic vol] 82 fL Normal 80 - 99 [facility] Comment on above: Performed By: #### 2 27535 #### [facility],[address] [place] [address] 88146 [place] # 0.60 x10EE3/UL Normal 0.20 - 1.00 [facility] Comment on above: Performed By: #### 2 55484 #### [facility],[address] [place] [address] 73607 MONOS % 10.1 % High 0.0 - 10.0 [facility] Comment on above: Performed By: #### 2 33442 #### [facility],[address] [place] [address] 06857 Morphology Khoi (Bld) [Interp] N/A Normal [facility] Comment on above: Performed By: #### 2 29130 #### [facility],[address] [place] [address] 63736 Neut # 4.04 x10EE3/UL Normal 1.50 - 7.10 [facility] Comment on above: Performed By: #### 2 35041 #### [facility],[address] [place] [address] 12773 Neutrophils/100 WBC (Bld) 67.7 % Normal 46.0 - 76.0 [facility] Comment on above: Performed By: #### 2 09690 #### [facility],[address] [place] [address] 63779 PLATELET 241 x10EE3/UL Normal 150 - 450 [facility] Comment on above: Performed By: #### 2 06994 #### [facility],[address] [place] [address] 90131 Platelet mean volume (Bld) [Entitic vol] 7.6 fL Normal 6.6 - 10.5 [facility] Comment on above: Result Comment: AUTO MATED DIFFERENTIAL Performed By: #### 2 25927 #### [facility],[address] [place] [address] 31630 RBC 4.56 x 10EE6/UL Normal 4.10 - 5.30 [facility] Comment on above: Performed By: #### 2 62478 #### [facility],[address] [place] [address] 91376 WBC 6.0 x 10EE3/UL Normal 4.5 - 10.8 [facility] Comment on above: Performed By: #### 2 79100 #### [facility],[address] [place] [address] 87777 CMP with eGFRon 05-24-2025 AGE 64 years Normal [facility] Comment on above: Performed By: #### 2 83877 #### [facility],[address] [place] [address] 12868 Albumin [Mass/Vol] 4.0 g/dL Normal 3.4 - 5.0 [facility] Comment on above: Performed By: #### 2 48364 #### [facility],[address] [place] [address] 68882 Albumin/Globulin [Mass ratio] 1.1 {ratio} Normal 0.9 - 1.6 [facility] Comment on above: Performed By: #### 2 68843 #### [facility],[address] [place] [address] 69432 ALK PHOS 36 U/L Low 46 - 116 [facility] Comment on above: Performed By: #### 2 57479 #### [facility],[address] [place] [address] 56631 ALT [Catalytic activity/Vol] 22 U/L Normal 16 - 63 [facility] Comment on above: Performed By: #### 2 45688 #### [facility],[address] [place] [address] 12361 Anion gap [Moles/Vol] 13 mmol/L Normal 10 - 20 [facility] Comment on above: Performed By: #### 2 34064 #### [facility],[address] [place] [address] 89525 AST [Catalytic activity/Vol] 20 U/L Normal 13 - 39 [facility] Comment on above: Performed By: #### 2 81771 #### [facility],[address] [place] [address] 54997 B/C RATIO 23 ratio Normal 0 - 30 [facility] Comment on above: Performed By: #### 2 64914 #### [facility],[address] [place] [address] 32359 Bilirubin [Mass/Vol] 0.6 mg/dL Normal 0.2 - 1.0 [facility] Comment on above: Performed By: #### 2 17130 #### [facility],[address] [place] [address] 65626 Calcium [Mass/Vol] 8.6 mg/dL Normal 8.5 - 10.1 [facility] Comment on above: Performed By: #### 2 94985 #### [facility],[address] [place], [place] [id number] Chloride [Moles/Vol] 107 mmol/L Normal 98 - 107 [facility] Comment on above: Performed By: #### 2 44963 #### [facility],[address] [place] [address] CMP with eGFR Normal [facility] Comment on above: Result Comment: COMP REHENSIVE METABOLIC PANEL Performed By: #### 2 19916 #### [facility],[address] [place], [place] [id number] CO2 [Moles/Vol] 27.3 mmol/L Normal 21.0 - 32.0 [facility] Comment on above: Performed By: #### 2 76594 #### [facility],[address] [place], [place] [id number] Creatinine [Mass/Vol] 0.60 mg/dL Normal 0.55 - 1.02 [facility] Comment on above: Performed By: #### 2 39831 #### [facility],[address] [place] [address] 96825 GFR/1.73 sq M.predicted among non-blacks MDRD (S/P/Bld) [Vol rate/Area] mL/min/{1.73_m2} Normal 60 - 999 [facility] Comment on above: Performed By: #### 2 01273 #### [facility],[address] [place] [address] Result Comment: ACCO RDING TO THE NATIONAL KIDNEY DISEASE EDUCATION PROGRAM(NKDE), A NORMAL eGFR IS A VALUE GREATER THAN OR EQUAL TO 60 ML/MIN/1.73 SQ METERS. CHRONIC KIDNEY DISEASE: <60mL/MIN/1.73 SQ METERS KIDNEY FAILURE: <15mL/MIN/1.73 SQ METERS THIS TEST SHOULD ONLY BE USED FOR PATIENTS 18 YEARS OF AGE AND OLDER. Globulin (S) [Mass/Vol] 3.6 g/dL Normal 1.5 - 3.8 [facility] Comment on above: Performed By: #### 2 52086 #### [place] [address] Glucose [Mass/Vol] 89 mg/dL Normal 74 - 106 [facility] Comment on above: Performed By: #### 2 59139 #### [place] [address] Potassium [Moles/Vol] 4.1 mmol/L Normal 3.5 - 5.1 [facility] Comment on above: Performed By: #### 2 37938 #### [facility],[address] [place], [place] [id number] Protein [Mass/Vol] 7.6 g/dL Normal 6.4 - 8.2 [facility] Comment on above: Performed By: #### 2 90938 #### [facility],[address] [place] [address] 81292 Sodium [Moles/Vol] 143 mmol/L Normal 136 - 145 [facility] Comment on above: Performed By: #### 2 95285 #### [address] [address] Urea nitrogen [Mass/Vol] 14 mg/dL Normal 7 - 18 [facility] Comment on above: Performed By: #### 2 11330 #### [place] [id number] LIPASEon 05-24-2025 Lipase [Catalytic activity/Vol] 29.0 U/L Normal 15.0 - 78.0 [facility] Comment on above: Result Comment: *PLE ASE NOTE THAT RANGES FOR LIPASE HAVE CHANGED OF 11/01/23 DUE TO AN ASSAY UPDATE BY THE [employer].THE NEW ASSAY RANGE IS 6-250 U/L, WITH A REFERENCE RANGE OF 16-77 U/L. Performed By: #### 2 16927 #### [facility],[address] [facility] [address] CBC-Complete Blood Cnt No Di ffon 05-03-2025 Erythrocyte distribution width (RBC) [Ratio] 14.6 % Normal 11.6-14.6 [facility] Comment on above: Performed By: #### L 100.0500, L503.6150 #### [facility] [address] [place], [address] Hematocrit (Bld) [Volume fraction] 39.9 % Normal 37-47 [facility] Comment on above: Performed By: #### L 100.0500, L503.6150 #### [facility] [address] [place], [address] Hemoglobin (Bld) [Mass/Vol] 12.7 g/dL Normal 12.0-15.0 [facility] Comment on above: Performed By: #### L 100.0500, L503.6150 #### [facility] [address] [place], [address] MCH (RBC) [Entitic mass] 27.0 pg Normal 27.0-32.0 [facility] Comment on above: Performed By: #### L 100.0500, L503.6150 #### [facility] [address] [place], [address] MCHC (RBC) [Mass/Vol] 31.8 g/dL Low 32-36 [facility] Comment on above: Performed By: #### L 100.0500, L503.6150 #### [facility] [address] [place], [address] MCV (RBC) [Entitic vol] 84.9 fL Normal 81-99 [facility] Comment on above: Performed By: #### L 100.0500, L503.6150 #### [facility] [address] [place], [address] Platelet mean volume (Bld) [Entitic vol] 9.9 fL Normal 6.2-12.0 [facility] Comment on above: Performed By: #### L 100.0500, L503.6150 #### [facility] [address] [place], [address] Platelets (Bld) [#/Vol] 278 10*3/uL Normal 150-450 [facility] Comment on above: Performed By: #### L 100.0500, L503.6150 #### [facility] [address] [place], [address] RBC (Bld) [#/Vol] 4.70 10*6/uL Normal 4.2-5.4 [facility] Comment on above: Performed By: #### L 100.0500, L503.6150 #### [facility] [address] [place], [address] RDW SD 45.5 fl High 35.1-43.9 [facility] Comment on above: Performed By: #### L 100.0500, L503.6150 #### [facility] [address] [place], [address] WBC (Bld) [#/Vol] 5.0 10*3/uL Normal 4.4-11.0 [facility] Comment on above: Performed By: #### L 100.0500, L503.6150 #### [facility] [address] [place], [address] Erythrocyte distribution wid th ratioOrdered By: Dilip Ruiz on 05-03-2025 Erythrocyte distribution width (RBC) [Ratio] 14.6 % 11.6-14.6 [facility] Erythrocyte distribution wid th standard deviationOrdered By: Dilip Ruiz on 05-03-2025 Erythrocyte distribution width (RBC) [Ratio] 45.5 fl High 35.1-43.9 [facility] Hematocrit Auto (Bld) [Volum e fraction]Ordered By: Dilip Ruiz on 05-03-2025 Hematocrit (Bld) [Volume fraction] 39.9 % 37-47 [facility] Hemoglobin measurementOrdere d By: Dilip Ruiz on 05-03-2025 Hemoglobin (Bld) [Mass/Vol] 12.7 g/dL 12.0-15.0 [facility] Ironon 05-03-2025 Iron [Mass/Vol] 40 ug/dL Low 50-170 [facility] Comment on above: Performed By: #### L 100.0500, L503.6150 #### [facility] [address] [place], [place], [id number] Iron measurement (mass/mass) Ordered By: Dilip Ruiz on 05-03-2025 Iron (Unsp spec) [Mass/Mass] 40 ug/dL Low 50-170 [facility] MCV (mean corpuscular volume ) determinationOrdered By: Dilip Ruiz on 05-03-2025 MCV (RBC) [Entitic vol] 84.9 fL 81-99 [facility] Mean corpuscular hemoglobin (MCH) determinationOrdered By: Dilip Ruiz on 05-03-2025 MCH (RBC) [Entitic mass] 27.0 pg 27.0-32.0 [facility] Mean corpuscular hemoglobin concentration (MCHC) determinationOrdered By: Dilip Ruiz on 05-03-2025 MCHC (RBC) [Mass/Vol] 31.8 g/dL Low 32-36 [facility] Mean platelet volume determi nationOrdered By: Dilip Ruiz on 05-03-2025 Platelet mean volume (Bld) [Entitic vol] 9.9 fL 6.2-12.0 [facility] Platelet countOrdered By: Kandy rdzgarrett Pritchettjocelin on 05-03-2025 Platelets (Bld) [#/Vol] 278 10*3/uL 150-450 [facility] RBC Auto (Bld) [#/Vol]Ordere d By: Dilip Aron on 05-03-2025 RBC (Bld) [#/Vol] 4.70 10*6/uL 4.2-5.4 [facility] White blood cell (WBC) count Ordered By: Dilip Ruiz on 05-03-2025 WBC (Bld) [#/Vol] 5.0 10*3/uL 4.4-11.0 [facility] CT HI RES CHEST W/O CONTRAST on 04-30-2025 CT HI RES CHEST W/O CONTRAST [place] [id number] Patient: ABBY DE LOS SANTOS Phone#: : 1960 Age: 64 Gender: F Pt. Type: Out Account: [id number] Location: 052 Ordering: CHINEDU GARCIA Exam Date: 04/30/2025/8:14 Family Phys: RAKESH GRAHAM Charge Code: 480946 Physician: Brooke Order #: [id number] Dose#: 23.80 PROCEDURE: CT HI RES CHEST [...] 64 Gender: F Pt. Type: Out Account: [id number] Location: [facility] Ordering: CHINEDU GARCIA Exam Date: 04/30/2025/8:14 Family Phys: RAKESH GLADYS Charge Code: 571002 Physician: Brooke Order #: [id number] Dose#: 23.80 Approved by: Miriam Albright MD on 04/30/2025 at 14:20 Normal [facility] BUN/CREAT eGFR (NON-)on 01-06-2025 AGE 64 years Normal [facility] Comment on above: Performed By: #### 2 29496 #### [place] [address] BUN/CREAT eGFR (NON-) Normal [facility] Comment on above: Result Comment: BUN/ CREATININE eGFR NON-) Performed By: #### 2 32098 #### [facility],[address] [place] [address] Creatinine [Mass/Vol] 0.58 mg/dL Normal 0.55 - 1.02 [facility] Comment on above: Performed By: #### 2 94534 #### [place] [id number] GFR/1.73 sq M.predicted among non-blacks MDRD (S/P/Bld) [Vol rate/Area] mL/min/{1.73_m2} Normal 60 - 999 [facility] Comment on above: Result Comment: [...] 18 AND OLDER. Performed By: #### 2 70126 #### [facility],[address] [place] [address] Urea nitrogen [Mass/Vol] 15 mg/dL Normal 7 - 18 [facility] Comment on above: Performed By: #### 2 44210 #### [facility],[address] [place] [address] C-REACTIVE PROTEINon 025 CRP 0.43 mg/dl Normal 0.00 - 0.90 [facility] Comment on above: Performed By: #### 2 00175 #### [facility],[address] [place] [address] CBC + DIFFon 01-06-2025 Baso # 0.01 x10EE3/UL Normal 0.00 - 0.10 [facility] Comment on above: Performed By: #### 2 07584 #### [address] [address] Basophils/100 WBC (Bld) 0.2 % Normal 0.0 - 2.0 [facility] Comment on above: Performed By: #### 2 09219 #### [facility],[address] [place] [address] CBC + DIFF Normal [facility] Comment on above: Result Comment: CBC- COMPLETE BLOOD COUNT Performed By: #### 2 93399 #### [address] [address] EO # 0.10 x10EE3/UL Normal 0.00 - 0.50 [facility] Comment on above: Performed By: #### 2 13410 #### [facility],[address] [place] [address] Eosinophils/100 WBC (Bld) 2.6 % Normal 0.0 - 7.0 [facility] Comment on above: Performed By: #### 2 27512 #### [facility],[address] [place] [address] Erythrocyte distribution width (RBC) [Ratio] 15.7 % High 12.0 - 15.6 [facility] Comment on above: Performed By: #### 2 15940 #### [facility],[address] [place] [address] Hematocrit (Bld) [Volume fraction] 37.5 % Normal 34.0 - 46.0 [facility] Comment on above: Performed By: #### 2 95901 #### [facility],[address] [place] [address] Hemoglobin (Bld) [Mass/Vol] 13.1 g/dL Normal 12.0 - 16.0 [facility] Comment on above: Performed By: #### 2 36710 #### [facility],[address] [place], [place] [id number] Lymph # 0.78 x10EE3/UL Low 0.80 - 2.80 [facility] Comment on above: Performed By: #### 2 68176 #### [facility],[address] [place], [place] [id number] Lymphocytes/100 WBC (Bld) 20.5 % Normal 20.0 - 45.0 [facility] Comment on above: Performed By: #### 2 01544 #### [facility],[address] [place], [place] [id number] MANUAL DIFF N/A Normal [facility] Comment on above: Performed By: #### 2 54216 #### [facility],[address] [place], [place] [id number] MCH (RBC) [Entitic mass] 29 pg Normal 27 - 33 [facility] Comment on above: Performed By: #### 2 58744 #### [facility],[address] [place] [address] MCHC 35 X10 3 Normal 32 - 36 [facility] Comment on above: Performed By: #### 2 61195 #### [facility],[address] [place] [address] MCV (RBC) [Entitic vol] 83 fL Normal 80 - 99 [facility] Comment on above: Performed By: #### 2 63330 #### [facility],[address] [place] [address] [place] # 0.31 x10EE3/UL Normal 0.20 - 1.00 [facility] Comment on above: Performed By: #### 2 99354 #### [facility],[address] [place] [address]474 MONOS % 8.1 % Normal 0.0 - 10.0 [facility] Comment on above: Performed By: #### 2 12191 #### [facility],[address] [place] [address] 64019 Morphology Khoi (Bld) [Interp] N/A Normal [facility] Comment on above: Performed By: #### 2 16297 #### [facility],[address] [place] [address] 99232 Neut # 2.61 x10EE3/UL Normal 1.50 - 7.10 [facility] Comment on above: Performed By: #### 2 84941 #### [facility],[address] [place] [address]48[address] Neutrophils/100 WBC (Bld) 68.6 % Normal 46.0 - 76.0 [facility] Comment on above: Performed By: #### 2 90362 #### [facility],[address] [place] [address]0002 PLATELET 266 x10EE3/UL Normal 150 - 450 [facility] Comment on above: Performed By: #### 2 73014 #### [facility],[address] [place], [place] [id number] Platelet mean volume (Bld) [Entitic vol] 8.3 fL Normal 6.6 - 10.5 [facility] Comment on above: Result Comment: AUTO MATED DIFFERENTIAL Performed By: #### 2 22039 #### [facility],[address] [place] [address] RBC 4.53 x 10EE6/UL Normal 4.10 - 5.30 [facility] Comment on above: Performed By: #### 2 34373 #### [facility],[address] [place], [place] [id number] WBC 3.8 x 10EE3/UL Low 4.5 - 10.8 [facility] Comment on above: Performed By: #### 2 93101 #### [facility],[address] [place] [address] SEDRATEon 01-06-2025 SEDRATE 6 mm/hr Normal 0 - 30 [facility] Comment on above: Performed By: #### 2 16275 #### [facility],[address] [place], [place] [id number] SGOT (AST)on 01-06-2025 AST [Catalytic activity/Vol] 22 U/L Normal 13 - 39 [facility] Comment on above: Performed By: #### 2 29223 #### [facility],[address] [place], [place] [id number] SGPT (ALT)on 01-06-2025 ALT [Catalytic activity/Vol] 24 U/L Normal 16 - 63 [facility] Comment on above: Performed By: #### 2 28322 #### [facility],[address] [place] [address] Administrative Officer Office Visit Reporton 09-02-2024 Administrative Officer Office Visit Report [facility]'[address], [address] [place] [id number] OFFICE VISIT Date of Service: 10/19/24 MR#: [id number] Acct: [id number] Name: ABBY DE LOS SANTOS Rep #: [id number] : 1960 Provider: BRITTNEY Roldan Age/Sex: 63/F Location: [facility] Status: Signed Intake Vital Signs 10/19/24 07:58 Height 5 ft 5 in Weight: 186 lb BMI 30.9 BP 132/81 H 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 Ruiz. Other preventative health care screenings: PCP: Dr. [...] nourished O (more content not included)... Normal [facility] CBC + DIFFon 08-19-2024 Baso # 0.02 x10EE3/UL Normal 0.00 - 0.10 [facility] Comment on above: Performed By: #### 2 90455 #### [facility],[address] [place] [address] Basophils/100 WBC (Bld) 0.5 % Normal 0.0 - 2.0 [facility] Comment on above: Performed By: #### 2 62328 #### [facility],[address] [place] [address] CBC + DIFF Normal [facility] Comment on above: Result Comment: CBC- COMPLETE BLOOD COUNT Performed By: #### 2 30416 #### [facility],[address] [place] [address] EO # 0.05 x10EE3/UL Normal 0.00 - 0.50 [facility] Comment on above: Performed By: #### 2 43985 #### [facility],[address] [place] [address] Eosinophils/100 WBC (Bld) 1.5 % Normal 0.0 - 7.0 [facility] Comment on above: Performed By: #### 2 37742 #### [facility],[address] [place] [address] Erythrocyte distribution width (RBC) [Ratio] 17.9 % High 12.0 - 15.6 [facility] Comment on above: Performed By: #### 2 68219 #### [facility],[address],[place] [address] Hematocrit (Bld) [Volume fraction] 38.5 % Normal 34.0 - 46.0 [facility] Comment on above: Performed By: #### 2 60779 #### [facility],[address] [place], [place] [id number] Hemoglobin (Bld) [Mass/Vol] 12.3 g/dL Normal 12.0 - 16.0 [facility] Comment on above: Performed By: #### 2 29480 #### [facility],[address] [place] [address] Lymph # 0.85 x10EE3/UL Normal 0.80 - 2.80 [facility] Comment on above: Performed By: #### 2 47132 #### [facility],[address] [place], [place] [id number] Lymphocytes/100 WBC (Bld) 23.7 % Normal 20.0 - 45.0 [facility] Comment on above: Performed By: #### 2 37583 #### [facility],[address] [place] [address] MANUAL DIFF N/A Normal [facility] Comment on above: Performed By: #### 2 16493 #### [facility],[address] [place] [address] MCH (RBC) [Entitic mass] 25 pg Low 27 - 33 [facility] Comment on above: Performed By: #### 2 03727 #### [facility],[address] [place] [address] MCHC 32 X10 3 Normal 32 - 36 [facility] Comment on above: Performed By: #### 2 06446 #### [facility],[address] [place] [address] MCV (RBC) [Entitic vol] 79 fL Low 80 - 99 [facility] Comment on above: Performed By: #### 2 88286 #### [facility],[address] [place], [place] [id number] [place] # 0.33 x10EE3/UL Normal 0.20 - 1.00 [facility] Comment on above: Performed By: #### 2 57710 #### [facility],[address] [place] [address] MONOS % 9.3 % Normal 0.0 - 10.0 [facility] Comment on above: Performed By: #### 2 78772 #### [facility],[address] [place] [address] Morphology Khoi (Bld) [Interp] N/A Normal [facility] Comment on above: Performed By: #### 2 16752 #### [facility],[address] [place] [address] Neut # 2.35 x10EE3/UL Normal 1.50 - 7.10 [facility] Comment on above: Performed By: #### 2 44346 #### [facility],[address] [place] [address] Neutrophils/100 WBC (Bld) 65.1 % Normal 46.0 - 76.0 [facility] Comment on above: Performed By: #### 2 35067 #### [facility],[address] [place] [address] PLATELET 284 x10EE3/UL Normal 150 - 450 [facility] Comment on above: Performed By: #### 2 87666 #### [facility],[address] [place] [address] Platelet mean volume (Bld) [Entitic vol] 8.3 fL Normal 6.6 - 10.5 [facility] Comment on above: Result Comment: AUTO MATED DIFFERENTIAL Performed By: #### 2 30470 #### [facility],[address] [place] [address] RBC 4.85 x 10EE6/UL Normal 4.10 - 5.30 [facility] Comment on above: Performed By: #### 2 93089 #### [facility],[address] [place] [address] WBC 3.6 x 10EE3/UL Low 4.5 - 10.8 [facility] Comment on above: Performed By: #### 2 18095 #### [facility],[address] [place] [address] FERRITINon 08-19-2024 Ferritin [Mass/Vol] 21 ng/mL Normal 8 - 388 [facility] [facility] Comment on above: Performed By: #### 2 [id number] #### [facility],[address] [place] [address] IRON AND TIBCon 08-19-2024 %SATURATION 10 % Normal [facility] Comment on above: Performed By: #### 2 83843 #### [facility],[address] [place] [address]28 Iron [Mass/Vol] 43 ug/dL Low 50 - 170 [facility] Comment on above: Performed By: #### 2 18374 #### [facility],[address] [place] [address] 30746 TIBC 442 ug/dl Normal 250 - 450 [facility] Comment on above: Performed By: #### 2 41093 #### [facility],[address] [place] [address]115 UIBC 399 ug/dL High 155 - 355 [facility] Comment on above: Performed By: #### 2 16830 #### [facility],[address] [place] [address] 19163 BUN/CREAT eGFR (NON-)on 07-07-2024 AGE 63 years Normal [facility] Comment on above: Performed By: #### 2 06786 #### [facility],[address] [place] [address]385 BUN/CREAT eGFR (NON-) Normal [facility] Comment on above: Result Comment: BUN/ CREATININE eGFR NON-) Performed By: #### 2 88990 #### [facility],[address] [place] [address] 82052 Creatinine [Mass/Vol] 0.64 mg/dL Normal 0.55 - 1.02 [facility] Comment on above: Performed By: #### 2 39398 #### [address] [address] GFR/1.73 sq M.predicted among non-blacks MDRD (S/P/Bld) [Vol rate/Area] mL/min/{1.73_m2} Normal 60 - 999 [facility] Comment on above: Result Comment: [...] 18 AND OLDER. Performed By: #### 2 58284 #### [address] [address] Urea nitrogen [Mass/Vol] 14 mg/dL Normal 7 - 18 [facility] Comment on above: Performed By: #### 2 23097 #### [address] [address] C-REACTIVE PROTEINon 024 CRP 0.92 mg/dl High 0.00 - 0.90 [facility] Comment on above: Performed By: #### 2 21650 #### [facility],[address] [place] [address] 83187 CBC + DIFFon 07-07-2024 Baso # 0.02 x10EE3/UL Normal 0.00 - 0.10 [facility] Comment on above: Performed By: #### 2 82019 #### [address] [address] Basophils/100 WBC (Bld) 0.5 % Normal 0.0 - 2.0 [facility] Comment on above: Performed By: #### 2 45231 #### [facility],[address] [place] [address] CBC + DIFF Normal [facility] Comment on above: Result Comment: CBC- COMPLETE BLOOD COUNT Performed By: #### 2 42791 #### [facility],[address] [place] [address] EO # 0.07 x10EE3/UL Normal 0.00 - 0.50 [facility] Comment on above: Performed By: #### 2 49796 #### [facility],[address] [place] [address] Eosinophils/100 WBC (Bld) 1.4 % Normal 0.0 - 7.0 [facility] Comment on above: Performed By: #### 2 50129 #### [facility],[address] [place] [address] Erythrocyte distribution width (RBC) [Ratio] 16.6 % High 12.0 - 15.6 [facility] Comment on above: Performed By: #### 2 17792 #### [facility],[address] [place] [address] Hematocrit (Bld) [Volume fraction] 38.1 % Normal 34.0 - 46.0 [facility] Comment on above: Performed By: #### 2 06366 #### [facility],[address] [place] [address] Hemoglobin (Bld) [Mass/Vol] 12.4 g/dL Normal 12.0 - 16.0 [facility] Comment on above: Performed By: #### 2 84376 #### [facility],[address] [place] [address] Lymph # 1.03 x10EE3/UL Normal 0.80 - 2.80 [facility] Comment on above: Performed By: #### 2 94159 #### [facility],[address] [place] [address] Lymphocytes/100 WBC (Bld) 21.1 % Normal 20.0 - 45.0 [facility] Comment on above: Performed By: #### 2 30234 #### [facility],[address] [place] [address] MANUAL DIFF N/A Normal [facility] Comment on above: Performed By: #### 2 42605 #### [facility],[address] [place] [address] MCH (RBC) [Entitic mass] 25 pg Low 27 - 33 [facility] Comment on above: Performed By: #### 2 27042 #### [facility],[address] [place] [address] MCHC 33 X10 3 Normal 32 - 36 [facility] Comment on above: Performed By: #### 2 34770 #### [facility],[address] [place] [address] MCV (RBC) [Entitic vol] 76 fL Low 80 - 99 [facility] Comment on above: Performed By: #### 2 21828 #### [facility],[address] [place] [address] [place] # 0.35 x10EE3/UL Normal 0.20 - 1.00 [facility] Comment on above: Performed By: #### 2 97559 #### [facility],[address] [place] [address] MONOS % 7.0 % Normal 0.0 - 10.0 [facility] Comment on above: Performed By: #### 2 67558 #### [facility],[address] [place], [place] [address] Morphology Khoi (Bld) [Interp] N/A Normal [facility] Comment on above: Performed By: #### 2 89342 #### [facility],[address] [place] [address] Neut # 3.44 x10EE3/UL Normal 1.50 - 7.10 [facility] Comment on above: Performed By: #### 2 03860 #### [facility],[address] [place] [address] Neutrophils/100 WBC (Bld) 70.1 % Normal 46.0 - 76.0 [facility] Comment on above: Performed By: #### 2 02770 #### [facility],[address] [place] [address] PLATELET 294 x10EE3/UL Normal 150 - 450 [facility] Comment on above: Performed By: #### 2 08023 #### [facility],[address] [place] [address] Platelet mean volume (Bld) [Entitic vol] 8.2 fL Normal 6.6 - 10.5 [facility] Comment on above: Result Comment: AUTO MATED DIFFERENTIAL Performed By: #### 2 09227 #### [facility],[address] [place] [address] RBC 5.04 x 10EE6/UL Normal 4.10 - 5.30 [facility] Comment on above: Performed By: #### 2 76711 #### [facility],[address] [place] [address] WBC 4.9 x 10EE3/UL Normal 4.5 - 10.8 [facility] Comment on above: Performed By: #### 2 56791 #### [facility],[address] [place] [address] SEDRATEon 07-07-2024 SEDRATE 7 mm/hr Normal 0 - 30 [facility] Comment on above: Performed By: #### 2 72604 #### [facility],[address] [place] [address] SGOT (AST)on 07-07-2024 AST [Catalytic activity/Vol] 21 U/L Normal 13 - 39 [facility] Comment on above: Performed By: #### 2 05948 #### [facility],[address] [place] [address] SGPT (ALT)on 07-07-2024 ALT [Catalytic activity/Vol] 18 U/L Normal 16 - 63 [facility] Comment on above: Performed By: #### 2 14604 #### [facility],[address] [place] [address] .Auto Diffon 06-12-2023 Basophil, Absolute 0.0 10 3/mcL Normal 0.0-0.2 [facility] ([place] Comment on above: Performed By: #### A DIFF, ANEU, BMP, CBC, GFR #### [address] [address] Basophils/100 WBC (Bld) 0.1 % Normal 0.0-2.5 A [facility] ([place] Comment on above: Performed By: #### A DIFF, ANEU, BMP, CBC, GFR #### [address] [address] Eosinophil, Absolute 0.0 10 3/mcL Normal 0.0-0.4 [facility] ([place] Comment on above: Performed By: #### A DIFF, ANEU, BMP, CBC, GFR #### [address] [address] Eosinophils/100 WBC (Bld) 0.0 % Normal 0.0-7.0 [facility] ([place] Comment on above: Performed By: #### A DIFF, ANEU, BMP, CBC, GFR #### [address] [address] Lymphocyte, Absolute 0.6 10 3/mcL Low 0.8-3.9 [facility] ([place] Comment on above: Performed By: #### A DIFF, ANEU, BMP, CBC, GFR #### [address] [address] Lymphocytes/100 WBC (Bld) 6.7 % Low 10.0-50.0 [facility] ([place] Comment on above: Performed By: #### A DIFF, ANEU, BMP, CBC, GFR #### [address] [address] Monocyte, Absolute 0.5 10 3/mcL Normal 0.2-1.0 [facility] ([place] Comment on above: Performed By: #### A DIFF, ANEU, BMP, CBC, GFR #### [address] [address] Monocytes/100 WBC (Bld) 6.2 % Normal 1.7-13.0 [facility] ([place] Comment on above: Performed By: #### A DIFF, ANEU, BMP, CBC, GFR #### [address] [address] Neutrophils/100 WBC (Bld) 87.0 % High 37.0-80.0 [facility] ([place] Comment on above: Performed By: #### A DIFF, ANEU, BMP, CBC, GFR #### [address] [address] .GFRon 06-12-2023 GFR Non- 86 ml/min/1.73sqm Normal [facility] ([place] Comment on above: Result Comment: GFR Population [...] A DIFF, ANEU, BMP, CBC, GFR #### [address] [address] GFR 104 ml/min/1.73sqm Normal [facility] ([place] Comment on above: Result Comment: GFR Population [...] A DIFF, ANEU, BMP, CBC, GFR #### [address] [address] .NEUABSon 06-12-2023 Neutrophil, Absolute 7.5 10 3/mcL High 2.9-6.2 [facility] ([place] Comment on above: Performed By: #### A DIFF, ANEU, BMP, CBC, GFR #### [address] [address] BMPon 06-12-2023 BUN/Creatinine Ratio 14 ratio Normal 7-27 [facility] ([place] Comment on above: Performed By: #### A DIFF, ANEU, BMP, CBC, GFR #### [address] [address] Calcium [Mass/Vol] 8.3 mg/dL Low 8.4-10.2 [facility] ([place] Comment on above: Performed By: #### A DIFF, ANEU, BMP, CBC, GFR #### [address] [address] Chloride [Moles/Vol] 106 mmol/L Normal 98-107 [facility] ([place] Comment on above: Performed By: #### A DIFF, ANEU, BMP, CBC, GFR #### [address] [address] CO2 [Moles/Vol] 30 mmol/L Normal 23-31 [facility] ([place] Comment on above: Performed By: #### A DIFF, ANEU, BMP, CBC, GFR #### [address] [address] Creatinine [Mass/Vol] 0.69 mg/dL Normal 0.55-1.02 [facility] ([place] Comment on above: Performed By: #### A DIFF, ANEU, BMP, CBC, GFR #### [address] [address] Electrolyte Balance 5.0 mEq/L Normal 4.0-15.0 [facility] ([place] Comment on above: Performed By: #### A DIFF, ANEU, BMP, CBC, GFR #### [address] [address] Glucose [Mass/Vol] 111 mg/dL Normal 80-115 [facility] ([place] Comment on above: Performed By: #### A DIFF, ANEU, BMP, CBC, GFR #### [address] [address] Potassium [Moles/Vol] 5.5 mmol/L High 3.5-5.1 [facility] ([place] Comment on above: Performed By: #### A DIFF, ANEU, BMP, CBC, GFR #### [address] [address] Sodium [Moles/Vol] 141 mmol/L Normal 136-145 [facility] ([place] Comment on above: Performed By: #### A DIFF, ANEU, BMP, CBC, GFR #### [address] [address] Urea nitrogen [Mass/Vol] 10 mg/dL Normal 7-18 [facility] ([place] Comment on above: Performed By: #### A DIFF, ANEU, BMP, CBC, GFR #### [address] [address] CBCon 06-12-2023 Erythrocyte distribution width (RBC) [Ratio] 15.8 % High 11.5-14.5 [facility] ([place] Comment on above: Performed By: #### A DIFF, ANEU, BMP, CBC, GFR #### [address] [address] Hematocrit (Bld) [Volume fraction] 34.1 % Low 37.0-47.0 [facility] ([place] Comment on above: Performed By: #### A DIFF, ANEU, BMP, CBC, GFR #### [address] [address] Hgb 11.2 G/dL Low 12.0-16.0 [facility] ([place] Comment on above: Performed By: #### A DIFF, ANEU, BMP, CBC, GFR #### [address] [address] MCH (RBC) [Entitic mass] 26.9 pg Low 27.0-31.2 [facility] ([place] Comment on above: Performed By: #### A DIFF, ANEU, BMP, CBC, GFR #### [place] [address] MCHC 32.9 G/dL Low 33.0-37.0 [facility] ([place] Comment on above: Performed By: #### A DIFF, ANEU, BMP, CBC, GFR #### [place] [address]347 MCV (RBC) [Entitic vol] 81.6 fL Normal 80.0-94.0 A [facility] ([place] Comment on above: Performed By: #### A DIFF, ANEU, BMP, CBC, GFR #### [address] [address] Platelet 220 10 3/mcL Normal 130-400 [facility] ([place] Comment on above: Performed By: #### A DIFF, ANEU, BMP, CBC, GFR #### [address] [address] Platelet mean volume (Bld) [Entitic vol] 8.3 fL Normal 7.4-10.4 [facility] ([place] Comment on above: Performed By: #### A DIFF, ANEU, BMP, CBC, GFR #### [place] [address]347 RBC 4.18 10 6/mcL Low 4.20-5.40 [facility] ([place] Comment on above: Performed By: #### A DIFF, ANEU, BMP, CBC, GFR #### [place] [address] [place], [place] [address] WBC 8.7 10 3/mcL Normal 4.6-10.8 [facility] ([place] Comment on above: Performed By: #### A DIFF, ANEU, BMP, CBC, GFR #### [address] [place] [address] [place], [place] [address] LABORATORYOrdered By: SYSTEM SYSTEM on 06-12-2023 Basophil, [...] not reported on this accession number. Normal [facility] ([place] Gel ABOon 06-11-2023 ABO/Rh Interp Positive Invalid Interpretation Code [facility] ([place] Comment on above: Performed By: #### A JOCELYNN ENGLISH ####[address] [place], [place] [address] Gel ABSon 06-11-2023 Antibody Screen Gel Negative Normal [facility] ([place] Comment on above: Performed By: #### A JOCELYNN ENGLISH ####[address] [place], [place] [address] LABORATORYOrdered By: Hermilo Ford on 06-11-2023 ABO/Rh Interp Positive Invalid Interpretation Code AO BB SS Antibody Screen Gel Negative [facility]SC (06/11/23 8:47 AM) Invalid Interpretation Code AO BB SS No Panel Informationon 06-11 AFS Acid Fast Smear from Concentrated Specimen: Negative [facility] Work Phone: Culture Tissue No growth to date [facility] Work Phone: FUNSM No fungal elements observed by calcofluor white stain. [facility] Work Phone: GS 2+ White Blood Cells No organisms seen. [facility] Work Phone: AFS Acid Fast Smear from Concentrated Specimen: Negative [facility] Work Phone: Culture Tissue No growth to date [facility] Work Phone: FUNSM No fungal elements observed by calcofluor white stain. [facility] Work Phone: GS 2+ Polymorphonuclear cells No organisms seen. [facility] Work Phone: AFS Acid Fast Smear from Concentrated Specimen: Negative [facility] Work Phone: Culture Tissue No growth to date [facility] Work Phone: FUNSM No fungal elements observed by calcofluor white stain. [facility] Work Phone: GS 2+ White Blood Cells No organisms seen. [facility] Work Phone: XR HIP LEFT W/PELVIS 4 VIEWS on [...] Date: 06/11/2023 2:46:00 PM Ordering Provider: LAUREL Cates [facility] ([place] XR CHEST 2 VIEWSon 3 XR CHEST [...] Date: 05/23/2023 4:28:47 PM Ordering Provider: LAUREL Cates [facility] ([place]) .Auto Diffon 05-22-2023 Basophil, Absolute 0.0 10 3/mcL Normal 0.0-0.2 [facility] ([place] Comment on above: Performed By: #### A BOG, ADIFF, GFR, ANEU, CBC, BMP, ALB, ANSG ####[address] [address] [place], [place] [address] Basophils/100 WBC (Bld) 0.6 % Normal 0.0-2.5 A [facility] ([place] Comment on above: Performed By: #### A BOG, ADIFF, GFR, ANEU, CBC, BMP, ALB, ANSG ####[address] [place], [place] [address] Eosinophil, Absolute 0.1 10 3/mcL Normal 0.0-0.4 [facility] ([place] Comment on above: Performed By: #### A BOG, ADIFF, GFR, ANEU, CBC, BMP, ALB, ANSG ####[address] [place], [place] [address] Eosinophils/100 WBC (Bld) 3.0 % Normal 0.0-7.0 [facility] ([place] Comment on above: Performed By: #### A BOG, ADIFF, GFR, ANEU, CBC, BMP, ALB, ANSG ####[address] [place], [place] [address] Lymphocyte, Absolute 0.9 10 3/mcL Normal 0.8-3.9 [facility] ([place] Comment on above: Performed By: #### A BOG, ADIFF, GFR, ANEU, CBC, BMP, ALB, ANSG ####[address] [place], [place] [address] Lymphocytes/100 WBC (Bld) 20.7 % Normal 10.0-50.0 [facility] ([place] Comment on above: Performed By: #### A BOG, ADIFF, GFR, ANEU, CBC, BMP, ALB, ANSG ####[address] [place], [place] [address] Monocyte, Absolute 0.4 10 3/mcL Normal 0.2-1.0 [facility] ([place] Comment on above: Performed By: #### A BOG, ADIFF, GFR, ANEU, CBC, BMP, ALB, ANSG ####[address] [place], [place] [address] Monocytes/100 WBC (Bld) 8.3 % Normal 1.7-13.0 [facility] ([place] Comment on above: Performed By: #### A BOG, ADIFF, GFR, ANEU, CBC, BMP, ALB, ANSG ####[address] [place], [place] [address] Neutrophils/100 WBC (Bld) 67.4 % Normal 37.0-80.0 [facility] ([place] Comment on above: Performed By: #### A BOG, ADIFF, GFR, ANEU, CBC, BMP, ALB, ANSG ####[address] [place], [place] [address] .GFRon 05-22-2023 GFR 108 ml/min/1.73sqm Normal [facility] ([place] Comment on above: Result Comment: GFR Population [...] ADIFF, GFR, ANEU, CBC, BMP, ALB, ANSG ####[address] [place], [place] [address] GFR Non- 89 ml/min/1.73sqm Normal [facility] ([place] Comment on above: Result Comment: GFR Population [...] ADIFF, GFR, ANEU, CBC, BMP, ALB, ANSG ####[place] [address] [place], [place] [address] .NEUABSon 05-22-2023 Neutrophil, Absolute 3.0 10 3/mcL Normal 2.9-6.2 [facility] ([place] Comment on above: Performed By: #### A BOG, ADIFF, GFR, ANEU, CBC, BMP, ALB, ANSG ####[address] [place], [place] [address] ALBon 05-22-2023 Albumin Level 4.3 G/dL Normal 3.4-4.8 [facility] ([place] Comment on above: Performed By: #### A BOG, ADIFF, GFR, ANEU, CBC, BMP, ALB, ANSG ####[address] [place], [place] [address] BMPon 05-22-2023 BUN/Creatinine Ratio 27 ratio Normal 7-27 [facility] ([place] Comment on above: Performed By: #### A BOG, ADIFF, GFR, ANEU, CBC, BMP, ALB, ANSG ####[address] [place], [place] [address] Calcium [Mass/Vol] 9.3 mg/dL Normal 8.4-10.2 [facility] ([place] Comment on above: Performed By: #### A BOG, ADIFF, GFR, ANEU, CBC, BMP, ALB, ANSG ####[address] [place], [place] [address] Chloride [Moles/Vol] 104 mmol/L Normal 98-107 [facility] ([place] Comment on above: Performed By: #### A BOG, ADIFF, GFR, ANEU, CBC, BMP, ALB, ANSG ####[place] [address] [place], [place] [address] CO2 [Moles/Vol] 28 mmol/L Normal 23-31 [facility] ([place] Comment on above: Performed By: #### A BOG, ADIFF, GFR, ANEU, CBC, BMP, ALB, ANSG ####[place] [address] [place], [place] [address] Creatinine [Mass/Vol] 0.67 mg/dL Normal 0.55-1.02 [facility] ([place] Comment on above: Performed By: #### A BOG, ADIFF, GFR, ANEU, CBC, BMP, ALB, ANSG ####[address] [place], [place] [address] Electrolyte Balance 9.0 mEq/L Normal 4.0-15.0 [facility] ([place] Comment on above: Performed By: #### A BOG, ADIFF, GFR, ANEU, CBC, BMP, ALB, ANSG ####[address] [place], [place] [address] Glucose [Mass/Vol] 90 mg/dL Normal 80-115 [facility] ([place] Comment on above: Performed By: #### A BOG, ADIFF, GFR, ANEU, CBC, BMP, ALB, ANSG ####[address] [place], [place] [address] Potassium [Moles/Vol] 4.8 mmol/L Normal 3.5-5.1 [facility] ([place] Comment on above: Performed By: #### A BOG, ADIFF, GFR, ANEU, CBC, BMP, ALB, ANSG ####[address] [address] [place], [place] [address] Sodium [Moles/Vol] 141 mmol/L Normal 136-145 [facility] ([place] Comment on above: Performed By: #### A BOG, ADIFF, GFR, ANEU, CBC, BMP, ALB, ANSG ####[address] [place], [place] [address] Urea nitrogen [Mass/Vol] 18 mg/dL Normal 7-18 [facility] ([place] Comment on above: Performed By: #### A BOG, ADIFF, GFR, ANEU, CBC, BMP, ALB, ANSG ####[place] [address] [place], [place] [address] CBCon 05-22-2023 Erythrocyte distribution width (RBC) [Ratio] 15.7 % High 11.5-14.5 [facility] ([place] Comment on above: Order Comment: Pre-A dmission Testing Performed By: #### A BOG, ADIFF, GFR, ANEU, CBC, BMP, ALB, ANSG ####[address] [place], [place] [address] Hematocrit (Bld) [Volume fraction] 40.6 % Normal 37.0-47.0 [facility] ([place] Comment on above: Order Comment: Pre-A dmission Testing Performed By: #### A BOG, ADIFF, GFR, ANEU, CBC, BMP, ALB, ANSG ####[place] [address] [place], [place] [address] Hgb 13.1 G/dL Normal 12.0-16.0 [facility] ([place] Comment on above: Order Comment: Pre-A dmission Testing Performed By: #### A BOG, ADIFF, GFR, ANEU, CBC, BMP, ALB, ANSG ####[address] [place], [place] [address] MCH (RBC) [Entitic mass] 26.5 pg Low 27.0-31.2 [facility] ([place] Comment on above: Order Comment: Pre-A dmission Testing Performed By: #### A BOG, ADIFF, GFR, ANEU, CBC, BMP, ALB, ANSG ####[address] [place], [place] [address] MCHC 32.2 G/dL Low 33.0-37.0 [facility] ([place] Comment on above: Order Comment: Pre-A dmission Testing Performed By: #### A BOG, ADIFF, GFR, ANEU, CBC, BMP, ALB, ANSG ####[place] [address] [place], [place] [address] MCV (RBC) [Entitic vol] 82.4 fL Normal 80.0-94.0 A [facility] ([place] Comment on above: Order Comment: Pre-A dmission Testing Performed By: #### A BOG, ADIFF, GFR, ANEU, CBC, BMP, ALB, ANSG ####[place] [address] [place], [place] [address] Platelet 259 10 3/mcL Normal 130-400 [facility] ([place] Comment on above: Order Comment: Pre-A dmission Testing Performed By: #### A BOG, ADIFF, GFR, ANEU, CBC, BMP, ALB, ANSG ####[place] [address] [place], [place] [address] Platelet mean volume (Bld) [Entitic vol] 8.1 fL Normal 7.4-10.4 [facility] ([place] Comment on above: Order Comment: Pre-A dmission Testing Performed By: #### A BOG, ADIFF, GFR, ANEU, CBC, BMP, ALB, ANSG ####[place] [address] [place], [place] [address] RBC 4.92 10 6/mcL Normal 4.20-5.40 [facility] ([place] Comment on above: Order Comment: Pre-A dmission Testing Performed By: #### A BOG, ADIFF, GFR, ANEU, CBC, BMP, ALB, ANSG ####[place] [address] [place], [place] [address] WBC 4.4 10 3/mcL Low 4.6-10.8 [facility] ([place] Comment on above: Order Comment: Pre-A dmission Testing Performed By: #### A BOG, ADIFF, GFR, ANEU, CBC, BMP, ALB, ANSG ####[place] [address] [place], [place] [address] Gel ABOon 05-22-2023 ABO/Rh Interp Positive Invalid Interpretation Code [facility] ([place] Comment on above: Performed By: #### A BOG, ADIFF, GFR, ANEU, CBC, BMP, ALB, ANSG ####[place] [address] [place], [place] [address] Gel ABSon 05-22-2023 Antibody Screen Gel Negative Normal [facility] ([place] Comment on above: Performed By: #### A BOG, ADIFF, GFR, ANEU, CBC, BMP, ALB, ANSG ####[place] [address] [place], [place] [address] LABORATORYOrdered By: Marcia Butterfield on 05-22-2023 ABO/Rh Interp Positive Invalid Interpretation Code AO BB SS Antibody Screen Gel Negative ABSC (05/22/23 1:52 PM) Invalid Interpretation Code AO BB SS LABORATORYOrdered By: [employer] SYSTEM on 05-22-2023 Albumin BCP dye [Mass/Vol] [...] Comment on above: Result Comment: Note s [id number] MRSA PCR Int Staph aureus DNA detected [...] 05-22-2023 MRSA (PCR) Detected Abnormal Not Detected [facility] ([place]) Comment on above: Result Comment: Note s [id number] Performed By: #### M RSAPCR ####[place] [address] MRSA PCR Int Normal [facility] ([place]) Comment on above: Result Comment: Stap h [...] See Below Performed By: #### M RSAPCR ####[place] [address] Vital Signs Date Time Vital Sign Value Performing Clinician Faci lity 08-20-2025 14:45-0400 Diastolic Blood Pressure Non-Invasive 70 mm[Hg] CHINEDU GARCIA MD [address] [place] [address] 08-20-2025 14:45-0400 Heart rate 51 /min CHINEDU GARCIA MD [address] [place] [address] 08-20-2025 14:45-0400 Respiratory rate 18 /min CHINEDU GARCIA MD [address] 08-20-2025 14:45-0400 Systolic Blood Pressure Non-Invasive 124 mm[Hg] CHINEDU GARCIA MD [facility] 08-20-2025 14:11-0400 Diastolic Blood Pressure Non-Invasive 81 mm[Hg] CHINEDU GARCIA MD [facility] 08-20-2025 14:11-0400 Heart rate 49 /min CHINEDU GARCIA MD [address] [place] [address] 08-20-2025 14:11-0400 Respiratory rate 18 /min CHINEDU GARCIA MD [facility] 08-20-2025 14:11-0400 Systolic Blood Pressure Non-Invasive 137 mm[Hg] CHINEDU GARCIA MD [address] [place] [address] 08-20-2025 13:39-0400 Diastolic Blood Pressure Non-Invasive 64 mm[Hg] CHINEDU GARCIA MD [facility] 08-20-2025 13:39-0400 Heart rate 46 /min CHINEDU GARCIA MD [facility] 08-20-2025 13:39-0400 Respiratory rate 18 /min CHINEDU GARCIA MD [facility] 08-20-2025 13:39-0400 Systolic Blood Pressure Non-Invasive 131 mm[Hg] CHINEDU GARCIA MD [facility] 08-20-2025 13:10-0400 Heart rate 47 /min CHINEDU GARCIA MD [facility] 08-20-2025 12:40-0400 Blood Pressure Cuff Size CHINEDU GARCIA MD [facility] 08-20-2025 12:40-0400 Blood Pressure Location CHINEDU GARCIA MD [facility] 08-20-2025 12:40-0400 Blood Pressure Method CHINEDU GARCIA MD [facility] 08-20-2025 12:40-0400 Heart rate 54 /min CHINEDU GARCIA MD [facility] 08-20-2025 12:25-0400 Blood Pressure Cuff Size CHINEDU GARCIA MD [facility] 08-20-2025 12:25-0400 Blood Pressure Location CHINEDU GARCIA MD [facility] 08-20-2025 12:25-0400 Blood Pressure Method CHINEDU GARCIA MD [facility] 08-20-2025 11:55-0400 Blood Pressure Cuff Size CHINEDU GARCIA MD [facility] 08-20-2025 11:55-0400 Blood Pressure Location CHINEDU GARCIA MD [facility] 08-20-2025 11:55-0400 Blood Pressure Method CHINEDU GARCIA MD [facility] 08-20-2025 11:34-0400 Mean blood pressure 99 mm[Hg] CHINEDU GARCIA MD [facility] 08-20-2025 11:29-0400 Mean blood pressure 96 mm[Hg] CHINEDU GARCIA MD [facility] 08-20-2025 11:24-0400 Mean blood pressure 92 mm[Hg] CHINEDU GARCIA MD [facility] 08-20-2025 09:05-0400 Heart rate 47 /min CHINEDU GARCIA MD [facility] 08-20-2025 08:48-0400 Body height 167.6 cm CHINEDU GARCIA MD [facility] 08-20-2025 08:48-0400 Body temperature 97.88 [degF] CHINEDU GARCIA MD [facility] 08-20-2025 08:48-0400 Body weight 79 kg CHINEDU GARCIA MD [facility] 08-20-2025 08:48-0400 Body weight 28.12 kg/m2 CHINEDU GARCIA MD [facility] 06-12-2023 12:02-0400 Body temperature 97.52 [degF] DR LAUREL MEDINA MD [facility] 06-12-2023 12:02-0400 Diastolic Blood Pressure Non-Invasive [address] LAUREL MEDINA MD [facility] 06-12-2023 12:02-0400 Heart rate 48 /min DR LAUREL MEDINA MD [facility] 06-12-2023 12:02-0400 Respiratory rate 16 /min DR LAUREL MEDINA MD [facility] 06-12-2023 12:02-0400 Systolic Blood Pressure Non-Invasive [address] LAUREL MEDINA MD [facility] 06-12-2023 06:15-0400 Body temperature 97.88 [degF] DR LAUREL MEDINA MD [facility] 06-12-2023 06:15-0400 Diastolic Blood Pressure Non-Invasive [address] LAUREL MEDINA MD [facility] 06-12-2023 06:15-0400 Heart rate 51 /min DR LAUREL MEDINA MD [facility] 06-12-2023 06:15-0400 Respiratory rate 16 /min DR LAUREL MEDINA MD [facility] 06-12-2023 06:15-0400 Systolic Blood Pressure Non-Invasive [address] LAUREL MEDINA MD [facility] 06-12-2023 04:36-0400 Body temperature 97.7 [degF] DR LAUREL MEDINA MD [facility] 06-12-2023 04:36-0400 Diastolic Blood Pressure Non-Invasive [address] LAUREL MEDINA MD [facility] 06-12-2023 04:36-0400 Heart rate 48 /min DR LAUREL MEDINA MD [facility] 06-12-2023 04:36-0400 Respiratory rate 16 /min DR LAUREL MEDINA MD [facility] 06-12-2023 04:36-0400 Systolic Blood Pressure Non-Invasive [address] LAUREL MEDINA MD [facility] 06-11-2023 23:37-0400 Heart rate 61 /min DR LAUREL MEDINA MD [facility] 06-11-2023 19:00-0400 Heart rate 62 /min DR LAUREL MEDINA MD [facility] 06-11-2023 15:23-0400 Heart rate 58 /min DR LAUREL MEDINA MD [facility] 06-11-2023 15:03-0400 Body height 167.[address] LAUREL MEDINA MD [facility] 06-11-2023 15:03-0400 Body weight 81.[address] LAUREL MEDINA MD [facility] 06-11-2023 15:03-0400 Body weight 29.12 kg/m2 DR LAUREL MEDINA MD [facility] 06-11-2023 13:52-0400 Body temperature 96.08 [degF] DR LAUREL MEDINA MD [facility] 06-11-2023 13:30-0400 Respiratory Rate - Anes 11 br/min DR LAUREL MEDINA MD [facility] 06-11-2023 13:25-0400 Respiratory Rate - Anes 10 br/min DR LAUREL MEDINA MD [facility] 06-11-2023 13:20-0400 Respiratory Rate - Anes 10 br/min DR LAUREL MEDINA MD [facility] 06-11-2023 08:35-04[address] Pressure Cuff Size DR LAUREL MEDINA MD [facility] 06-11-2023 08:35-[address] LAUREL MEDINA MD [facility] 06-11-2023 08:35-[address] LAUREL Leone [facility] 06-11-2023 08:35-0400 Body height 167.[address] LAUREL MEDINA MD [facility] 06-11-2023 08:35-0400 Body temperature 96.62 [degF] DR LAUREL MEDINA MD [facility] 06-11-2023 08:35-0400 Body weight 81.[address] LAUREL MEDINA MD [facility] 06-11-2023 08:35-0400 Body weight 29.12 kg/m2 DR LAUREL MEDINA MD [facility] 05-22-2023 13:16-0400 Blood Pressure Cuff Size DR LAUREL MEDINA MD [facility] 05-22-2023 13:16-[address] LAUREL MEDINA MD [facility] 05-22-2023 13:16-[address] LAUERL Leone [facility] 05-22-2023 13:16-0400 Body height 167.[address] LAUREL MEDINA MD [facility] 05-22-2023 13:16-0400 Body weight 79.[address] LAUREL MEDINA MD [facility] 05-22-2023 13:16-0400 Body weight 28.3 kg/m2 DR LAUREL MEDINA MD [facility] 05-22-2023 13:16-0400 Diastolic Blood Pressure Non-Invasive [address] LAUREL MEDINA MD [facility] 05-22-2023 13:16-0400 Heart rate 59 /min DR LAUREL MEDINA MD [facility] 05-22-2023 13:16-0400 Systolic Blood Pressure Non-Invasive [address] LAUREL MEDINA MD [facility] Encounters Encounter Date Encounter Type Care Provider Facility Start: 08-20-2025 End: 08-20-[address] KYUNG PARKER MD Facility:A Start: 08-20-2025 End: 08-20-2025 Patient encounter procedure CHINEDU GARCIA MD [facility] Start: 06-15-2025 End: 06-15-2025 ambulatory DILIP RUIZ [facility] Start: 06-07-2025 End: 06-07-2025 ambulatory DESEAN [facility] Start: 06-07-2025 End: 06-07-2025 ambulatory FEBRUARY [facility] Start: 05-27-2025 End: 05-27-2025 ambulatory DESEAN [facility] Start: 05-24-2025 End: 05-24-2025 ambulatory DESEAN [facility] Start: 05-24-2025 End: 05-24-2025 ambulatory KYUNG COHEN [facility] Start: 05-03-2025 End: 05-03-[address] Kyung Parker MD Work Phone: -[facility] Start: 05-03-2025 End: 05-03-[address] Dilip Ruiz MD -[facility] Work Phone: Start: 05-03-2025 End: 05-03-2025 ambulatory Dilip Ruiz Facility:[facility] Start: 04-30-2025 End: 04-30-2025 ambulatory CHINEDU GARCIA [facility] Start: 04-12-2025 Encounter for gynecological examination (general) (routine) without abnormal findings [place] [facility] Start: 01-06-2025 End: 01-06-2025 [facility] Start: 10-19-2024 End: 10-19-2024 ambulatory Chandni Mi Facility:[facility] Start: 08-19-2024 End: 08-19-2024 ambulatory KYUNG PARKER [facility] Start: 07-07-2024 End: 07-07-2024 [facility] Start: 06-11-2023 End: 06-12-2023 Evaluation and management of inpatient JOHN Johnny [employer]IT[employer] Facility:B Start: 06-11-2023 End: 06-12-2023 Evaluation and management of inpatient DR LAUREL MEDINA MD [facility] Start: 05-22-2023 End: 05-23-[address] LAUREL MEDINA MD Facility:B Start: 05-22-2023 End: 05-22-[address] LAUREL MEDINA MD [facility] Procedures Date Procedure Procedure Detail Performing Clinician [...] MEDINA MD Payers Date Payer Category Payer Medicare [id number] 2025 Private Health Insurance [id number] 2024 Medicare [id number] 2024 Self-pay 2023 Unknown [id number] 2023 Private Health Insurance [id number] 1959 Unknown [id number] 2.16.8 [id number] 1959 Unknown [id number] 2.16.8 [id number] 1959 Unknown [id number] 2.16.8 [id number] 1959 Unknown [id number] 2.16.8 40.1.456721.3.579.2.651 1959 Unknown [id number] 2.16.8 40.1.067038.3.579.2.651 1959 Unknown [id number] 2.16.8 40.1.086497.3.579.2.651 1959 Unknown [id number] 2.16.8 40.1.614485.3.579.2.651 1959 Unknown [id number] 2.16.8 40.1.478645.3.579.2.651 1959 Unknown [id number] 2.16.8 40.1.449105.3.579.2.651 1959 Unknown [id number] 2.16.8 40.1.444920.3.579.2.651 1959 Unknown [id number] 2.16.8 40.1.385092.3.579.2.651 1959 Unknown [id number] 2.16.8 40.1.206058.3.579.2.651 1959 Unknown [id number] 2.16.8 40.1.447136.3.579.2.651 1959 Unknown [id number] 2.16. [id number] Unknown [id number] Unknown [id number] 2.16.8 [id number] Unknown [id number] 2.16.8 [id number] Social History Date Type Detail Facility Start: 05-22-2023 Tobacco smoking status Never s moked tobacco (finding) [facility] Sex Assigned At [facility] Start: 10-19-2024 Tobacco smoking stat [facility] Ex-smoker (finding) [facility] Start: 1960 Sex Assigned At Female [facility] Start: 12-13-2005 Sex Female (finding) [facility] Start: 08-20-2025 No, per patient [facility] Functional Status Date Assessment Result Facility 08-20-2025 Functional Status Safety level maintained [facility] 08-20-2025 Functional Status [facility] 08-20-2025 Functional Status Sensory Deficits None A [facility] 06-12-2023 Functional Status Front wheeled walker [facility] 06-12-2023 Functional Status 3 [facility] 06-12-2023 Functional Status Door open, Room check performed [facility] 06-12-2023 Functional Status [facility] 06-11-2023 Functional Status [facility] 06-11-2023 Functional Status [facility] 06-11-2023 Functional Status [facility] 06-11-2023 Functional Status [facility] 06-11-2023 Functional Status Single level home [facility]] 06-11-2023 Functional Status ice chips and sips take n [facility] 06-11-2023 Functional Status [facility] 05-22-2023 Functional Status Sensory Deficits None A [facility] Mental Status Date Assessment Result Facility 08-20-2025 Mental Status Orientation Oriented x 4 [facility] 08-20-2025 Mental Status [facility] 06-12-2023 Mental Status Oriented x 4 [facility] 06-12-2023 Mental Status [facility] 06-11-2023 Mental Status [facility] 06-11-2023 Mental Status [facility] Clinical Notes 05-18-2023 to 08-20-2025 Note Date & Type Note Facility 08-20-2025 Hospital Discharge instructions Patient Education 08/20/2025 15:06:10 Radiology- CT Lung Biopsy 08/14/2024(CUSTOM) [facility] Lung Biopsy Discharge Instructions Interventional Radiology [facility] [address] [place] [address] Today, you had a biopsy of your lung tissue. This procedure was done to help your doctor diagnose and treat the signs and symptoms you have been experiencing. These instructions should be followed after your procedure to reduce the chance of experiencing complications. Diet: Resume your normal diet as tolerated. Activity: Rest for the remainder of the day. You may resume your normal activity tomorrow. You may bathe/shower after 24 hours. Do not soak or submerge site (including swimming or hot tubs) until a scab forms. No heavy lifting, pushing, or straining. Dressing: Check the site for bleeding. Apply pressure to the site if bleeding excessively and call your physician. Change the band aid as needed; it can be removed after 24 hours. Keep the site dry at all times until a scab forms over the site. Pain Control: The puncture site may be sore for 1 to 2 days following the procedure. Vclx-fvl-[id number] pain medication should be used for pain or discomfort. Please check with the physician who ordered this procedure for you for their specific recommendations. If your pain is not relieved or becomes more severe, notify the physician who sent you for this procedure. If you were sedated for this procedure: Avoid alcoholic beverages for 24 hours after your procedure. Do not drive or operate heavy machinery for 24 hours after your procedure. Do not make any legal decisions for 24 hours after your procedure. Medication: Please resume resume medications as scheduled. When to seek medical help: An increase in shortness of breath. Severe chest pain. Bloody sputum that get worse or last more than 24 hours. Lightheadedness, dizziness, or fainting. Infection: fever greater than 101 degrees, chills, redness, warmth, swelling, bleeding, or pus from puncture site. If you experience any of these issues during the first 24 hours, please follow the instruction below: 8:00 am- 5:00 pm call [phone] After 24 hours, contact the physician who ordered this procedure for you. Obtaining test results: Please make an appointment with your doctor to obtain your test results. They are usually available within 4 to 7 business days. Do not assume everything is normal if you have not heard from your doctor or medical facility. It is important for you to follow up on all of your test results. 08/20/2025 15:05:20 Moderate Conscious Sedation, Adult, Care After Moderate Conscious Sedation, Adult, Care After These instructions provide you with information about caring for yourself after your procedure. Your health care provider may also give you more specific instructions. Your treatment has been planned according to current medical practices, but problems sometimes occur. Call your health care provider if you have any problems or questions after your procedure. What can I expect after the procedure? After your procedure, it is common: To feel sleepy for several hours. To feel clumsy and have poor balance for several hours. To have poor judgment for several hours. To vomit if you eat too soon. Follow these instructions at home: For at least 24 hours after the procedure: Do not: ?Participate in activities where you could fall or become injured. ?Drive. ?Use heavy machinery. ?Drink alcohol. ?Take sleeping pills or medicines that cause drowsiness. ?Make important decisions or sign legal documents. ?Take care of children on your own. Rest. Eating and drinking Follow the diet recommended by your health care provider. If you vomit: ?Drink water, juice, or soup when you can drink without vomiting. ?Make sure you have little or no nausea before eating solid foods. General instructions Have a responsible adult stay with you until you are awake and alert. Take sfic-ren-enzlwea and prescription medicines only as told by your health care provider. If you smoke, do not smoke without supervision. Keep all follow-up visits as told by your health care provider. This is important. Contact a health care provider if: You keep feeling nauseous or you keep vomiting. You feel light-headed. You develop a rash. You have a fever. Get help right away if: You have trouble breathing. This information is not intended to replace advice given to you by your health care provider. Make sure you discuss any questions you have with your health care provider. Document Released: 08/11/2014 Document Revised: 10/03/2018 Document Reviewed: 02/09/2017 [employer] Patient Education [employer]. Follow Up Care 07/21/2025 14:53:55 With:CHINEDU GARCIA MD Address: [address] [address] [facility] [place] [phone] When: Unknown Comments:Follow-up as needed Follow-up as scheduled With:Go to emergency room if symptoms worsen Address:Unknown When: Unknown [facility] 08-20-2025 Summary of episode note Discharge Instructions Thank you for allowing [place] to assist you with your healthcare needs. The following is important discharge information regarding your hospital visit. Your Care Team KYUNG PARKER MD What to do next Follow Up Appointments Follow Up with CHINEDU GARCIA MD Where:[address] [address] [facility] [place] [address]- [phone] Additional Information: Follow-up as needed Follow-up as scheduled Follow Up with Go to emergency room if symptoms worsen Allergies No Known Medication Allergies Medications Please ask your primary doctor or pharmacist before taking any other medication not listed, including over the counter drugs, herbal medications, vitamins and or supplements as they may interact with your home medications. What How Much When Instructions Last Dose Unchanged amLODIPine (amLODIPine 5 mg oral tablet) 1 tab(s) by mouth Once a day Unchanged ascorbic acid (Vitamin C 500 mg oral tablet) 2 tab(s) by mouth Once a day Unchanged ascorbic acid/ chondroitin/ glucosamine/ manganese (Glucosamine Chondroitin) 2 cap by mouth Once a day Unchanged balsalazide (balsalazide 750 mg oral capsule) 3 cap by mouth Three (3) times a day Unchanged ferrous sulfate (ferrous sulfate 325 mg (65 mg elemental iron) oral delayed release tablet) 1 tab(s) by mouth Once a day Unchanged herbal/ nutritional product (turmeric 500 mg oral capsule) 1 cap by mouth Every day Unchanged hydroxychloroquine (Plaquenil 200 mg oral tablet) 1 tab(s) by mouth Two (2) times a day Unchanged mesalamine (mesalamine 4 g/ 60 mL rectal enema) 1 Each in the rectum Daily at bedtime Unchanged mometasone nasal (Nasonex 50 mcg/ inh nasal spray) 1 spray(s) each nostril Once a day Unchanged pantoprazole (pantoprazole 20 mg oral enteric coated tablet) 1 tab(s) by mouth Once a day Unchanged sertraline (Zoloft 25 mg oral tablet) 1 tab(s) by mouth Every day Please take this list to your next doctor s visit. Bring all medications you take, including over the counter medications, herbals and other supplements with you to your doctor s visit. Patients and families are reminded to discard old lists and to update any records with all medication providers or retail pharmacies. [employer] [facility] Lung Biopsy Discharge Instructions Interventional Radiology [facility] [address] [place] [address] Today, you had a biopsy of your lung tissue. This procedure was done to help your doctor diagnose and treat the signs and symptoms you have been experiencing. These instructions should be followed after your procedure to reduce the chance of experiencing complications. Diet: Resume your normal diet as tolerated. Activity: Rest for the remainder of the day. You may resume your normal activity tomorrow. You may bathe/shower after 24 hours. Do not soak or submerge site (including swimming or hot tubs) until a scab forms. No heavy lifting, pushing, or straining. Dressing: Check the site for bleeding. Apply pressure to the site if bleeding excessively and call your physician. Change the band aid as needed; it can be removed after 24 hours. Keep the site dry at all times until a scab forms over the site. Pain Control: The puncture site may be sore for 1 to 2 days following the procedure. Jpfa-uww-[id number] pain medication should be used for pain or discomfort. Please check with the physician who ordered this procedure for you for their specific recommendations. If your pain is not relieved or becomes more severe, notify the physician who sent you for this procedure. If you were sedated for this procedure: Avoid alcoholic beverages for 24 hours after your procedure. Do not drive or operate heavy machinery for 24 hours after your procedure. Do not make any legal decisions for 24 hours after your procedure. Medication: Please resume resume medications as scheduled. When to seek medical help: An increase in shortness of breath. Severe chest pain. Bloody sputum that get worse or last more than 24 hours. Lightheadedness, dizziness, or fainting. Infection: fever greater than 101 degrees, chills, redness, warmth, swelling, bleeding, or pus from puncture site. If you experience any of these issues during the first 24 hours, please follow the instruction below: 8:00 am- 5:00 pm call [phone] After 24 hours, contact the physician who ordered this procedure for you. Obtaining test results: Please make an appointment with your doctor to obtain your test results. They are usually available within 4 to 7 business days. Do not assume everything is normal if you have not heard from your doctor or medical facility. It is important for you to follow up on all of your test results. Moderate Conscious Sedation, Adult, Care After These instructions provide you with information about caring for yourself after your procedure. Your health care provider may also give you more specific instructions. Your treatment has been planned according to current medical practices, but problems sometimes occur. Call your health care provider if you have any problems or questions after your procedure. What can I expect after the procedure? After your procedure, it is common: To feel sleepy for several hours. To feel clumsy and have poor balance for several hours. To have poor judgment for several hours. To vomit if you eat too soon. Follow these instructions at home: For at least 24 hours after the procedure: Do not: ? Participate in activities where you could fall or become injured. ? Drive. ? Use heavy machinery. ? Drink alcohol. ? Take sleeping pills or medicines that cause drowsiness. ? Make important decisions or sign legal documents. ? Take care of children on your own. Rest. Eating and drinking Follow the diet recommended by your health care provider. If you vomit: ? Drink water, juice, or soup when you can drink without vomiting. ? Make sure you have little or no nausea before eating solid foods. General instructions Have a responsible adult stay with you until you are awake and alert. Take onue-sbb-yhxcpqm and prescription medicines only as told by your health care provider. If you smoke, do not smoke without supervision. Keep all follow-up visits as told by your health care provider. This is important. Contact a health care provider if: You keep feeling nauseous or you keep vomiting. You feel light-headed. You develop a rash. You have a fever. Get help right away if: You have trouble breathing. This information is not intended to replace advice given to you by your health care provider. Make sure you discuss any questions you have with your health care provider. Document Released: 08/11/2014 Document Revised: 10/03/2018 Document Reviewed: 02/09/2017 [employer] Patient Education 2020 [employer] Additional Information VACCINATE! IT SAVES LIVES! Members of the community who have not yet received the COVID-19 vaccine and would like to receive it can visit one of [facility] vaccine clinics. There are many vaccine clinic locations within the [facility]. For locations and available times, please visit https://gettheshot.coronavirus.[place].gov/. It is important to note that some COVID mobile vaccine clinics are held outdoors and may be canceled in rainy or stormy conditions. To learn more about pediatric vaccinations (ages 5-11), we invite you to visit the [facility] webpage. [email or web address]://www.[email or web address].org/pag [email or web address]-Pktqc-Gkyavwlvngx-Frequent cy-Igvoz-Kdsfpzckh.html To learn more about the COVID-19 vaccine, we invite you to visit the CDC website for a list of frequently asked questions.https://www.cdc.gov/louis navirus/2019-ncov/vaccines/faq.htm johnny [facility] Patient Portal Access Instructions: Stay connected with your healthcare team and access your personal medical information anytime with the [facility] Patient Portal. Please follow the directions below to create your [facility] account: 1.Access the email account you provided upon registration to the hospital/physician office.2.Look for an invitation email from [facility].3.Open the email and access the invitation link: Accept Invitation to [facility].4.Fill in the required casper to create your account. To access your account, visit [email or web address] or scan the [employer] code above. Click the blue button labeled Access Patient [...] you will allow to register on the [facility] Patient Portal for access to your information. You can also access the [facility] Patient Portal on the [place] [facility] christine. Simply click on Patient Portal and then log into your account. If you would like to receive a full copy of your medical records, please contact the [facility] Medical Records Department by calling [phone], Saturday through Saturday between 8 a.m. and [...] Call your local pharmacy or go to http://bit.ly/8N5Wl1g to find one close to you.3.Make use of household items: Use cat litter or old coffee grounds to dispose medications if other options are not available. Mix your drugs with these household products, seal them in an airtight container and throw it into the garbage. Call [facility]: [phone] to be sure your drugs can be [...] a CHART COPY. Signatures Patient Education Materials Radiology- CT Lung Biopsy 08/14/2024(CUSTOM) Moderate Conscious Sedation, Adult, Care After Medication Leaflets My discharge plan and instructions have been reviewed and explained to me and IFILIBERTO KATHY L understand my current condition and have read and understand these discharge instructions. I have received a written copy of the plan/instructions. If I have questions, I am aware that I should contact my doctor. 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 Signature: Date/Time: Relationship to Patient: ___ Witness Name/Signature: Date/Time: [facility] 08-20-2025 Note Exam Date Time Procedure Performing Provider Status 08/20/25 2:09 PM IR Biopsy Lung LILLIANA CHING MD; Auth (Verified) [id number] ORIGINAL EXAMINATION: SP BX LUNG PERCUT [id number]/20/2025 2:09 pm SP BX LUNG PERCUT NEEDLE COMPARISON: CT chest dated 04/30/2025 CT abdomen pelvis dated 05/27/2025 HISTORY: ORDERING SYSTEM PROVIDED HISTORY: Reason for Exam: RUL NODULE 20 min sedation, 6 cores TECHNIQUE: INTERVENTIONALIST(S): Lilliana Ching MD CONSENT: The patient/patient's POA/next of kin was informed of the nature of the proposed procedure. The purposes, alternatives, risks, and benefits were explained and discussed. All questions were answered and consent was obtained. SEDATION: Moderate conscious IV sedation services (supervision of administration, induction, and maintenance) were provided by the physician performing the procedure for 20 mins. The physician was assisted by an independent trained observer, an interventional radiology nurse, in the continuous monitoring of patient level of consciousness and physiologic status. RADIATION EXPOSURE: DLP: 299.06 mGy*cm MEDICATION: None. TIME OUT: A time out was performed immediately prior to procedure start with the interventional team, correctly identifying the patient name, date of , MRN, procedure, anatomy (including marking of site and side), patient position, procedure consent form, relevant laboratory and imaging test results, antibiotic administration, safety precautions, and procedure-specific equipment needs. COMPLICATIONS: No immediate adverse events identified. FINDINGS: The patient was position in the right lateral decubitus position. Limited axial CT images were obtained through the chest for the purposes of needle guidance were taken. The images demonstrate a partially calcified nodule within the right lower lobe, which was targeted for CT-guided biopsy. Patient was prepped in the usual sterile manner. Lidocaine was used for local anesthesia. Six passes were made using a 20 g cutting needle via a coxial needle technique. A BioSentry device was utilized to prevent enlarging pneumothorax formation. Postprocedure images demonstrated no evidence of sizeable pneumothorax. A small perilesional hemorrhage was identified. The specimens were sent to pathology for further analysis. The patient tolerated the procedure well without any immediate complications. A chest x-ray is to be performed 2 hours after the procedure. Patient remained asymptomatic following the procedure. IMPRESSION: 1. Uncomplicated CT-guided biopsy of a right lower lobe partially calcified pulmonary nodule. The patient tolerated the procedure well without any immediate complications. The specimens were sent to pathology for further analysis. Interpreted by: Lilliana Ching Preliminary Report By: Lilliana Ching Electronically signed By Lilliana Ching Dictated Date: 08/20/2025 4:37:54 PM Prelim Date: 08/20/2025 4:39:32 PM Sign Date: 08/20/2025 4:39:32 PM Ordering Provider: CHINEDU GARCIA [id number] Evaluation + Plan noteExtracted from: Title:IR Pre-procedureH&P Author:LAKISHA STEPHENS PA-C Date:08/20/25 Interventional Radiology Focused Preprocedure History/Physical Reason for Visit RUL NODULE History of Presenting Illness/Planned IR Procedure Patient presenting with RIGHT lung nodule, here for RIGHT lung lesion biopsy Allergies (1) ActiveSeverityReaction No Known Medication AllergiesNone Documented Home Medications (11) Active amLODIPine 5 mg oral tablet 5 mg = 1 tab(s), Oral, qDay balsalazide 750 mg oral capsule 2,250 mg = 3 cap(s), Oral, TID ferrous sulfate 325 mg (65 mg elemental iron) oral delayed release tablet 325 mg = 1 tab(s), Oral, qDay Glucosamine Chondroitin 2 cap(s), Oral, qDay mesalamine 4 g/60 mL rectal enema 4 gram(s) = 1 EA, Rectal, qHS Nasonex 50 mcg/inh nasal spray 1 spray(s), Nostril, each, qDay pantoprazole 20 mg oral enteric coated tablet 20 mg = 1 tab(s), Oral, qDay Plaquenil 200 mg oral tablet 200 mg = 1 tab(s), Oral, BID turmeric 500 mg oral capsule 500 mg = 1 cap(s), Oral, Daily Vitamin C 500 mg oral tablet 1,000 mg = 2 tab(s), Oral, qDay Zoloft 25 mg oral tablet 25 mg = 1 tab(s), Oral, Daily Problem List/Past Medical History Campos's palsy GERD (gastroesophageal reflux disease) Osteoarthritis Pneumonia Rheumatoid arthritis Sjogren's disease Sleep apnea Surgical History Revision of left total hip arthroplasty: 06/11/23 Total hip replacement Rotator cuff repair Laminectomy Index finger Laparotomy Open reduction and internal fixation of fracture Hysterectomy Facial bone operation Family History No family history recorded. Social History Alcohol Details: Use: Current. Frequency: 1-2 times per month. Home/Environment Details: Domestic Concerns: None. Living situation: Home/Independent. Substance Abuse Details: Use: Never. Tobacco Details: Nicotine Use: Never (less than 100 in lifetime). Physical Exam Vitals: Pwpwvdehwmi52.6 (08:48) Systolic Blood Ipckuhxb146 (09:05) Diastolic Blood Aainvutq19 (09:05) Pulse47 (09:05) YhS813 (08:48) Respiratory RateNo result General: Alert, cooperative. Heart: Regular Lungs: Clear The remainder of the physical exam is noncontributory. Labs Anticoagulation Labs Protime: 10.9 seconds (08/20/25 08:59:00) PT International Ratio: 0.9 ratio (08/20/25 08:59:00) Last Month Hematology: Hgb: 12.3 (08/20/25) : () WBC: 3.3 (08/20/25) Platelet: 234 (08/20/25) PT International Ratio: 0.9 (08/20/25) Additional - Last Month Basophil %: 0.6 (08/20/25) Basophil, Absolute: 0.0 (08/20/25) Eosinophil %: 2.4 (08/20/25) Eosinophil, Absolute: 0.1 (08/20/25) Hct: 38.8 (08/20/25) Lymphocyte %: 19.2 (08/20/25) Lymphocyte, Absolute: 0.6 (08/20/25) MCH: 26.4 (08/20/25) MCHC: 31.7 (08/20/25) MCV: 83.4 (08/20/25) Monocyte %: 10.7 (08/20/25) Monocyte, Absolute: 0.4 (08/20/25) MPV: 7.4 (08/20/25) Neutrophil %: 67.1 (08/20/25) Neutrophil, Absolute: 2.2 (08/20/25) Protime: 10.9 (08/20/25) RBC: 4.65 (08/20/25) RDW: 16.0 (08/20/25) Assessment/Treatment Plan Image guided RIGHT lung lesion biopsy with possible intervention Post Procedure Discharge Plan Patient to be discharged home. Lakisha Stephens PA-C Interventional Radiology Pager: [phone] IR dept: x [phone] Available on [facility] 10-17-2025 Note* Swathi Capps RN: SIGN, AUTHOR, PERFORM Event Display: IR Procedure Record Authored Date: [id number] IR Procedure Record Summary Primary Physician: LILLIANA CHING MD Finalized Date/Time: 08/20/25 11:43:39 Pt. Name: ABBY DE LOS SANTOS Johnny Roberson/Sex: 1960 Female Med Rec #: [id number] Physician: Financial #: [id number] Pt. Type: O Room/Bed: / Admit/Disch: 08/20/25 08:30:00 - Institution: Allergies identified in patient's electronic medical record at time of printing on 08/20/25 Entry 1 Substance No Known Medication Allergies Reaction Type Allergy Last Modified By: China Alba RN 05/22/23 12:58:29 Case Attendance- IR Entry 1 Entry 2 Entry 3 Case Attendee LILLIANA CHNIG MD Rico, RN Robbin Huang, [facility] Role Performed Primary Surgeon Procedure Nurse Department Director Details Time In 08/20/25 11:10:00 08/20/25 10:45:00 08/20/25 10:45:00 Time Out 08/20/25 11:39:00 08/20/25 11:02:00 08/20/25 11:39:00 Procedure/Preference IR Biopsy Lung (SN) IR Biopsy Lung (SN) IR Biopsy Lung (SN) Card Last Modified By: Swathi Capps RN, Brittaney RN Magee, Brittaney RN 08/20/25 11:41:56 08/20/25 11:41:56 08/20/25 11:41:56 Entry 4 Case Attendee Swathi Capps RN Role Performed Procedure Nurse Details Time In 08/20/25 11:02:00 Time Out 08/20/25 11:39:00 Procedure/Preference IR Biopsy Lung (SN) Card Last Modified By: Swathi Capps RN 08/20/25 11:41:56 Radiology Procedures- IR Entry 1 Procedure/Preference IR Biopsy Lung (SN) Actual Procedure IR BIOPSY LUNG Card Primary Procedure Yes Primary Surgeon LILLIANA CHING MD Anesthesia/Sedation IV Sedation, Local Type Additional Procedure Times Start 08/20/25 11:10:00 Stop 08/20/25 11:31:00 Specialty Service SN Radiology Procedure EBL 1 mL Last Modified By: Swathi Capps RN 08/20/25 11:31:07 Radiology Procedure Details - IR Entry 1 Radiology Sedation Case Times Sedation Start Time 08/20/25 11:11:00 Sedation Stop Time 08/20/25 11:31:00 Sedation Total Time 20 min Radiology - Fluid/Drainage Radiology Contrast Contrast Used? No Radiology Flouroscopy Fluoroscopy Used? Yes Fluoro Dose (mGy) 47.2 Fluoro Time 12.8 seconds Radiology Local Local Used? Yes Local Type: LIDOCAINE Local Dose 7 cc Radiology Procedure Site Site/Location back Site Condition No complications Dressing Type Bandaids, Gauze sponge 4 X 4, Tagaderm Last Modified By: Swathi Capps RN 08/20/25 11:43:29 Cultures and Specimens- IR Entry 1 Kind Specimen Type Nodule Date/Time 08/20/25 11:22:00 Source rul nodule Last Modified By: Swathi Capps RN 08/20/25 11:22:29 General Case Data - IR Entry 1 Case Information Room IR CT Case Level IR Level 2 Wound Class None Specialty SN Radiology Procedure ASA Class None Diagnosis Preop Diagnosis rul nodule Postop Same As Preop Yes Postop Diagnosis rul nodule Last Modified By: Swathi Capps RN 08/20/25 11:04:31 Medication Administration- IR Entry 1 Entry 2 Entry 3 Medication fentanyl versed fentanyl Time Administered 08/20/25 11:11:00 08/20/25 11:11:00 08/20/25 11:17:00 Route of Admin IV Push IV Push IV Push Dose 50 mcg 1 mg 50 mcg Volume VORB * *Verbal Order Read Back (VORB) is required for NON- PHYSICIAN administration of medications. Administered by No No No Physician? Administered by: Swathi Capps RN, Brittaney RN Magee, Brittaney RN Verbal Order Read LILLIANA CHING MD, JAMES M MD GUIRGUIS, JAMES M MD Back from: Last Modified By: Swathi Capps RN, Brittaney RN Magee, Brittaney RN 08/20/25 11:13:34 08/20/25 11:13:34 08/20/25 11:17:46 Entry 4 Medication versed Time Administered 08/20/25 11:17:00 Route of Admin IV Push Dose 1 mg Volume VORB * *Verbal Order Read Back (VORB) is required for NON- PHYSICIAN administration of medications. Administered by No Physician? Administered by: Swathi Capps RN Verbal Order Read LILLIANA CHING MD Back from: Last Modified By: Swathi Capps RN 08/20/25 11:17:46 Procedure Case Times- IR Entry 1 Patient In Procedure Patient In OR 08/20/25 10:45:00 Patient Out of OR 08/20/25 11:39:00 Procedure Start/Stop Procedure Start Time 08/20/25 11:10:00 Procedure Stop Time 08/20/25 11:31:00 Last Modified By: Swathi Capps RN 08/20/25 11:41:54 Immediate Post OP Note - IR Entry 1 Immediate Post Yes Findings RLL nodule biopsy. 6 Procedure Note cores obtained. Patient displayed for tolerated the procedure Physician to review well without immediate complication. Closure Technique Closure Technique Primary Last Modified By: Swathi Capps RN 08/20/25 11:41:48 Immediate Post OP Note - IR Signed By: LILLIANA CHING MD 08/20/25 11:32 Allergy Information- IR Entry 1 Allergies Reviewed? Yes Allergies Reviewed Medical Record With Last Modified By: MANUEL Gómez 08/20/25 10:57:19 Radiology Protocols/Time Out- IR Entry 1 Preprocedure Clinician Verifies Correct patient ID When Clinically Confirmation of correct using name & date Indicated side(s) and site(s), or MRN, Accurate Correct diagnostic and procedure, complete radiology tests Informed Consent, H & P available update immediately prior to procedure, if applicable OR/Procedure Room/Bedside Time 08/20/25 11:10:00 Clinician Verifies Correct patient identity including EMR & records using name and date or medical record number, Accurate procedure consent form, Correct patient position, Necessary equipment is available When Applicable Confirmation correct Team Members LILLIANA CHING MD, side and site marked, Present for Time Out Rico, Sal Peters, Relevant images and [employer] STAPLETON, results are properly Swathi JACKSON labeled and appropriately displayed, Alcohol based prep dry Instrument Sterility Procedure IR Biopsy Lung (SN) Last Modified By: Swathi Capps RN 08/20/25 11:13:11 Skin Prep- IR Entry 1 Procedure IR Biopsy Lung (SN) Skin Prep Prep Area Back Side Right By LILLIANA CHING MD Prep Agents Chloraprep Hair Removal Method N/A Last Modified By: Swathi Capps RN 08/20/25 11:03:59 Patient Positioning- IR Entry 1 Procedure IR Biopsy Lung (SN) Body Position OP Right Lateral Feet Uncrossed? Yes Pressure Points Yes Checked Last Modified By: Swathi Capps RN 08/20/25 11:04:06 Radiology Procedure Plan - IR Entry 1 Radiology - Nursing Care Plan Outcome Statement The patient Outcome Statement The patient receives demonstrates knowledge Cont. appropriate of the expected medication(s), safely responses to the administered during the operative/invasive perioperative/invasive procedure., The period., The patient is patient's value system, free from signs and lifestyle, ethnicity, symptoms of injury and culture are caused by extraneous considered, respected, objects (equipment, and incorporated in the instrumentation, perioperative plan of sponges, or sharps). care., The patient is free from signs and symptoms of infection. Radiology - Action Plan Outcomes Met? Yes Public Health Officer Swathi Capps RN Completing Procedure Plan Last Modified By: Swathi Capps RN 08/20/25 11:04:22 Case Comments <None> Finalized By: Swathi Capps RN Document Signatures Signed By: Swathi Capps RN 08/20/25 11:43 [facility] 10-17-2025 Note* Exam Date Time Procedure Performing Provider Status 08/20/25 1:41 PM XR Chest 1 View SNIAN CASAS MD; [facility] (Verified) [id number] ORIGINAL EXAMINATION: ONE XRAY VIEW OF THE CHEST 08/20/2025 1:41 pm COMPARISON: May 22, 2023 HISTORY: ORDERING SYSTEM PROVIDED HISTORY: Reason for Exam: lung biopsy FINDINGS: Heart is normal in size and there is no vascular congestion present. Minimal infiltrative changes present at the lateral right lung base, presumably post biopsy change. No pleural fluid or air seen. No other contributory finding. IMPRESSION: No post biopsy pneumothorax seen. Interpreted by: Sinan Casas MD Preliminary Report By: Sinan Casas MD Electronically signed By Sinan Casas MD Dictated Date: 08/20/2025 1:50:17 PM Prelim Date: 08/20/2025 1:51:17 PM Sign Date: 08/20/2025 1:51:17 PM Ordering Provider: LILLIANA CHING [facility] [id number] Procedure note INTERVENTIONAL RADIOLOGY POST PROCEDURE NOTE Pre-Procedure Diagnosis: lung lesions bilaterally Post Procedure Diagnosis: Unchanged. Cardiology Manager: Dr. Lilliana Ching MD Procedure & Findings: CT guided biopsy of a right lower lobe lung nodule. Patient tolerated theprocedure without immediate complications. Please see PACS dictation for full procedural report. Anesthesia/Sedation: moderate sedation, local anesthesia Estimated Blood Loss: none Specimen: 6 core specimens Complications: None. Full report with procedural details to follow and will become available under the Radiology tab of Results Review. Please contact for any questions or concerns. Lilliana Ching MD Interventional Radiology Digitally Signed by LILLIANA CHING MD on 08/20/2025 11:49 AM [facility] [id number] Note IR Procedure Record Summary Primary Physician: LILLIANA CHING MD Finalized Date/Time: 08/20/25 11:43:39 Pt. Name: ABBY DE LOS SANTOS/Sex: 1960 Female Med Rec #: [id number] Physician: Financial #: [id number] Pt. Type: O Room/Bed: / Admit/Disch: 08/20/25 08:30:00 - Institution: Allergies identified in patient's electronic medical record at time of printing on 08/20/25 Entry 1 Substance No Known Medication Allergies Reaction Type Allergy Last Modified By: China Alba RN 05/22/23 12:58:29 Case Attendance- IR Entry 1 Entry 2 Entry 3 Case Attendee LILLIANA CHING MD Rico, RN Rachel Gonzalez Role Performed Primary Surgeon Procedure Nurse Department Director Details Time In 08/20/25 11:10:00 08/20/25 10:45:00 08/20/25 10:45:00 Time Out 08/20/25 11:39:00 08/20/25 11:02:00 08/20/25 11:39:00 Procedure/Preference IR Biopsy Lung (SN) IR Biopsy Lung (SN) IR Biopsy Lung (SN) Card Last Modified By: Swathi Capps RN, Brittaney RN Magee, Brittaney RN 08/20/25 11:41:56 08/20/25 11:41:56 08/20/25 11:41:56 Entry 4 Case Attendee Swathi Capps RN Role Performed Procedure Nurse Details Time In 08/20/25 11:02:00 Time Out 08/20/25 11:39:00 Procedure/Preference IR Biopsy Lung (SN) Card Last Modified By: Swathi Capps RN 08/20/25 11:41:56 Radiology Procedures- IR Entry 1 Procedure/Preference IR Biopsy Lung (SN) Actual Procedure IR BIOPSY LUNG Card Primary Procedure Yes Primary Surgeon LILLIANA CHING MD Anesthesia/Sedation IV Sedation, Local Type Additional Procedure Times Start 08/20/25 11:10:00 Stop 08/20/25 11:31:00 Specialty Service SN Radiology Procedure EBL 1 mL Last Modified By: Swathi Capps RN 08/20/25 11:31:07 Radiology Procedure Details - IR Entry 1 Radiology Sedation Case Times Sedation Start Time 08/20/25 11:11:00 Sedation Stop Time 08/20/25 11:31:00 Sedation Total Time 20 min Radiology - Fluid/Drainage Radiology Contrast Contrast Used? No Radiology Flouroscopy Fluoroscopy Used? Yes Fluoro Dose (mGy) 47.2 Fluoro Time 12.8 seconds Radiology Local Local Used? Yes Local Type: LIDOCAINE Local Dose 7 cc Radiology Procedure Site Site/Location back Site Condition No complications Dressing Type Bandaids, Gauze sponge 4 X 4, Tagaderm Last Modified By: Swathi Capps RN 08/20/25 11:43:29 Cultures and Specimens- IR Entry 1 Kind Specimen Type Nodule Date/Time 08/20/25 11:22:00 Source rul nodule Last Modified By: Swathi Capps RN 08/20/25 11:22:29 General Case Data - IR Entry 1 Case Information Room AH IR CT Case Level IR Level 2 Wound Class None Specialty SN Radiology Procedure ASA Class None Diagnosis Preop Diagnosis rul nodule Postop Same As Preop Yes Postop Diagnosis rul nodule Last Modified By: Swathi Capps RN 08/20/25 11:04:31 Medication Administration- IR Entry 1 Entry 2 Entry 3 Medication fentanyl versed fentanyl Time Administered 08/20/25 11:11:00 08/20/25 11:11:00 08/20/25 11:17:00 Route of Admin IV Push IV Push IV Push Dose 50 mcg 1 mg 50 mcg Volume VORB * *Verbal Order Read Back (VORB) is required for NON- PHYSICIAN administration of medications. Administered by No No No Physician? Administered by: Swathi Capps RN, Brittaney RN Magee, Brittaney RN Verbal Order Read LILLIANA CHING MD, JAMES M MD GUIRGUIS, JAMES M MD Back from: Last Modified By: Swathi Capps RN, Brittaney RN Magee, Brittaney RN 08/20/25 11:13:34 08/20/25 11:13:34 08/20/25 11:17:46 Entry 4 Medication versed Time Administered 08/20/25 11:17:00 Route of Admin IV Push Dose 1 mg Volume VORB * *Verbal Order Read Back (VORB) is required for NON- PHYSICIAN administration of medications. Administered by No Physician? Administered by: Swathi Capps RN Verbal Order Read LILLIANA CHING MD Back from: Last Modified By: Swathi Capps RN 08/20/25 11:17:46 Procedure Case Times- IR Entry 1 Patient In Procedure Patient In OR 08/20/25 10:45:00 Patient Out of OR 08/20/25 11:39:00 Procedure Start/Stop Procedure Start Time 08/20/25 11:10:00 Procedure Stop Time 08/20/25 11:31:00 Last Modified By: Swathi Capps RN 08/20/25 11:41:54 Immediate Post OP Note - IR Entry 1 Immediate Post Yes Findings RLL nodule biopsy. 6 Procedure Note cores obtained. Patient displayed for tolerated the procedure Physician to review well without immediate complication. Closure Technique Closure Technique Primary Last Modified By: Swathi Capps RN 08/20/25 11:41:48 Immediate Post OP Note - IR Signed By: LILLIANA CHING MD 08/20/25 11:32 Allergy Information- IR Entry 1 Allergies Reviewed? Yes Allergies Reviewed Medical Record With Last Modified By: MANUEL Gómez 08/20/25 10:57:19 Radiology Protocols/Time Out- IR Entry 1 Preprocedure Clinician Verifies Correct patient ID When Clinically Confirmation of correct using name & date Indicated side(s) and site(s), or MRN, Accurate Correct diagnostic and procedure, complete radiology tests Informed Consent, H & P available update immediately prior to procedure, if applicable OR/Procedure Room/Bedside Time 08/20/25 11:10:00 Clinician Verifies Correct patient identity including EMR & records using name and date or medical record number, Accurate procedure consent form, Correct patient position, Necessary equipment is available When Applicable Confirmation correct Team Members LILLIANA CHING MD, side and site marked, Present for Time Out MANUEL Gómez Myers, Relevant images and Jefry Stanford, results are properly Swathi JACKSON labeled and appropriately displayed, Alcohol based prep dry Instrument Sterility Procedure IR Biopsy Lung (SN) Last Modified By: Swathi Capps RN 08/20/25 11:13:11 Skin Prep- IR Entry 1 Procedure IR Biopsy Lung (SN) Skin Prep Prep Area Back Side Right By LILLIANA CHING MD Prep Agents Chloraprep Hair Removal Method N/A Last Modified By: Swathi Capps RN 08/20/25 11:03:59 Patient Positioning- IR Entry 1 Procedure IR Biopsy Lung (SN) Body Position OP Right Lateral Feet Uncrossed? Yes Pressure Points Yes Checked Last Modified By: Swathi Capps RN 08/20/25 11:04:06 Radiology Procedure Plan - IR Entry 1 Radiology - Nursing Care Plan Outcome Statement The patient Outcome Statement The patient receives demonstrates knowledge Cont. appropriate of the expected medication(s), safely responses to the administered during the operative/invasive perioperative/invasive procedure., The period., The patient is patient's value system, free from signs and lifestyle, ethnicity, symptoms of injury and culture are caused by extraneous considered, respected, objects (equipment, and incorporated in the instrumentation, perioperative plan of sponges, or sharps). care., The patient is free from signs and symptoms of infection. Radiology - Action Plan Outcomes Met? Yes Public Health Officer Swathi Capps RN Completing Procedure Plan Last Modified By: Swathi Capps RN 08/20/25 11:04:22 Case Comments Finalized By: Swathi Capps RN Document Signatures Signed By: Swathi Capps RN 08/20/25 11:43 [id number] History and physical note Interventional Radiology Focused Preprocedure History/Physical Reason for Visit RUL NODULE History of Presenting Illness/Planned IR Procedure Patient presenting with RIGHT lung nodule, here for RIGHT lung lesion biopsy Allergies (1) ActiveSeverityReaction No Known Medication AllergiesNone Documented Home Medications (11) Active amLODIPine 5 mg oral tablet 5 mg = 1 tab(s), Oral, qDay balsalazide 750 mg oral capsule 2,250 mg = 3 cap(s), Oral, TID ferrous sulfate 325 mg (65 mg elemental iron) oral delayed release tablet 325 mg = 1 tab(s), Oral, qDay Glucosamine Chondroitin 2 cap(s), Oral, qDay mesalamine 4 g/60 mL rectal enema 4 gram(s) = 1 EA, Rectal, qHS Nasonex 50 mcg/inh nasal spray 1 spray(s), Nostril, each, qDay pantoprazole 20 mg oral enteric coated tablet 20 mg = 1 tab(s), Oral, qDay Plaquenil 200 mg oral tablet 200 mg = 1 tab(s), Oral, BID turmeric 500 mg oral capsule 500 mg = 1 cap(s), Oral, Daily Vitamin C 500 mg oral tablet 1,000 mg = 2 tab(s), Oral, qDay Zoloft 25 mg oral tablet 25 mg = 1 tab(s), Oral, Daily Problem List/Past Medical History Campos's palsy GERD (gastroesophageal reflux disease) Osteoarthritis Pneumonia Rheumatoid arthritis Sjogren's disease Sleep apnea Surgical History Revision of left total hip arthroplasty: 06/11/23 Total hip replacement Rotator cuff repair Laminectomy Index finger Laparotomy Open reduction and internal fixation of fracture Hysterectomy Facial bone operation Family History No family history recorded. Social History Alcohol Details: Use: Current. Frequency: 1-2 times per month. Home/Environment Details: Domestic Concerns: None. Living situation: Home/Independent. Substance Abuse Details: Use: Never. Tobacco Details: Nicotine Use: Never (less than 100 in lifetime). Physical Exam Vitals: Hmywxsuofzx94.6 (08:48) Systolic Blood Zmfqhvdd417 (09:05) Diastolic Blood Wtyskbgs48 (09:05) Pulse47 (09:05) PjC281 (08:48) Respiratory RateNo result General: Alert, cooperative. Heart: Regular Lungs: Clear The remainder of the physical exam is noncontributory. Labs Anticoagulation Labs Protime: 10.9 seconds (08/20/25 08:59:00) PT International Ratio: 0.9 ratio (08/20/25 08:59:00) Last Month Hematology: Hgb: 12.3 (08/20/25) : () WBC: 3.3 (08/20/25) Platelet: 234 (08/20/25) PT International Ratio: 0.9 (08/20/25) Additional - Last Month Basophil %: 0.6 (08/20/25) Basophil, Absolute: 0.0 (08/20/25) Eosinophil %: 2.4 (08/20/25) Eosinophil, Absolute: 0.1 (08/20/25) Hct: 38.8 (08/20/25) Lymphocyte %: 19.2 (08/20/25) Lymphocyte, Absolute: 0.6 (08/20/25) MCH: 26.4 (08/20/25) MCHC: 31.7 (08/20/25) MCV: 83.4 (08/20/25) Monocyte %: 10.7 (08/20/25) Monocyte, Absolute: 0.4 (08/20/25) MPV: 7.4 (08/20/25) Neutrophil %: 67.1 (08/20/25) Neutrophil, Absolute: 2.2 (08/20/25) Protime: 10.9 (08/20/25) RBC: 4.65 (08/20/25) RDW: 16.0 (08/20/25) Assessment/Treatment Plan Image guided RIGHT lung lesion biopsy with possible intervention Post Procedure Discharge Plan Patient to be discharged home. Lakisha Stephens PA-C Interventional Radiology Pager: [phone] IR dept: [phone] Available on Tavern Digitally Signed by LAKISHA STEPHENS PA-C on 08/20/2025 09:27 AM Digitally Signed by LILLIANA CHING MD on 08/20/2025 09:45 AM [facility] [id number] Interventional radiology Progress note ABBY is scheduled 08/20/25 for an IR LUNG BIOPSY @ 1000 [facility] Radiology 0900 Patient is to be NPO after midnight except for clear fluids 2 hours prior to procedure. They will need to have a roll off driver and someone to stay with them overnight. ABBY chose this date as she will be on vacation during earlier appointment times. CLEAR FLUIDS ALLOWED UP TO 2 HOURS BEFORE PROCEDURE -Water -Coffee -black only - Gatorade -Lemonade or Gustabo-Aid -Soda or Tea (no cream or sugar) -Gelatin without fruit -Popsicles (without cream or fruit) -Juice without pulp (apple, white grape) Rachel Rodriguez Digitally Signed by Sarmad Mendoza on 07/22/2025 08:47 AM [facility] [id number] Note. MICRO - Microbiology PROCEDURE: Acid Fast Bacilli [...] Locations *1: This test was performed at: [address], [facility]- , [facility] ([place])08-08-2023 Note. MICRO - Microbiology PROCEDURE: Acid Fast Bacilli [...] Locations *1: This test was performed at: [address], [facility]- , [facility] ([place])08-08-2023 Note. MICRO - Microbiology PROCEDURE: Acid Fast Bacilli [...] Locations *1: This test was performed at: [address], [facility] , [facility] ([place])07-09-2023 Note. MICRO - Microbiology PROCEDURE: Fungal Culture with [...] Locations *1: This test was performed at: [address], [facility] , [facility] ([place])07-09-2023 Note. MICRO - Microbiology PROCEDURE: Fungal Culture with [...] Locations *1: This test was performed at: [address], [address] [place] [address] ([place])07-09-2023 Note. MICRO - Microbiology PROCEDURE: Fungal Culture with [...] Locations *1: This test was performed at: [address], [address] [place] [address] ([place])06-18-2023 Note. MICRO - Microbiology PROCEDURE: Culture Tissue [*1] [...] Locations *1: This test was performed at: [address], [facility] , [facility]06-18-2023 Note. MICRO - Microbiology PROCEDURE: Culture Tissue [*1] [...] Locations *1: This test was performed at: [address], [facility] , [facility] ([facility]06-18-2023 Note. MICRO - Microbiology PROCEDURE: Culture Tissue [*1] [...] Locations *1: This test was performed at: [facility], [address] [place] [address], [phone]- , [facility] ([place])06-12-2023 Note Discharge Instructions Thank you for allowing [place] to assist you with your healthcare needs. The following is importantdischarge information regarding your hospital visit. Your Care Team Dr Medina Your Diagnosis Bradycardia History of revision of total replacement of left hip joint HTN (hypertension) Hyperkalemia Osteoarthritis Rheumatoid arthritis What to do next Follow Up Appointments Follow Up with RUTH LUCAS PA-C, Orthopedic When 06/24/2023 09:45 AM EDT Why: This is your post-op appointment. Follow-up as scheduled. Where: [facility] [address] [place] [phone] Follow Up with [facility] When 06/14/2023 09:00 AM EDT Why: This is your first physical therapy appointment. Follow-up as scheduled. Where: [address] [place] [phone] The Following Activity and Diet Have Been [...] and or supplements as they may interact withyour home medications. What How Much When Why Instructions Last Dose New acetaminophen (acetaminophen 500 mg oral tablet) 2 tab(s) by mouth Three (3) times a day as needed for as needed for pain Duration: 14 Days not to exceed 3000 mg/ day Pickup at [facility] 3053 06/12/23 at 12n New aspirin (aspirin 81 mg oral delayed release tablet) 1 tab(s) by mouth Two (2) times a day Duration: 30 Days Take 81 mg aspirin twice daily with food for 4 weeks postoperatively for DVT prophylaxis. Pickup at [facility] 1724 06/12/23 at 0809 New docusate-senna (Senokot S 50 mg-8.6 mg oral tablet) 2 tab(s) by mouth Two (2) times a day Duration: 3 Days Take until first bowel movement, then as needed Pickup at [facility] 1724 06/12/23 at 0809 New doxycycline (doxycycline hyclate 100 mg oral capsule) 1 cap by mouth Every 12 hours Duration: 14 Days Pickup at [facility] 172 06/12/23 at 0809 New meloxicam (Mobic 7.5 mg oral tablet) 1 tab(s) by mouth Twice daily with meals Do not take any other nonsteroidal anti-inflammatories while on meloxicam/ Mobic Pickup at [facility] 1724 start tomorrow New oxyCODONE (oxyCODONE 5 mg oral tablet ( IMMEDIATE release )) See instructions History of revision of total replacement of left hip joint 1-2 tab(s) Oral q4h Pickup at [facility] 1724 06/12/23 at 0809 Unchanged amLODIPine (amLODIPine [...] Every day 06/12/23 at 0809 Pharmacy Information [facility]: [address], [place] [id number] [phone] Please take this list to your next [...] FOR SIGNS OF INFECTION: call the office ([phone]) if experencing any of the following: (Usually [...] on your follow up instructions. Form: 338A (69597) R: 03/10 Additional Information VACCINATE! IT SAVES LIVES! Members of the community who have not yet received the COVID-19 vaccine and would like to receive it can visit one of [facility] vaccine clinics. There are many vaccine clinic locations within the [facility]. For locations and available times, please visit [email or web address] It is important to note that some COVID mobile vaccine clinics are held outdoors and may be canceled in rainy or stormy conditions. To learn more about pediatric vaccinations (ages 5-11), we invite you to visit the [facility] webpage. [email or web address]/[email or web address] [email or web address] learn more about the COVID-19 vaccine, we invite you to visit the CDC website for a list of frequently asked questions.https://www.cdc.gov/coronavirus/2019-ncov/vaccines/faq.html [facility] Patient Portal Access Instructions: Stay connected with your healthcare team and access your personal medical information anytime with the [facility] Patient Portal. Please follow the directions below to create your [facility] account: 1.Access the email account you provided upon registration to the hospital/physician office.2.Look for an invitation email from [facility].3.Open the email and access the invitation link: AcceptInvitation to [facility].4.Fill in the required casper to create your account. To access your account, visit [email or web address]. Click the blue button labeled Access Patient Portal and then log in with the username and password that you created in the steps above. You will be able to view your test results, lab results, a summary of your visits, upcoming appointments and more. There is also a convenient messaging option where you can send secure messages to your p rovider. In addition, you will have the ability to download any documents or summaries to your computer and/or send the information securely to a physician. Remember that your healthcare information is confidential, so carefully consider who you will allowto register on the [place] [facility] Patient Portal for access to your information. You can also access the [place] [facility] Patient Portal on the [place] [employer]where christine. Simply click on Patient Portal and then log into your account. If you would like to receive a full copy of your medical records, please contact the [facility] Medical Records Department by calling [phone], Saturday through Saturday between 8 a.m. and 4:30 p.m. HOW TO SAFELY DISPOSE OF PRESCRIPTION MEDICATIONS Please use one of the following methods to safely dispose of your unused medications. 1.Use a drug disposal kit: the drug disposal pouch allows you to safely discard your old and unuseddrugs. Ask your nurse to give you one when you are discharged.2.Visit a local take-back location: Many local pharmacies and police departments have programs that collect old and unwanted prescriptiondrugs. Call your local pharmacy or go to http://iConnectivity.DeepField/0P2Ur6g to find one close to you.3.Make use of household items: Use cat litter or old coffee grounds to dispose medications if other options arenot available. Mix your drugs with these household products, seal them in an airtight container andthrow it into the garbage. Call [facility]: [phone] to be sure your drugs can be [...] COPY. Signatures Patient Education Materials 5 - [facility] Post-op Instruction 06/2017 (89639) Medication Leaflets My discharge plan and instructions have been reviewed and explained to me and I,ABBY DE LOS SANTOS understand my current condition and have read and understand these discharge instructions. I have received a written copy of the plan/instructions. If I have questions, I am aware that I should contact my doctor. 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 Signature: Date/Time: Relationship to Patient: Witness Name/Signature: Date/Time: [facility]08-09-2023 Hospital Discharge instructions Patient Education 06/12/2023 07:36:03 5 - [facility] Post-op Instruction 06/2017 (59283) [facility] Post-operative Instructions PLEASE FOLLOW [facility] POST-OP INSTRUCTIONS GIVEN WATCH FOR SIGNS OF INFECTION: call the office ([phone]) if experencing any of the following: (Usually [...] on your follow up instructions. Form: 338A (43644) R: 03/10 Follow Up Care 05/20/2023 12:40:04 With:[facility] Address: [address] [place] [phone] When:06/14/2023 09:00:00 Comments:This is your first physical therapy appointment. Follow-up as scheduled. With:RUTH LUCAS PA-C, Orthopedic Address: [facility] [address] [place] [phone]- When:06/24/2023 09:45:00 Comments:This is your post-op appointment. Follow-up as scheduled. [facility] 08-09-2023 Note Date of Service June 12, 2023 [...] with the patient potential side effects with thedoxycycline including hypersensitivity to the sunlight and must [...] would like her medications E scribed to [facility]. She has outpatient physical therapy established. Shewill follow-up her postoperative instructions. I did explain to her that we will continue to follow the microbiology specimens and if there are any changes we will contact her if she has been discharged from the hospital. Otherwise upon discharge if she does have any complications she will contact our office. I have reviewed the [place] Automated Rx Reporting System (OARRS) report for this patient for refill pattern and other prescriber involvement as part of the appropriate surveillance for the provision ofacute and chronic controlled medications. The report was requested and reviewed on the date of thisentry, and was considered in the prescribing process This dictation was created using voice recognition software. Phonetic and/or grammatical errors mayexist. Digitally Signed by RUTH LUCAS PA-C on 06/12/2023 07:35 AM [facility]08-08-2023 Note ORIGINAL EXAMINATION: 3 XRAY VIEWS OF [...] Date: 06/11/2023 2:46:00 PM Ordering Provider: [facility]08-08-2023 Note ORIGINAL Images acquired, not reported on this accession number.[facility]08-08-2023 Anesthesiology Consult note Patient: ABBY DE LOS [...] been selected or recorded. Procedure history: Hysterectomy ([id number]). Open reduction and internal fixation of fracture ([id number]). Comments: 05/22/2023 13:04 China Taylor RN LEFT TIB/FIB Facial bone operation ([id number]). Index finger ([id number]). Comments: 05/22/2023 13:05 China Taylor RN RIGHT Laparotomy ([id number]). Comments: 05/22/2023 13:05 China Taylor RN X3 Laminectomy ([id number]). Comments: 05/22/2023 13:04 China Taylor RN L5-S1 Rotator cuff repair ([id number]). Comments: 05/22/2023 13:05 China Taylor RN LEFT Total hip replacement ([id number]). Social History Social & Psychosocial Habits Alcohol [...] Signs(last 24 hrs) Last Charted Heart Rate Qxmboyxlm05 bpm (JUN 11 11:35) Resp Rate 14 br/min (JUN 11 08:35) ENS308 mmHg (JUN 11:35) DBP66 mmHg (JUN 11:35) BMI29.12 (JUN 11:35) Measurements from flowsheet : Measurements 06/11/2023 8:35 EDT Height 167.6 cm Admission Weight 81.8 kg Weight Method Stated [place] Body Weight 59.26 kg Body Mass Index [...] in OR 06/11/2023 11:37 EDT SN - SD - Route of Administration Local SN - SD - Route of Administration Local SN - SD - By (Single) SN - SD - By (Single) SN - SD - By (Single) SN - SD - By (Single) 06/11/2023 11:35 EDT Heart [...] - Additive IRRIGATION CHG 0.05% IRRISEPT 12/CA [id number] SN - IrI - Volume Out 500 [...] Surgeon SN - CAt - Role Performed Program Counselor 2 SN - CAt - Role Performed Program Counselor 1 SN - CAt - Role Performed Scrub 1 SN - CAt - Role Performed Vocational Director 1 SN - CAt - Role Performed ROD PULLER AND COILER SN - CAt - Role Performed Operating Room Specialist SN - CAt - Role Performed Physician Electrostatic Paint Operator SN - CAt - Role Performed Department Director 06/11/2023 9:06 EDT SN - Preop - [...] Allergies No Anesthesia Extension Set Applied Yes Executive Office Manager On Yes Consent Form Signed Yes Patient [...] 8:41 Patient Cleared for Surgery By KYUNG PARKER MD 06/11/2023 8:35 EDT Designated Person #1 We May Share RAMÓN DE LOS SANTOS [phone] Designated Person #1 Relationship Spouse Privacy Restrictions Requested None Height 167.6 cm Admission Weight 81.8 kg Weight Method Stated [place] Body Weight 59.26 kg Body Mass Index [...] per patient Skin Temperature Warm Skin Description [place], Dry Skin Integrity Intact Neurological Symptoms Patient [...] Method Explanation, Printed materials Preferred Spoken Language Iraqi Preferred Written Language Iraqi Teaching Evaluation Verbalizes/Nonverbally indicates understanding Safety Brochure Information Reviewed Unable to complete Jessenia Zayas Video Viewed No Information Given by [...] Time (Not Done) . Assessment and Plan [place] Society of Anesthesiologists (ASA) physical status classification: Class II. Anesthetic Preoperative Plan Premedication: intravenous. Anesthetic technique: Spinal. Induction: intravenously. Maintenance airway: 40% FM. Regional: Spinal. Postoperative pain management: Per surgeon. Informed consent: signed by patient. Digitally Signed by FRANCINE OCASIO on 06/11/2023 11:48 AM [facility]07-15-2023 Note. MICRO - Microbiology PROCEDURE: Blood Culture (bacterial) [...] Locations *1: This test was performed at: [address], [address] [place] [address] ([place])05-18-2023 Note. MICRO - Microbiology PROCEDURE: Blood Culture (bacterial) [...] Locations *1: This test was performed at: [facility], [address] [place] [address], [phone]- , [facility] ([place])Evaluation + Plan note Future Appointments [facility] Evaluation noteNo assessment information available [facility] Work Phone: Hospital course Narrative No data available for this section [facility] Hospital Discharge instructions No data available for this section [facility] Progress note No data available for this section [facility] Reason for referral (narrative)No reason for referral information availableBarnesville Hospital Work Phone: Summary Purpose Family History Relationship Condition Age at Onset Recorded Date/T amparo father Alcoholism Unknown Arthritis Unknown Autoimmune disorder Unknown mother Malignant neoplasm Unknown Myocardial infarction Unknown sister Complication of anesthesia Unknown Hemorrhagic disorder Unknown Hypertension Unknown Osteoporosis Unknown grandmother Diabetes mellitus Unknown brother Chronic obstructive pulmonary disease Unk nown No Family History Records Found Advance Directives No Advanced Directives Records FoundNo Advanced Directives Records FoundNo Advanced Directives Records FoundNo Advanced Directives Records Found Chief Complaint and Reason for Visit Chief Complaint Admit Date SEE ORDER May 03, 2025 2:05 pm Additional Source Comments Patient Care team informatio n (unrecognized section and content) Team Status: Active Member Role/Relationship Status Dates Dr. Kyung Parker MD Primary Care Provider Active Team Status: Inactive Member Role/Relationship Status Dates Dr. Kyung Parker MD Primary Care Provider Active Start: May 03, 2025 End: May 03, 2025 Dr. Dilip Ruiz MD Attending Provider Active Start: May 03, 2025 End: May 03, 2025 Dr. Dilip Ruiz MD Referring Provider Active Start: May 03, 2025 End: May 03, 2025 INFORMATION SOURCE (unrecogn ized section and content) DATE CREATED AUTHOR 08/12/2023 [facility] ([place] DATE CREATED AUTHOR AUTHOR'S ORGANIZ ATION 05/08/2025 [facility] DATE CREATED AUTHOR AUTHOR'S ORGANVALERIE ATION 06/20/2025 [facility] DATE CREATED AUTHOR AUTHOR'S ORGANIZ ATION 09/12/2025 [facility] Goals (unrecognized section and content) Goals may be documented in a n alternate section FOR RECORDS PERTAINING TO PATIENTS WHO ARE [...] BE BASED ON THE PRIMARY CLINICAL RECORDS. [facility] [employer] [facility]. provides no warranty or guarantee of the accuracy or completeness of information in this document.
--- NOTE | 2025-10-27 13:28 | US_ITS ---
PROCEDURE: PELVIC W/ TRANSVAGINAL 10/27/2025 REASON FOR EXAM: ADNEXAL MASS Adnexal mass felt on physical exam. History of hysterectomy 25+ years ago. TECHNIQUE: Procedure Code: [id number] Modality: US Procedure: PELVIC W/ TRANSVAGINAL COMPARISON: None. FINDINGS: Measurements: Uterus: Absent compatible with patient's history of hysterectomy. Right Ovary: Not visualized. Patient is unsure whether she has had an oophorectomy. There are no abnormal adnexal masses seen. There is bowel gas identified in the adnexal region. Left Ovary: Not visualized. Patient is unsure whether she has had an oophorectomy. There are no abnormal adnexal masses seen. There is bowel gas identified in the adnexal region. TRANSABDOMINAL: Uterus: Absent compatible with patient's history of hysterectomy. Right Ovary: Not visualized. Patient is unsure whether she has had an oophorectomy. There are no abnormal adnexal masses seen. There is bowel gas identified in the adnexal region. Left Ovary: Not visualized. Patient is unsure whether she has had an oophorectomy. There are no abnormal adnexal masses seen. There is bowel gas identified in the adnexal region. No large pelvic mass identified. The urinary bladder measures 13.2 x 8.2 by 11.5 cm. The bladder wall is smooth. Urinary bladder volume is 654 mL. TRANSVAGINAL: Uterus: Absent compatible with patient's history of hysterectomy. Right Ovary: Not visualized. Patient is unsure whether she has had an oophorectomy. There are no abnormal adnexal masses seen. There is bowel gas identified in the adnexal region. Left Ovary: Not visualized. Patient is unsure whether she has had an oophorectomy. There are no abnormal adnexal masses seen. There is bowel gas identified in the adnexal region. No large pelvic mass identified. Cul-de-sac: No free intraperitoneal fluid identified. No tenderness. DOPPLER: Color Doppler: Normal color flow doppler signal at both ovaries. Spectral Doppler: Normal arterial inflow and venous outflow signal at both ovaries. US/Pelvic w/ Transvaginal IMPRESSION: Evidence of previous hysterectomy. Neither ovary was visualized today. The pa tient is unsure whether she has had the ovaries surgically removed. NORMAL TRANSABDOMINAL AND TRANSVAGINAL PELVIC ULTRASOUND WITH DOPPLER. Reading Location: [id number]
== END | disposition home or self-care (01) ==
LOC: OPUS 13:14 → US 13:31
PROVIDERS: PCP Internal Medicine; Referring Provider Nurse Practitioner Family; Visit Provider Nurse Practitioner Family
DX: N94.89 Other specified conditions associated with female genital organs and menstrual cycle (principal)
CPT/HCPCS: 76830; 76856